=== PATIENT | female | born 1985 | race Caucasian/White ===

== ENCOUNTER 2016-06-09 13:38 | Emergency (ER) | payer OTHER ==
[~2016-06-09 13:38] MED LIST: COLA100C2 OR; NORCO; PRENTAB8 OR; PRIL20CA OR; [UNRECOGNIZED DRUG - OTHER]
[2016-06-09 14:49] LABS: MEAN CORPUSCULAR HEMOGLOBIN 30.8 pg (27.0-33.0); MEAN CORPUSCULAR HGB CONC 32.2 g/dl (32.0-36.5); MEAN CORPUSCULAR VOLUME 95.5 fl (80.0-96.0); RED CELL DISTRIBUTION WIDTH 12.8 % (11.5-14.5); WHITE BLOOD COUNT 5.9 K/mm3 (4.0-10.0)
--- NOTE | 2016-06-09 15:10 | REP ---
FIRST TRIMESTER OBSTETRIC SONOGRAPHY: HISTORY: Cramping and bleeding. FINDINGS: Transabdominal and transvaginal scanning are performed. Uterus has a subseptate appearance. Its dimensions are 8.5 x 4.9 x 6.3 cm. Endometrium is somewhat thickened. Endometrial thickness is 1.5 cm. No intrauterine gestation is seen. No focal uterine mass is seen. No free fluid is noted. Normal ovaries are seen. Right ovary measures 2.7 x 1.4 x 3.1 cm. Left ovary measures 1.7 x 1.9 x 3.2 cm. Resistive indices in the ovaries are normal at 0.63 on the right and 0.45 on the left. IMPRESSION: Nonspecific sonographic findings: No intrauterine gestation seen. Normal ovaries. No adnexal mass or free fluid. Clinical and possibly sonographic followup is advised. Signed by Regan Benitez MD 06/09/2016 04:01 P
--- NOTE | 2016-06-09 16:49 | EDDOCDS ---
Physician Documentation [facility] Name: Doreen Faye Age: 30 yrs Sex: Female : 1985 Arrival Date: 06/09/2016 Time: 13:38 Bed 5 Private MD: NO PRIMARY PHYSICIAN, . Disposition: 06/09/16 16:07 Discharged to Home/Self Care. Impression: Other specified abnormal uterine and vaginal bleeding - threatened Ab. - Condition is Stable. - Discharge Instructions: First Trimester of , Threatened Miscarriage, Threatened Miscarriage, [id number]. - Prescriptions for Vitamin 27- 0.8 mg Oral Tablet - take 1 tablet by ORAL route once daily; 60 tablet. - Work Release Form - 5 day, Medication Reconciliation, Local Pharmacy Hours form. - Follow up: Neal Palma MD; When: Call to arrange an appointment. Follow up: Emergency Department; When: 48 hours recheck quant recheck. - Problem is new. - Symptoms are unchanged. Historical: - Allergies: no known allergies; - Home Meds: 1. none - PMHx: Irregular heart rate; - PSHx: ; - Social history: Smoking status: Patient uses tobacco products, light tobacco smoker. No barriers to communication noted. - Family history: Not pertinent. - : The pt / caregiver states he / she is not on anticoagulants. Home medication list is obtained from the patient. - Exposure Risk Screening:: None identified. 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 1 in. (154.94 cm) (R); 16:40 BP 128 / 68; Pulse 76; Resp 14; Temp 98.3(O); Pulse Ox 99% on R/A; js13 13:40 Body Mass Index 34.96 (83.91 kg, 154.94 cm) lr2 MDM: 14:15 Hcg, Serum Quantitative Ordered. EDMS 14:15 CBC Ordered. EDMS 14:16 Set up pelvic ordered. sd1 14:16 Type & Screen Ordered. EDMS 14:16 UA Ordered. EDMS 14:17 GC & Chlamydia Amplification Ordered. EDMS 14:17 Urine Culture Ordered. EDMS 14:17 Wet Prep Ordered. EDMS 14:21 US 1st trimester Ordered. EDMS 14:49 TRANSVAGINAL US Ordered. EDMS 14:49 DUPLEX SCAN LIMITED (DOPPLER) Ordered. EDMS 15:15 UA Reviewed. sd1 15:15 Type & Screen Reviewed. sd1 15:15 Hcg, Serum Quantitative Reviewed. sd1 15:15 CBC Reviewed. sd1 15:35 Financial registration complete. gb 15:35 [facility] [place] Payment Agreement was scanned into [employer] and attached to record. gb 16:17 GC & Chlamydia Amplification Ordered. EDMS 16:22 Type & Screen Reviewed. sd1 16:22 Wet Prep Reviewed. sd1 16:22 US 1st trimester Reviewed. sd1 Signatures: Dispatcher [employer] Hayley Goldman MD MD sd1 Karen Noble, Reg Reg Amna Moreno,RN RN js13 Sudha Woods RN RN [facility] The chart was reviewed and I authenticate all verbal orders and agree with the evaluation and treatment provided.Attachments: 15:35 [facility] [place] Payment Agreement gb MTDD
--- NOTE | 2016-06-09 16:49 | EDDOCDS ---
Nurse's Notes [facility] Name: Doreen Faye Age: 30 yrs Sex: Female : 1985 Arrival Date: 06/09/2016 Time: 13:38 Bed 5 Private MD: NO PRIMARY PHYSICIAN, . Diagnosis: Other specified abnormal uterine and vaginal bleeding-threatened Ab Presentation: 06/09 13:44 Presenting complaint: Patient states: sharp pains in stomach started this morning, cjh spotting started this afternoon, just found out I'm , no care yet. Risk factors: the patient reports a small or scant amount of vaginal bleeding. Adult Sepsis Screening: The patient does not have new or worsening altered mentation. Patient's respiratory rate is less than 22. Systolic blood pressure is greater than 100. Patient has a qSOFA score of 0- Negative Sepsis Screen. Suicide/Homicide risk assessment- the patient denies having any suicidal and/or homicidal ideations and does not present with any other emotional, behavioral or mental health complaints. Status: Patient is not a director service or dependent. Transition of care: patient was not received from another setting of care. 13:44 Acuity: AURA Level 3 [facility] 13:44 Method Of Arrival: Walkin/Carried/Asstd [facility] Triage Assessment: 13:46 General: Appears in no apparent distress, comfortable, Behavior is appropriate for age, [facility] cooperative. Pain: Location: abdomen Pain currently is 5 out of 10 on a pain scale. HIV screening NA for this visit Offered previously. GI: Reports Pain is 5 out of 10 on a pain scale. 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 none - PMHx: Irregular heart rate; - PSHx: ; - Social history: Smoking status: Patient uses tobacco products, light tobacco smoker. No barriers to communication noted. - Family history: Not pertinent. - : The pt / caregiver states he / she is not on anticoagulants. Home medication list is obtained from the patient. - Exposure Risk Screening:: None identified. Screenin:35 Screening information is obtained from the patient. Fall risk: No risks identified. js13 Assistance ADL's: requires no assistance with activities of daily living. Abuse/DV Screen: The patient / caregiver reports he/she is: not in a situation that causes fear, pain or injury. Nutritional screening: No deficits noted. Advance Directives: There is no active DNR order. home support is adequate. Assessment: 15:35 General: Appears in no apparent distress, Behavior is appropriate for age, cooperative. js13 Pain: Pain currently is 3 out of 10 on a pain scale. Neurological: Level of Consciousness is awake, alert. Respiratory: Airway is patent Respiratory effort is even, unlabored, Respiratory pattern is regular, symmetrical. GI: Abdomen is non- distended Bowel sounds present X 4 quads. Abd is soft and non tender. Derm: Skin is normal. 16:40 Adult Sepsis Screening: The patient does not have new or worsening altered mentation. js13 Patient's respiratory rate is less than 22. Systolic blood pressure is greater than 100. Patient has a qSOFA score of 0- Negative Sepsis Screen. General: Appears in no apparent distress, Behavior is appropriate for age, cooperative. Pain: Pain currently is 2 out of 10 on a pain scale. Neurological: Level of Consciousness is awake, alert. Respiratory: Airway is patent Respiratory effort is even, unlabored, Respiratory pattern is regular, symmetrical. GI: Abdomen is non- distended Bowel sounds present X 4 quads. Abd is soft and non tender. Derm: Skin is normal. Vital Signs: 13:40 BP 135 / 70; Pulse 78; Resp 17; Temp 98.1(T); Pulse Ox 100% ; Weight 83.91 kg (R); lr2 Height 5 ft. 1 in. (154.94 cm) (R); 16:40 BP 128 / 68; Pulse 76; Resp 14; Temp 98.3(O); Pulse Ox 99% on R/A; js13 13:40 Body Mass Index 34.96 (83.91 kg, 154.94 cm) lr2 Vitals: 13:40 Log In Time: June 09, 2016 at 13:38. lr2 ED Course: 13:39 Patient visited by Beatris Esparza. lr2 13:39 NO PRIMARY PHYSICIAN, . is Private Physician. lr2 13:39 Patient moved to Waiting lr2 13:40 Patient moved to Pre RCE lr2 13:45 Triage Initiated [facility] 14:14 Amna Moreno,RN is Primary Nurse. srm 14:14 Hayley Barahona MD is Attending Physician. sd1 14:14 Patient moved to 5 srm 14:17 Patient visited by Hayley Barahona MD. sd1 14:26 Urine Culture Sent. nb2 14:26 UA Sent. nb2 14:28 Patient moved to Ultrasound am17 14:32 CBC Sent. rn1 14:32 Hcg, Serum Quantitative Sent. rn1 14:32 Type & Screen Sent. rn1 14:46 Patient moved to 5 am17 15:25 US 1st trimester Returned. EDMS 15:31 Patient visited by Rudy Spear PCA. jmv 15:33 Patient name changed from Jasma\S\\S\Yunier\S\ to Jasma\S\Denisa\S\Yunier. EDMS 15:35 [facility] [place] Agreement was scanned into [employer] and attached to record. 15:35 The patient / caregiver is instructed regarding the plan of care and ED course. js13 15:35 No IV's were initiated during this patient's visit. No procedures done that require js13 assistance. 15:36 Patient visited by Amna Moreno,JOE. js13 16:06 Neal Palma MD is Referral Physician. sd1 16:10 Wet Prep Sent. dem1 16:10 GC & Chlamydia Amplification Sent. dem1 Order Results: Lab Order: Type & Screen; SPEC'M 06/09/16 14:28 Test: BLOOD TYPE; Value: O POS; Status: F Test: AB SCREEN (INDIRECT GRICELDA)GEL; Value: NEGATIVE; Status: F Lab Order: Hcg, Serum Quantitative; SPEC'M 06/09/16 14:28 Test: HCG, SERUM QUANTITATIVE; Value: 393; Units: MIU/ML; Status: F Test Note: ; GESTATIONAL AGE APPROXIMATE HCG RANGE (MIU/ML) 0.2-1 WEEK 5-50 1-2 WEEKS 50-500 2-3 WEEKS 100-5,000 3-4 WEEKS 500-10,000 4-5 WEEKS 1,000-50,000 5-6 WEEKS 10,000-100,000 6-8 WEEKS 15,000-200,000 2-3 MONTHS 10,000-100,000 NON FEMALES LESS THAN 3.0 Patient samples may contain human heterophilic antibodies that could react with immunoassays to give falsely elevated or depressed results. This assay has been designed to minimize interference from heterophilic antibodies. Elevated hCG levels have also been associated with trophoblastic disease and nontrophoblastic neoplasms. The possibility of having these diseases should be considered before a diagnosis of is made. This test is not intended for use as a surrogate marker for aiding in the diagnosis or monitoring the treatment of cancer patients. [employer] methodology. Lab Order: CBC; SPEC'M 06/09/16 14:28 Test: WHITE BLOOD COUNT; Value: 5.9; Range: 4.0-10.0; Units: K/mm3; Status: F Test: RED BLOOD COUNT; Value: 4.15; Range: 4.00-5.40; Units: M/mm3; Status: F Test: HEMOGLOBIN; Value: 12.8; Range: 12.0-16.0; Units: g/dl; Status: F Test: HEMATOCRIT; Value: 39.6; Range: 36.0-47.0; Units: %; Status: F Test: MEAN CORPUSCULAR VOLUME; Value: 95.5; Range: 80.0-96.0; Units: fl; Status: F Test: MEAN CORPUSCULAR HEMOGLOBIN; Value: 30.8; Range: 27.0-33.0; Units: pg; Status: F Test: MEAN CORPUSCULAR HGB CONC; Value: 32.2; Range: 32.0-36.5; Units: g/dl; Status: F Test: RED CELL DISTRIBUTION WIDTH; Value: 12.8; Range: 11.5-14.5; Units: %; Status: F Test: PLATELET COUNT, AUTOMATED; Value: 199; Range: 150-450; Units: k/mm3; Status: F Lab Order: UA; SPEC'M 06/09/16 14:29 Test: APPEARANCE, URINE; Value: HAZY; Range: CLEAR; Status: F Test: COLOR, URINE; Value: YELLOW; Range: YELLOW; Status: F Test: PH,URINE; Value: 6.0; Range: 5.0-9.0; Units: UNITS; Status: F Test: SPECIFIC GRAVITY URINE AUTO; Value: 1.021; Range: 1.002-1.035; Status: F Test: PROTEIN, URINE AUTO; Value: 1+; Range: NEGATIVE; Abnormal: Above high normal; Units: mg/dL; Status: F Test: GLUCOSE, URINE (UA) AUTO; Value: NEGATIVE; Range: NEGATIVE; Units: mg/dL; Status: F Test: KETONE, URINE AUTO; Value: TRACE; Range: NEGATIVE; Abnormal: Above high normal; Units: mg/dL; Status: F Test: UROBILINOGEN, URINE AUTO; Value: 4.0; Range: 0.0-2.0; Abnormal: Above high normal; Units: mg/dL; Status: F Test: BILIRUBIN, URINE AUTO; Value: NEGATIVE; Range: NEGATIVE; Status: F Test: NITRITE, URINE AUTO; Value: NEGATIVE; Range: NEGATIVE; Status: F Test: LEUKOCYTE ESTERASE, URINE AUTO; Value: NEGATIVE; Range: NEGATIVE; Status: F Test: BLOOD, URINE BLOOD; Value: 3+; Range: NEGATIVE; Abnormal: Above high normal; Status: F Test: WBC, URINE AUTO; Value: 3; Range: 0-3; Units: /HPF; Status: F Test: RBC, URINE AUTO; Value: 152; Range: 0-3; Abnormal: Above high normal; Units: /HPF; Status: F Test: BACTERIA, URINE AUTO; Value: NEGATIVE; Range: NEGATIVE; Status: F Test: SQUAMOUS EPITHELIAL CELL UR AU; Value: 7; Range: 0-6; Units: /HPF; Status: F Test: MUCUS, URINE; Value: SMALL; Range: NEGATIVE; Status: F Test: HYALINE CAST, URINE AUTO; Value: 0; Range: 0-1; Units: /LPF; Status: F Lab Order: Wet Prep; SPEC'M 06/09/16 16:07 Test: WET PREP; Value: WET PREP RESULT; Status: F Test: WET PREP; Value: MANY RBC; Status: F Test: WET PREP; Value: MANY EPITHELIAL CELLS PRESENT; Status: F Test: WET PREP; Value: FEW SHORT RODS PRESENT; Status: F Radiology Order: US 1st trimester Test: US 1st trimester REASON FOR EXAMINATION: pelvic pain/VB/; FIRST TRIMESTER OBSTETRIC SONOGRAPHY:; ; HISTORY: Cramping and bleeding.; ; FINDINGS: Transabdominal and transvaginal scanning are performed. Uterus has a; subseptate appearance. Its dimensions are 8.5 x 4.9 x 6.3 cm. Endometrium is; somewhat thickened. Endometrial thickness is 1.5 cm. No intrauterine gestation; is seen. No focal uterine mass is seen. No free fluid is noted. Normal ovaries; are seen. Right ovary measures 2.7 x 1.4 x 3.1 cm. Left ovary measures 1.7 x; 1.9 x 3.2 cm. Resistive indices in the ovaries are normal at 0.63 on the right; and 0.45 on the left.; ; IMPRESSION:; ; Nonspecific sonographic findings: No intrauterine gestation seen. Normal; ovaries. No adnexal mass or free fluid. Clinical and possibly sonographic; followup is advised.; ; ; ; Unreviewed; Outcome: 16:07 Discharge ordered by Provider. sd1 16:40 Discharge Assessment: Patient awake, alert and oriented x 3. No cognitive and/or js13 functional deficits noted. Patient verbalized understanding of disposition instructions. patient administered narcotics - no. The following High Risk Discharge criteria are identified: None. Discharged to home ambulatory, with significant other. Condition: stable. Discharge instructions given to patient, Instructed on discharge instructions, follow up and referral plans. medication usage, Demonstrated understanding of instructions, medications, Pt was receptive of discharge instructions/ teaching. Property :Personal belongings accompany Pt. 16:42 Ultrasound Study completed. js13 16:48 Prescriptions given X 1, Work note provided to patient. js13 16:48 Patient left the ED. js13 Signatures: Dispatcher [employer] EDMS Hayley Barahona MD MD sd1 Mel Villegas, RN RN [facility] Aide, Karen, Reg Reg gb Philip Jaramillo1 Amna Moreno RN RN js13 Sudha Woods,RN RN Re [place] Robert rn1 Christal Estevez2 Rudy Spear, Beatris Prescott2 MTDD
--- NOTE | 2016-06-11 17:49 | EDDOCDS ---
Physician Documentation [facility] Name: Doreen Faye Age: 30 yrs Sex: Female : 1985 Arrival Date: 06/09/2016 Time: 13:38 Bed 5 Private MD: NO PRIMARY PHYSICIAN, . Disposition: 06/09/16 16:07 Discharged to Home/Self Care. Impression: Other specified abnormal uterine and vaginal bleeding - threatened Ab. - Condition is Stable. - Discharge Instructions: First Trimester of , Threatened Miscarriage, Threatened Miscarriage, Hpfy-[id number]. - Prescriptions for Vitamin 27- 0.8 mg Oral Tablet - take 1 tablet by ORAL route once daily; 60 tablet. - Work Release Form - 5 day, Medication Reconciliation, Local Pharmacy Hours form. - Follow up: Neal Palma MD; When: Call to arrange an appointment. Follow up: Emergency Department; When: 48 hours recheck quant recheck. - Problem is new. - Symptoms are unchanged. Historical: - Allergies: no known allergies; - Home Meds: 1. none - PMHx: Irregular heart rate; - PSHx: ; - Social history: Smoking status: Patient uses tobacco products, light tobacco smoker. No barriers to communication noted. - Family history: Not pertinent. - : The pt / caregiver states he / she is not on anticoagulants. Home medication list is obtained from the patient. - Exposure Risk Screening:: None identified. 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 1 in. (154.94 cm) (R); 16:40 BP 128 / 68; Pulse 76; Resp 14; Temp 98.3(O); Pulse Ox 99% on R/A; js13 13:40 Body Mass Index 34.96 (83.91 kg, 154.94 cm) lr2 MDM: 14:15 Hcg, Serum Quantitative Ordered. EDMS 14:15 CBC Ordered. EDMS 14:16 Set up pelvic ordered. sd1 14:16 Type & Screen Ordered. EDMS 14:16 UA Ordered. EDMS 14:17 GC & Chlamydia Amplification Ordered. EDMS 14:17 Urine Culture Ordered. EDMS 14:17 Wet Prep Ordered. EDMS 14:21 US 1st trimester Ordered. EDMS 14:49 TRANSVAGINAL US Ordered. EDMS 14:49 DUPLEX SCAN LIMITED (DOPPLER) Ordered. EDMS 15:15 UA Reviewed. sd1 15:15 Type & Screen Reviewed. sd1 15:15 Hcg, Serum Quantitative Reviewed. sd1 15:15 CBC Reviewed. sd1 15:35 Financial registration complete. gb 15:35 [facility] Payment Agreement was scanned into [employer] and attached to record. gb 16:17 GC & Chlamydia Amplification Ordered. EDMS 16:22 Type & Screen Reviewed. sd1 16:22 Wet Prep Reviewed. sd1 16:22 US 1st trimester Reviewed. sd1 06/10 12:13 T-Sheet-- Draft Copy was scanned into [employer] and attached to record. gb Signatures: Dispatcher [employer] Hayley Goldman MD MD sd1 Karen Noble, Reg Reg gb Amna Moreno,RN RN js13 Sudha Wodos,RN RN [facility] The chart was reviewed and I authenticate all verbal orders and agree with the evaluation and treatment provided.Attachments: 06/09 15:35 [facility] Payment Agreement gb 06/10 12:13 T-Sheet-- Draft Copy gb Chart Complete MTDD
--- NOTE | 2016-06-11 17:49 | EDDOCDS ---
Nurse's Notes [facility] Name: Doreen Faye Age: 30 yrs Sex: Female : 1985 Arrival Date: 06/09/2016 Time: 13:38 Bed 5 Private MD: NO PRIMARY PHYSICIAN, . Diagnosis: Other specified abnormal uterine and vaginal bleeding-threatened Ab Presentation: 06/09 13:44 Presenting complaint: Patient states: sharp pains in stomach started this morning, cjh spotting started this afternoon, just found out I'm , no care yet. Risk factors: the patient reports a small or scant amount of vaginal bleeding. Adult Sepsis Screening: The patient does not have new or worsening altered mentation. Patient's respiratory rate is less than 22. Systolic blood pressure is greater than 100. Patient has a qSOFA score of 0- Negative Sepsis Screen. Suicide/Homicide risk assessment- the patient denies having any suicidal and/or homicidal ideations and does not present with any other emotional, behavioral or mental health complaints. Status: Patient is not a advisory services associate or dependent. Transition of care: patient was not received from another setting of care. 13:44 Acuity: AURA Level 3 [facility] 13:44 Method Of Arrival: Walkin/Carried/Asstd [facility] Triage Assessment: 13:46 General: Appears in no apparent distress, comfortable, Behavior is appropriate for age, [facility] cooperative. Pain: Location: abdomen Pain currently is 5 out of 10 on a pain scale. HIV screening NA for this visit Offered previously. GI: Reports Pain is 5 out of 10 on a pain scale. 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 none - PMHx: Irregular heart rate; - PSHx: ; - Social history: Smoking status: Patient uses tobacco products, light tobacco smoker. No barriers to communication noted. - Family history: Not pertinent. - : The pt / caregiver states he / she is not on anticoagulants. Home medication list is obtained from the patient. - Exposure Risk Screening:: None identified. Screenin:35 Screening information is obtained from the patient. Fall risk: No risks identified. js13 Assistance ADL's: requires no assistance with activities of daily living. Abuse/DV Screen: The patient / caregiver reports he/she is: not in a situation that causes fear, pain or injury. Nutritional screening: No deficits noted. Advance Directives: There is no active DNR order. home support is adequate. Assessment: 15:35 General: Appears in no apparent distress, Behavior is appropriate for age, cooperative. js13 Pain: Pain currently is 3 out of 10 on a pain scale. Neurological: Level of Consciousness is awake, alert. Respiratory: Airway is patent Respiratory effort is even, unlabored, Respiratory pattern is regular, symmetrical. GI: Abdomen is non- distended Bowel sounds present X 4 quads. Abd is soft and non tender. Derm: Skin is normal. 16:40 Adult Sepsis Screening: The patient does not have new or worsening altered mentation. js13 Patient's respiratory rate is less than 22. Systolic blood pressure is greater than 100. Patient has a qSOFA score of 0- Negative Sepsis Screen. General: Appears in no apparent distress, Behavior is appropriate for age, cooperative. Pain: Pain currently is 2 out of 10 on a pain scale. Neurological: Level of Consciousness is awake, alert. Respiratory: Airway is patent Respiratory effort is even, unlabored, Respiratory pattern is regular, symmetrical. GI: Abdomen is non- distended Bowel sounds present X 4 quads. Abd is soft and non tender. Derm: Skin is normal. Vital Signs: 13:40 BP 135 / 70; Pulse 78; Resp 17; Temp 98.1(T); Pulse Ox 100% ; Weight 83.91 kg (R); lr2 Height 5 ft. 1 in. (154.94 cm) (R); 16:40 BP 128 / 68; Pulse 76; Resp 14; Temp 98.3(O); Pulse Ox 99% on R/A; js13 13:40 Body Mass Index 34.96 (83.91 kg, 154.94 cm) lr2 Vitals: 13:40 Log In Time: June 09, 2016 at 13:38. lr2 ED Course: 13:39 Patient visited by Beatris Esparza. lr2 13:39 NO PRIMARY PHYSICIAN, . is Private Physician. lr2 13:39 Patient moved to Waiting lr2 13:40 Patient moved to Pre RCE lr2 13:45 Triage Initiated [facility] 14:14 Amna Moreno,RN is Primary Nurse. srm 14:14 Hayley Barahona MD is Attending Physician. sd1 14:14 Patient moved to 5 srm 14:17 Patient visited by Hayley Barahona MD. sd1 14:26 Urine Culture Sent. nb2 14:26 UA Sent. nb2 14:28 Patient moved to Ultrasound am17 14:32 CBC Sent. rn1 14:32 Hcg, Serum Quantitative Sent. rn1 14:32 Type & Screen Sent. rn1 14:46 Patient moved to 5 am17 15:25 US 1st trimester Returned. EDMS 15:31 Patient visited by Rudy Spear PCA. jmv 15:33 Patient name changed from Jasma\S\\S\Yunier\S\ to Jasma\S\Denisa\S\Yunier. EDMS 15:35 [facility] [place] Payment Agreement was scanned into [employer] and attached to record. gb 15:35 The patient / caregiver is instructed regarding the plan of care and ED course. js13 15:35 No IV's were initiated during this patient's visit. No procedures done that require js13 assistance. 15:36 Patient visited by Amna Moreno,JOE. js13 16:06 Neal Palma MD is Referral Physician. sd1 16:10 Wet Prep Sent. dem1 16:10 GC & Chlamydia Amplification Sent. dem1 16:51 US 1st trimester Returned. EDMS 02 12:13 T-Sheet-- Draft Copy was scanned into [employer] and attached to record. gb Order Results: Lab Order: Type & Screen; SPEC'M 06/09/16 14:28 Test: BLOOD TYPE; Value: O POS; Status: F Test: AB SCREEN (INDIRECT GRICELDA)GEL; Value: NEGATIVE; Status: F Lab Order: Hcg, Serum Quantitative; SPEC'M 06/09/16 14:28 Test: HCG, SERUM QUANTITATIVE; Value: 393; Units: MIU/ML; Status: F Test Note: ; GESTATIONAL AGE APPROXIMATE HCG RANGE (MIU/ML) 0.2-1 WEEK 5-50 1-2 WEEKS 50-500 2-3 WEEKS 100-5,000 3-4 WEEKS 500-10,000 4-5 WEEKS 1,000-50,000 5-6 WEEKS 10,000-100,000 6-8 WEEKS 15,000-200,000 2-3 MONTHS 10,000-100,000 NON FEMALES LESS THAN 3.0 Patient samples may contain human heterophilic antibodies that could react with immunoassays to give falsely elevated or depressed results. This assay has been designed to minimize interference from heterophilic antibodies. Elevated hCG levels have also been associated with trophoblastic disease and nontrophoblastic neoplasms. The possibility of having these diseases should be considered before a diagnosis of is made. This test is not intended for use as a surrogate marker for aiding in the diagnosis or monitoring the treatment of cancer patients. [employer] methodology. Lab Order: CBC; SPEC'M 06/09/16 14:28 Test: WHITE BLOOD COUNT; Value: 5.9; Range: 4.0-10.0; Units: K/mm3; Status: F Test: RED BLOOD COUNT; Value: 4.15; Range: 4.00-5.40; Units: M/mm3; Status: F Test: HEMOGLOBIN; Value: 12.8; Range: 12.0-16.0; Units: g/dl; Status: F Test: HEMATOCRIT; Value: 39.6; Range: 36.0-47.0; Units: %; Status: F Test: MEAN CORPUSCULAR VOLUME; Value: 95.5; Range: 80.0-96.0; Units: fl; Status: F Test: MEAN CORPUSCULAR HEMOGLOBIN; Value: 30.8; Range: 27.0-33.0; Units: pg; Status: F Test: MEAN CORPUSCULAR HGB CONC; Value: 32.2; Range: 32.0-36.5; Units: g/dl; Status: F Test: RED CELL DISTRIBUTION WIDTH; Value: 12.8; Range: 11.5-14.5; Units: %; Status: F Test: PLATELET COUNT, AUTOMATED; Value: 199; Range: 150-450; Units: k/mm3; Status: F Lab Order: UA; SPEC'M 06/09/16 14:29 Test: APPEARANCE, URINE; Value: HAZY; Range: CLEAR; Status: F Test: COLOR, URINE; Value: YELLOW; Range: YELLOW; Status: F Test: PH,URINE; Value: 6.0; Range: 5.0-9.0; Units: UNITS; Status: F Test: SPECIFIC GRAVITY URINE AUTO; Value: 1.021; Range: 1.002-1.035; Status: F Test: PROTEIN, URINE AUTO; Value: 1+; Range: NEGATIVE; Abnormal: Above high normal; Units: mg/dL; Status: F Test: GLUCOSE, URINE (UA) AUTO; Value: NEGATIVE; Range: NEGATIVE; Units: mg/dL; Status: F Test: KETONE, URINE AUTO; Value: TRACE; Range: NEGATIVE; Abnormal: Above high normal; Units: mg/dL; Status: F Test: UROBILINOGEN, URINE AUTO; Value: 4.0; Range: 0.0-2.0; Abnormal: Above high normal; Units: mg/dL; Status: F Test: BILIRUBIN, URINE AUTO; Value: NEGATIVE; Range: NEGATIVE; Status: F Test: NITRITE, URINE AUTO; Value: NEGATIVE; Range: NEGATIVE; Status: F Test: LEUKOCYTE ESTERASE, URINE AUTO; Value: NEGATIVE; Range: NEGATIVE; Status: F Test: BLOOD, URINE BLOOD; Value: 3+; Range: NEGATIVE; Abnormal: Above high normal; Status: F Test: WBC, URINE AUTO; Value: 3; Range: 0-3; Units: /HPF; Status: F Test: RBC, URINE AUTO; Value: 152; Range: 0-3; Abnormal: Above high normal; Units: /HPF; Status: F Test: BACTERIA, URINE AUTO; Value: NEGATIVE; Range: NEGATIVE; Status: F Test: SQUAMOUS EPITHELIAL CELL UR AU; Value: 7; Range: 0-6; Units: /HPF; Status: F Test: MUCUS, URINE; Value: SMALL; Range: NEGATIVE; Status: F Test: HYALINE CAST, URINE AUTO; Value: 0; Range: 0-1; Units: /LPF; Status: F Lab Order: Urine Culture; SPEC'M 06/09/16 14:29 Test: URINE CULTURE; Value: <EXTERNAL COMMENT eCWMed> FULL REPORT IN LAB NOTES (eCW and Medent).; Status: F Test: URINE CULTURE; Value: URINE CULTURE RESULT NO GROWTH; Status: F Lab Order: Wet Prep; SPEC'M 06/09/16 16:07 Test: WET PREP; Value: WET PREP RESULT; Status: F Test: WET PREP; Value: MANY RBC; Status: F Test: WET PREP; Value: MANY EPITHELIAL CELLS PRESENT; Status: F Test: WET PREP; Value: FEW SHORT RODS PRESENT; Status: F Lab Order: GC & Chlamydia Amplification; SPEC'M 06/09/16 14:21 Test: CHLAMYDIA DNA AMPLIFICATION; Value: NEGATIVE; Range: NEGATIVE; Status: F Test: GC DNA AMPLIFICATION; Value: NEGATIVE; Range: NEGATIVE; Status: F Radiology Order: US 1st trimester Test: US 1st trimester REASON FOR EXAMINATION: pelvic pain/VB/; FIRST TRIMESTER OBSTETRIC SONOGRAPHY:; ; HISTORY: Cramping and bleeding.; ; FINDINGS: Transabdominal and transvaginal scanning are performed. Uterus has a; subseptate appearance. Its dimensions are 8.5 x 4.9 x 6.3 cm. Endometrium is; somewhat thickened. Endometrial thickness is 1.5 cm. No intrauterine gestation; is seen. No focal uterine mass is seen. No free fluid is noted. Normal ovaries; are seen. Right ovary measures 2.7 x 1.4 x 3.1 cm. Left ovary measures 1.7 x; 1.9 x 3.2 cm. Resistive indices in the ovaries are normal at 0.63 on the right; and 0.45 on the left.; ; IMPRESSION:; ; Nonspecific sonographic findings: No intrauterine gestation seen. Normal; ovaries. No adnexal mass or free fluid. Clinical and possibly sonographic; followup is advised.; ; ; Signed by; Regan Benitez MD 06/09/2016 04:01 P; Outcome: 06/09 16:07 Discharge ordered by Provider. sd1 16:40 Discharge Assessment: Patient awake, alert and oriented x 3. No cognitive and/or js13 functional deficits noted. Patient verbalized understanding of disposition instructions. patient administered narcotics - no. The following High Risk Discharge criteria are identified: None. Discharged to home ambulatory, with significant other. Condition: stable. Discharge instructions given to patient, Instructed on discharge instructions, follow up and referral plans. medication usage, Demonstrated understanding of instructions, medications, Pt was receptive of discharge instructions/ teaching. Property :Personal belongings accompany Pt. 16:42 Ultrasound Study completed. js13 16:48 Prescriptions given X 1, Work note provided to patient. js13 16:48 Patient left the ED. js13 Signatures: Dispatcher [employer] JAYLINWY [place], MD SAMIA Hardy sd1 Mel Villegas, RN RN zuleyma Noble, Karen, Phil Jaramillo, Philip diamond1 Josh,AmnaRN RN js13 Sudha WoodsRN RN chris Zohreh, Re cuellar17 Vidal Jara rn1 Christal Estevez2 Rudy Spear, SPOOL MAKER SPOOL MAKER jmv Isaias, Beatris lr2 Chart Complete MTDD
--- NOTE | 2016-06-11 17:49 | EDDOCDS ---
Physician Documentation [facility] Name: Doreen Faye Age: 30 yrs Sex: Female : 1985 Arrival Date: 06/09/2016 Time: 13:38 Bed 5 Private MD: NO PRIMARY PHYSICIAN, . Disposition: 06/09/16 16:07 Discharged to Home/Self Care. Impression: Other specified abnormal uterine and vaginal bleeding - threatened Ab. - Condition is Stable. - Discharge Instructions: First Trimester of , Threatened Miscarriage, Threatened Miscarriage, [id number]. - Prescriptions for Vitamin 27- 0.8 mg Oral Tablet - take 1 tablet by ORAL route once daily; 60 tablet. - Work Release Form - 5 day, Medication Reconciliation, Local Pharmacy Hours form. - Follow up: Neal Palma MD; When: Call to arrange an appointment. Follow up: Emergency Department; When: 48 hours recheck quant recheck. - Problem is new. - Symptoms are unchanged. Historical: - Allergies: no known allergies; - Home Meds: 1. none - PMHx: Irregular heart rate; - PSHx: ; - Social history: Smoking status: Patient uses tobacco products, light tobacco smoker. No barriers to communication noted. - Family history: Not pertinent. - : The pt / caregiver states he / she is not on anticoagulants. Home medication list is obtained from the patient. - Exposure Risk Screening:: None identified. 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 1 in. (154.94 cm) (R); 16:40 BP 128 / 68; Pulse 76; Resp 14; Temp 98.3(O); Pulse Ox 99% on R/A; js13 13:40 Body Mass Index 34.96 (83.91 kg, 154.94 cm) lr2 MDM: 14:15 Hcg, Serum Quantitative Ordered. EDMS 14:15 CBC Ordered. EDMS 14:16 Set up pelvic ordered. sd1 14:16 Type & Screen Ordered. EDMS 14:16 UA Ordered. EDMS 14:17 GC & Chlamydia Amplification Ordered. EDMS 14:17 Urine Culture Ordered. EDMS 14:17 Wet Prep Ordered. EDMS 14:21 US 1st trimester Ordered. EDMS 14:49 TRANSVAGINAL US Ordered. EDMS 14:49 DUPLEX SCAN LIMITED (DOPPLER) Ordered. EDMS 15:15 UA Reviewed. sd1 15:15 Type & Screen Reviewed. sd1 15:15 Hcg, Serum Quantitative Reviewed. sd1 15:15 CBC Reviewed. sd1 15:35 Financial registration complete. gb 15:35 [facility] Payment Agreement was scanned into [employer] and attached to record. gb 16:17 GC & Chlamydia Amplification Ordered. EDMS 16:22 Type & Screen Reviewed. sd1 16:22 Wet Prep Reviewed. sd1 16:22 US 1st trimester Reviewed. sd1 06/10 12:13 T-Sheet-- Draft Copy was scanned into [employer] and attached to record. gb Signatures: Dispatcher [employer] Hayley Goldman MD MD sd1 Karen Noble, Reg Reg gb Amna Moreno,RN RN js13 Sudha Woods,RN RN [facility] The chart was reviewed and I authenticate all verbal orders and agree with the evaluation and treatment provided.Attachments: 06/09 15:35 [facility] Payment Agreement gb 06/10 12:13 T-Sheet-- Draft Copy gb Chart Complete MTDD
--- NOTE | 2016-06-11 18:16 | EDDOCDS ---
Physician Documentation [facility] Name: Doreen Faye Age: 30 yrs Sex: Female : 1985 Arrival Date: 06/09/2016 Time: 13:38 Bed 5 Private MD: NO PRIMARY PHYSICIAN, . Disposition: 06/09/16 16:07 Discharged to Home/Self Care. Impression: Other specified abnormal uterine and vaginal bleeding - threatened Ab. - Condition is Stable. - Discharge Instructions: First Trimester of , Threatened Miscarriage, Threatened Miscarriage, [id number]. - Prescriptions for Vitamin 27- 0.8 mg Oral Tablet - take 1 tablet by ORAL route once daily; 60 tablet. - Work Release Form - 5 day, Medication Reconciliation, Local Pharmacy Hours form. - Follow up: Neal Palma MD; When: Call to arrange an appointment. Follow up: Emergency Department; When: 48 hours recheck quant recheck. - Problem is new. - Symptoms are unchanged. Historical: - Allergies: no known allergies; - Home Meds: 1. none - PMHx: Irregular heart rate; - PSHx: ; - Social history: Smoking status: Patient uses tobacco products, light tobacco smoker. No barriers to communication noted. - Family history: Not pertinent. - : The pt / caregiver states he / she is not on anticoagulants. Home medication list is obtained from the patient. - Exposure Risk Screening:: None identified. 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 1 in. (154.94 cm) (R); 16:40 BP 128 / 68; Pulse 76; Resp 14; Temp 98.3(O); Pulse Ox 99% on R/A; js13 13:40 Body Mass Index 34.96 (83.91 kg, 154.94 cm) lr2 MDM: 14:15 Hcg, Serum Quantitative Ordered. EDMS 14:15 CBC Ordered. EDMS 14:16 Set up pelvic ordered. sd1 14:16 Type & Screen Ordered. EDMS 14:16 UA Ordered. EDMS 14:17 GC & Chlamydia Amplification Ordered. EDMS 14:17 Urine Culture Ordered. EDMS 14:17 Wet Prep Ordered. EDMS 14:21 US 1st trimester Ordered. EDMS 14:49 TRANSVAGINAL US Ordered. EDMS 14:49 DUPLEX SCAN LIMITED (DOPPLER) Ordered. EDMS 15:15 UA Reviewed. sd1 15:15 Type & Screen Reviewed. sd1 15:15 Hcg, Serum Quantitative Reviewed. sd1 15:15 CBC Reviewed. sd1 15:35 Financial registration complete. gb 15:35 [facility] Payment Agreement was scanned into [employer] and attached to record. gb 16:17 GC & Chlamydia Amplification Ordered. EDMS 16:22 Type & Screen Reviewed. sd1 16:22 Wet Prep Reviewed. sd1 16:22 US 1st trimester Reviewed. sd1 06/10 12:13 T-Sheet-- Draft Copy was scanned into [employer] and attached to record. gb Addendum: 06/11/2016 18:14 Addendum: pt c/b to get hcg . told 213...therefore lower and pt aware miscarriage ml however no iup seen on us - therefore need to follow. vijay godoy - she agrees to see pt in close fu and given pt info. amparo naqvi to contact pt - give her contact info. pt absolutely aware she must be seen in fu javeir mlg. Signatures: Dispatcher [employer] Hayley Goldman MD MD sd1 Ike Westbrook MD MD Karen Noble, Reg Reg Amna Moreno,RN RN js13 Sudha Woods,RN RN [facility] The chart was reviewed and I authenticate all verbal orders and agree with the evaluation and treatment provided.Attachments: 06/09 15:35 [facility] Payment Agreement gb 06/10 12:13 T-Sheet-- Draft Copy gb MTDD
--- NOTE | 2016-06-11 18:16 | EDDOCDS ---
Physician Documentation [facility] Name: Doreen Faye Age: 30 yrs Sex: Female : 1985 Arrival Date: 06/09/2016 Time: 13:38 Bed 5 Private MD: NO PRIMARY PHYSICIAN, . Disposition: 06/09/16 16:07 Discharged to Home/Self Care. Impression: Other specified abnormal uterine and vaginal bleeding - threatened Ab. - Condition is Stable. - Discharge Instructions: First Trimester of , Threatened Miscarriage, Threatened Miscarriage, [id number]. - Prescriptions for Vitamin 27- 0.8 mg Oral Tablet - take 1 tablet by ORAL route once daily; 60 tablet. - Work Release Form - 5 day, Medication Reconciliation, Local Pharmacy Hours form. - Follow up: Neal Palma MD; When: Call to arrange an appointment. Follow up: Emergency Department; When: 48 hours recheck quant recheck. - Problem is new. - Symptoms are unchanged. Historical: - Allergies: no known allergies; - Home Meds: 1. none - PMHx: Irregular heart rate; - PSHx: ; - Social history: Smoking status: Patient uses tobacco products, light tobacco smoker. No barriers to communication noted. - Family history: Not pertinent. - : The pt / caregiver states he / she is not on anticoagulants. Home medication list is obtained from the patient. - Exposure Risk Screening:: None identified. 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 Gestational age from LMP: 5 weeks 3 days Vital Signs: 13:40 BP 135 / 70; Pulse 78; Resp 17; Temp 98.1(T); Pulse Ox 100% ; Weight 83.91 kg / 184.99 lr2 lbs (R); Height 5 ft. 1 in. (154.94 cm) (R); 16:40 BP 128 / 68; Pulse 76; Resp 14; Temp 98.3(O); Pulse Ox 99% on R/A; js13 13:40 Body Mass Index 34.96 (83.91 kg, 154.94 cm) lr2 MDM: 14:15 Hcg, Serum Quantitative Ordered. EDMS 14:15 CBC Ordered. EDMS 14:16 Set up pelvic ordered. sd1 14:16 Type & Screen Ordered. EDMS 14:16 UA Ordered. EDMS 14:17 GC & Chlamydia Amplification Ordered. EDMS 14:17 Urine Culture Ordered. EDMS 14:17 Wet Prep Ordered. EDMS 14:21 US 1st trimester Ordered. EDMS 14:49 TRANSVAGINAL US Ordered. EDMS 14:49 DUPLEX SCAN LIMITED (DOPPLER) Ordered. EDMS 15:15 UA Reviewed. sd1 15:15 Type & Screen Reviewed. sd1 15:15 Hcg, Serum Quantitative Reviewed. sd1 15:15 CBC Reviewed. sd1 15:35 Financial registration complete. gb 15:35 [facility] Payment Agreement was scanned into [employer] and attached to record. gb 16:17 GC & Chlamydia Amplification Ordered. EDMS 16:22 Type & Screen Reviewed. sd1 16:22 Wet Prep Reviewed. sd1 16:22 US 1st trimester Reviewed. sd1 06/10 12:13 T-Sheet-- Draft Copy was scanned into [employer] and attached to record. gb Addendum: 06/11/2016 18:14 Addendum: pt c/b to get hcg . told 213...therefore lower and pt aware miscarriage ml however no iup seen on us - therefore need to follow. vijay godoy - she agrees to see pt in close fu and given pt info. amparo naqvi to contact pt - give her contact info. pt absolutely aware she must be seen in fu javier mlg. Signatures: Dispatcher [employer] Hayley Goldman MD MD sd1 Ike Westbrook MD MD Karen Noble, Reg Reg Amna Moreno,RN RN js13 Sudha Woods,RN RN [facility] The chart was reviewed and I authenticate all verbal orders and agree with the evaluation and treatment provided.Attachments: 06/09 15:35 [facility] [place] Payment Agreement gb 06/10 12:13 T-Sheet-- Draft Copy gb MTDD
--- NOTE | 2016-06-11 18:16 | EDDOCDS ---
Nurse's Notes [facility] Name: Doreen Faye Age: 30 yrs Sex: Female : 1985 Arrival Date: 06/09/2016 Time: 13:38 Bed 5 Private MD: NO PRIMARY PHYSICIAN, . Diagnosis: Other specified abnormal uterine and vaginal bleeding-threatened Ab Presentation: 06/09 13:44 Presenting complaint: Patient states: sharp pains in stomach started this morning, cjh spotting started this afternoon, just found out I'm , no care yet. Risk factors: the patient reports a small or scant amount of vaginal bleeding. Adult Sepsis Screening: The patient does not have new or worsening altered mentation. Patient's respiratory rate is less than 22. Systolic blood pressure is greater than 100. Patient has a qSOFA score of 0- Negative Sepsis Screen. Suicide/Homicide risk assessment- the patient denies having any suicidal and/or homicidal ideations and does not present with any other emotional, behavioral or mental health complaints. Status: Patient is not a service advocate contact or dependent. Transition of care: patient was not received from another setting of care. 13:44 Acuity: AURA Level 3 [facility] 13:44 Method Of Arrival: Walkin/Carried/Asstd [facility] Triage Assessment: 13:46 General: Appears in no apparent distress, comfortable, Behavior is appropriate for age, [facility] cooperative. Pain: Location: abdomen Pain currently is 5 out of 10 on a pain scale. HIV screening NA for this visit Offered previously. GI: Reports Pain is 5 out of 10 on a pain scale. 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 none - PMHx: Irregular heart rate; - PSHx: ; - Social history: Smoking status: Patient uses tobacco products, light tobacco smoker. No barriers to communication noted. - Family history: Not pertinent. - : The pt / caregiver states he / she is not on anticoagulants. Home medication list is obtained from the patient. - Exposure Risk Screening:: None identified. Screenin:35 Screening information is obtained from the patient. Fall risk: No risks identified. js13 Assistance ADL's: requires no assistance with activities of daily living. Abuse/DV Screen: The patient / caregiver reports he/she is: not in a situation that causes fear, pain or injury. Nutritional screening: No deficits noted. Advance Directives: There is no active DNR order. home support is adequate. Assessment: 15:35 General: Appears in no apparent distress, Behavior is appropriate for age, cooperative. js13 Pain: Pain currently is 3 out of 10 on a pain scale. Neurological: Level of Consciousness is awake, alert. Respiratory: Airway is patent Respiratory effort is even, unlabored, Respiratory pattern is regular, symmetrical. GI: Abdomen is non- distended Bowel sounds present X 4 quads. Abd is soft and non tender. Derm: Skin is normal. 16:40 Adult Sepsis Screening: The patient does not have new or worsening altered mentation. js13 Patient's respiratory rate is less than 22. Systolic blood pressure is greater than 100. Patient has a qSOFA score of 0- Negative Sepsis Screen. General: Appears in no apparent distress, Behavior is appropriate for age, cooperative. Pain: Pain currently is 2 out of 10 on a pain scale. Neurological: Level of Consciousness is awake, alert. Respiratory: Airway is patent Respiratory effort is even, unlabored, Respiratory pattern is regular, symmetrical. GI: Abdomen is non- distended Bowel sounds present X 4 quads. Abd is soft and non tender. Derm: Skin is normal. Vital Signs: 13:40 BP 135 / 70; Pulse 78; Resp 17; Temp 98.1(T); Pulse Ox 100% ; Weight 83.91 kg (R); lr2 Height 5 ft. 1 in. (154.94 cm) (R); 16:40 BP 128 / 68; Pulse 76; Resp 14; Temp 98.3(O); Pulse Ox 99% on R/A; js13 13:40 Body Mass Index 34.96 (83.91 kg, 154.94 cm) lr2 Vitals: 13:40 Log In Time: June 09, 2016 at 13:38. lr2 ED Course: 13:39 Patient visited by Beatris Esparza. lr2 13:39 NO PRIMARY PHYSICIAN, . is Private Physician. lr2 13:39 Patient moved to Waiting lr2 13:40 Patient moved to Pre RCE lr2 13:45 Triage Initiated [facility] 14:14 Amna Moreno,RN is Primary Nurse. srm 14:14 Hayley Barahona MD is Attending Physician. sd1 14:14 Patient moved to 5 srm 14:17 Patient visited by Hayley Barahona MD. sd1 14:26 Urine Culture Sent. nb2 14:26 UA Sent. nb2 14:28 Patient moved to Ultrasound am17 14:32 CBC Sent. rn1 14:32 Hcg, Serum Quantitative Sent. rn1 14:32 Type & Screen Sent. rn1 14:46 Patient moved to 5 am17 15:25 US 1st trimester Returned. EDMS 15:31 Patient visited by Rudy Spear PCA. jmv 15:33 Patient name changed from Jasma\S\\S\Yunier\S\ to Jasma\S\Denisa\S\Yunier. EDMS 15:35 [place] [place] was scanned into [employer] and attached to record. gb 15:35 The patient / caregiver is instructed regarding the plan of care and ED course. js13 15:35 No IV's were initiated during this patient's visit. No procedures done that require js13 assistance. 15:36 Patient visited by Amna Moreno,JOE. js13 16:06 Neal Palma MD is Referral Physician. sd1 16:10 Wet Prep Sent. dem1 16:10 GC & Chlamydia Amplification Sent. dem1 16:51 US 1st trimester Returned. EDMS 02 12:13 T-Sheet-- Draft Copy was scanned into [employer] and attached to record. gb Order Results: Lab Order: Type & Screen; SPEC'M 06/09/16 14:28 Test: BLOOD TYPE; Value: O POS; Status: F Test: AB SCREEN (INDIRECT GRICELDA)GEL; Value: NEGATIVE; Status: F Lab Order: Hcg, Serum Quantitative; SPEC'M 06/09/16 14:28 Test: HCG, SERUM QUANTITATIVE; Value: 393; Units: MIU/ML; Status: F Test Note: ; GESTATIONAL AGE APPROXIMATE HCG RANGE (MIU/ML) 0.2-1 WEEK 5-50 1-2 WEEKS 50-500 2-3 WEEKS 100-5,000 3-4 WEEKS 500-10,000 4-5 WEEKS 1,000-50,000 5-6 WEEKS 10,000-100,000 6-8 WEEKS 15,000-200,000 2-3 MONTHS 10,000-100,000 NON FEMALES LESS THAN 3.0 Patient samples may contain human heterophilic antibodies that could react with immunoassays to give falsely elevated or depressed results. This assay has been designed to minimize interference from heterophilic antibodies. Elevated hCG levels have also been associated with trophoblastic disease and nontrophoblastic neoplasms. The possibility of having these diseases should be considered before a diagnosis of is made. This test is not intended for use as a surrogate marker for aiding in the diagnosis or monitoring the treatment of cancer patients. [employer] methodology. Lab Order: CBC; SPEC'M 06/09/16 14:28 Test: WHITE BLOOD COUNT; Value: 5.9; Range: 4.0-10.0; Units: K/mm3; Status: F Test: RED BLOOD COUNT; Value: 4.15; Range: 4.00-5.40; Units: M/mm3; Status: F Test: HEMOGLOBIN; Value: 12.8; Range: 12.0-16.0; Units: g/dl; Status: F Test: HEMATOCRIT; Value: 39.6; Range: 36.0-47.0; Units: %; Status: F Test: MEAN CORPUSCULAR VOLUME; Value: 95.5; Range: 80.0-96.0; Units: fl; Status: F Test: MEAN CORPUSCULAR HEMOGLOBIN; Value: 30.8; Range: 27.0-33.0; Units: pg; Status: F Test: MEAN CORPUSCULAR HGB CONC; Value: 32.2; Range: 32.0-36.5; Units: g/dl; Status: F Test: RED CELL DISTRIBUTION WIDTH; Value: 12.8; Range: 11.5-14.5; Units: %; Status: F Test: PLATELET COUNT, AUTOMATED; Value: 199; Range: 150-450; Units: k/mm3; Status: F Lab Order: UA; SPEC'M 06/09/16 14:29 Test: APPEARANCE, URINE; Value: HAZY; Range: CLEAR; Status: F Test: COLOR, URINE; Value: YELLOW; Range: YELLOW; Status: F Test: PH,URINE; Value: 6.0; Range: 5.0-9.0; Units: UNITS; Status: F Test: SPECIFIC GRAVITY URINE AUTO; Value: 1.021; Range: 1.002-1.035; Status: F Test: PROTEIN, URINE AUTO; Value: 1+; Range: NEGATIVE; Abnormal: Above high normal; Units: mg/dL; Status: F Test: GLUCOSE, URINE (UA) AUTO; Value: NEGATIVE; Range: NEGATIVE; Units: mg/dL; Status: F Test: KETONE, URINE AUTO; Value: TRACE; Range: NEGATIVE; Abnormal: Above high normal; Units: mg/dL; Status: F Test: UROBILINOGEN, URINE AUTO; Value: 4.0; Range: 0.0-2.0; Abnormal: Above high normal; Units: mg/dL; Status: F Test: BILIRUBIN, URINE AUTO; Value: NEGATIVE; Range: NEGATIVE; Status: F Test: NITRITE, URINE AUTO; Value: NEGATIVE; Range: NEGATIVE; Status: F Test: LEUKOCYTE ESTERASE, URINE AUTO; Value: NEGATIVE; Range: NEGATIVE; Status: F Test: BLOOD, URINE BLOOD; Value: 3+; Range: NEGATIVE; Abnormal: Above high normal; Status: F Test: WBC, URINE AUTO; Value: 3; Range: 0-3; Units: /HPF; Status: F Test: RBC, URINE AUTO; Value: 152; Range: 0-3; Abnormal: Above high normal; Units: /HPF; Status: F Test: BACTERIA, URINE AUTO; Value: NEGATIVE; Range: NEGATIVE; Status: F Test: SQUAMOUS EPITHELIAL CELL UR AU; Value: 7; Range: 0-6; Units: /HPF; Status: F Test: MUCUS, URINE; Value: SMALL; Range: NEGATIVE; Status: F Test: HYALINE CAST, URINE AUTO; Value: 0; Range: 0-1; Units: /LPF; Status: F Lab Order: Urine Culture; SPEC'M 06/09/16 14:29 Test: URINE CULTURE; Value: <EXTERNAL COMMENT eCWMed> FULL REPORT IN LAB NOTES (eCW and Medent).; Status: F Test: URINE CULTURE; Value: URINE CULTURE RESULT NO GROWTH; Status: F Lab Order: Wet Prep; SPEC'M 06/09/16 16:07 Test: WET PREP; Value: WET PREP RESULT; Status: F Test: WET PREP; Value: MANY RBC; Status: F Test: WET PREP; Value: MANY EPITHELIAL CELLS PRESENT; Status: F Test: WET PREP; Value: FEW SHORT RODS PRESENT; Status: F Lab Order: GC & Chlamydia Amplification; SPEC'M 06/09/16 14:21 Test: CHLAMYDIA DNA AMPLIFICATION; Value: NEGATIVE; Range: NEGATIVE; Status: F Test: GC DNA AMPLIFICATION; Value: NEGATIVE; Range: NEGATIVE; Status: F Radiology Order: US 1st trimester Test: US 1st trimester REASON FOR EXAMINATION: pelvic pain/VB/; FIRST TRIMESTER OBSTETRIC SONOGRAPHY:; ; HISTORY: Cramping and bleeding.; ; FINDINGS: Transabdominal and transvaginal scanning are performed. Uterus has a; subseptate appearance. Its dimensions are 8.5 x 4.9 x 6.3 cm. Endometrium is; somewhat thickened. Endometrial thickness is 1.5 cm. No intrauterine gestation; is seen. No focal uterine mass is seen. No free fluid is noted. Normal ovaries; are seen. Right ovary measures 2.7 x 1.4 x 3.1 cm. Left ovary measures 1.7 x; 1.9 x 3.2 cm. Resistive indices in the ovaries are normal at 0.63 on the right; and 0.45 on the left.; ; IMPRESSION:; ; Nonspecific sonographic findings: No intrauterine gestation seen. Normal; ovaries. No adnexal mass or free fluid. Clinical and possibly sonographic; followup is advised.; ; ; Signed by; Regan Benitez MD 06/09/2016 04:01 P; Outcome: 06/09 16:07 Discharge ordered by Provider. sd1 16:40 Discharge Assessment: Patient awake, alert and oriented x 3. No cognitive and/or js13 functional deficits noted. Patient verbalized understanding of disposition instructions. patient administered narcotics - no. The following High Risk Discharge criteria are identified: None. Discharged to home ambulatory, with significant other. Condition: stable. Discharge instructions given to patient, Instructed on discharge instructions, follow up and referral plans. medication usage, Demonstrated understanding of instructions, medications, Pt was receptive of discharge instructions/ teaching. Property :Personal belongings accompany Pt. 16:42 Ultrasound Study completed. js13 16:48 Prescriptions given X 1, Work note provided to patient. js13 16:48 Patient left the ED. js13 Signatures: Dispatcher [employer] [facility] [place], MD SAMIA Hardy sd1 Mel Villegas, RN RN [facility] Aide, Karen, Phil Jaramillo, [place]1 Josh,AmnaRN RN js13 Sudha WoodsRN RN chris Zohreh, Re cuellar17 Vidal Jara rn1 Christal Estevez2 Rudy Spear, DOCK LOADER DOCK LOADER jmv Beatris Esparza lr2 MTDD
--- NOTE | 2016-06-11 18:26 | EDDOCDS ---
Physician Documentation [facility] Name: Doreen Faye Age: 30 yrs Sex: Female : 1985 Arrival Date: 06/09/2016 Time: 13:38 Bed 5 Private MD: NO PRIMARY PHYSICIAN, . Disposition: 06/09/16 16:07 Discharged to Home/Self Care. Impression: Other specified abnormal uterine and vaginal bleeding - threatened Ab. - Condition is Stable. - Discharge Instructions: First Trimester of , Threatened Miscarriage, Threatened Miscarriage, [id number]. - Prescriptions for Vitamin 27- 0.8 mg Oral Tablet - take 1 tablet by ORAL route once daily; 60 tablet. - Work Release Form - 5 day, Medication Reconciliation, Local Pharmacy Hours form. - Follow up: Neal Palma MD; When: Call to arrange an appointment. Follow up: Emergency Department; When: 48 hours recheck quant recheck. - Problem is new. - Symptoms are unchanged. Historical: - Allergies: no known allergies; - Home Meds: 1. none - PMHx: Irregular heart rate; - PSHx: ; - Social history: Smoking status: Patient uses tobacco products, light tobacco smoker. No barriers to communication noted. - Family history: Not pertinent. - : The pt / caregiver states he / she is not on anticoagulants. Home medication list is obtained from the patient. - Exposure Risk Screening:: None identified. 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 1 in. (154.94 cm) (R); 16:40 BP 128 / 68; Pulse 76; Resp 14; Temp 98.3(O); Pulse Ox 99% on R/A; js13 13:40 Body Mass Index 34.96 (83.91 kg, 154.94 cm) lr2 MDM: 14:15 Hcg, Serum Quantitative Ordered. EDMS 14:15 CBC Ordered. EDMS 14:16 Set up pelvic ordered. sd1 14:16 Type & Screen Ordered. EDMS 14:16 UA Ordered. EDMS 14:17 GC & Chlamydia Amplification Ordered. EDMS 14:17 Urine Culture Ordered. EDMS 14:17 Wet Prep Ordered. EDMS 14:21 US 1st trimester Ordered. EDMS 14:49 TRANSVAGINAL US Ordered. EDMS 14:49 DUPLEX SCAN LIMITED (DOPPLER) Ordered. EDMS 15:15 UA Reviewed. sd1 15:15 Type & Screen Reviewed. sd1 15:15 Hcg, Serum Quantitative Reviewed. sd1 15:15 CBC Reviewed. sd1 15:35 Financial registration complete. gb 15:35 [facility] Payment Agreement was scanned into [employer] and attached to record. gb 16:17 GC & Chlamydia Amplification Ordered. EDMS 16:22 Type & Screen Reviewed. sd1 16:22 Wet Prep Reviewed. sd1 16:22 US 1st trimester Reviewed. sd1 06/10 12:13 T-Sheet-- Draft Copy was scanned into [employer] and attached to record. gb Addendum: 06/11/2016 18:14 Addendum: pt c/b to get hcg . told 213...therefore lower and pt aware miscarriage ml however no iup seen on us - therefore need to follow. vijay godoy - she agrees to see pt in close fu and given pt info. amparo naqvi to contact pt - give her contact info. pt absolutely aware she must be seen in fu [facility]. Signatures: Dispatcher [employer] Hayley Goldman MD MD sd1 Ike Westbrook MD MD Karen Noble, Reg Reg Amna Moreno,RN RN js13 Sudha Woods,RN RN [facility] The chart was reviewed and I authenticate all verbal orders and agree with the evaluation and treatment provided.Attachments: 06/09 15:35 [place] [place] Agreement gb 06/10 12:13 T-Sheet-- Draft Copy gb MTDD
--- NOTE | 2016-06-11 18:26 | EDDOCDS ---
Physician Documentation [facility] Name: Doreen Faye Age: 30 yrs Sex: Female : 1985 Arrival Date: 06/09/2016 Time: 13:38 Bed 5 Private MD: NO PRIMARY PHYSICIAN, . Disposition: 06/09/16 16:07 Discharged to Home/Self Care. Impression: Other specified abnormal uterine and vaginal bleeding - threatened Ab. - Condition is Stable. - Discharge Instructions: First Trimester of , Threatened Miscarriage, Threatened Miscarriage, [id number]. - Prescriptions for Vitamin 27- 0.8 mg Oral Tablet - take 1 tablet by ORAL route once daily; 60 tablet. - Work Release Form - 5 day, Medication Reconciliation, Local Pharmacy Hours form. - Follow up: Neal Palma MD; When: Call to arrange an appointment. Follow up: Emergency Department; When: 48 hours recheck quant recheck. - Problem is new. - Symptoms are unchanged. Historical: - Allergies: no known allergies; - Home Meds: 1. none - PMHx: Irregular heart rate; - PSHx: ; - Social history: Smoking status: Patient uses tobacco products, light tobacco smoker. No barriers to communication noted. - Family history: Not pertinent. - : The pt / caregiver states he / she is not on anticoagulants. Home medication list is obtained from the patient. - Exposure Risk Screening:: None identified. 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 1 in. (154.94 cm) (R); 16:40 BP 128 / 68; Pulse 76; Resp 14; Temp 98.3(O); Pulse Ox 99% on R/A; js13 13:40 Body Mass Index 34.96 (83.91 kg, 154.94 cm) lr2 MDM: 14:15 Hcg, Serum Quantitative Ordered. EDMS 14:15 CBC Ordered. EDMS 14:16 Set up pelvic ordered. sd1 14:16 Type & Screen Ordered. EDMS 14:16 UA Ordered. EDMS 14:17 GC & Chlamydia Amplification Ordered. EDMS 14:17 Urine Culture Ordered. EDMS 14:17 Wet Prep Ordered. EDMS 14:21 US 1st trimester Ordered. EDMS 14:49 TRANSVAGINAL US Ordered. EDMS 14:49 DUPLEX SCAN LIMITED (DOPPLER) Ordered. EDMS 15:15 UA Reviewed. sd1 15:15 Type & Screen Reviewed. sd1 15:15 Hcg, Serum Quantitative Reviewed. sd1 15:15 CBC Reviewed. sd1 15:35 Financial registration complete. gb 15:35 [facility] Payment Agreement was scanned into [employer] and attached to record. gb 16:17 GC & Chlamydia Amplification Ordered. EDMS 16:22 Type & Screen Reviewed. sd1 16:22 Wet Prep Reviewed. sd1 16:22 US 1st trimester Reviewed. sd1 06/10 12:13 T-Sheet-- Draft Copy was scanned into [employer] and attached to record. gb Addendum: 06/11/2016 18:14 Addendum: pt c/b to get hcg . told 213...therefore lower and pt aware miscarriage ml however no iup seen on us - therefore need to follow. vijay godoy - she agrees to see pt in close fu and given pt info. amparo naqvi to contact pt - give her contact info. pt absolutely aware she must be seen in fu [facility] [facility]. Signatures: Dispatcher [employer] Hayley Goldman MD MD sd1 Ike Westbrook MD MD Karen Noble, Reg Reg Amna Moreno,RN RN js13 Sudha Woods,RN RN [facility] The chart was reviewed and I authenticate all verbal orders and agree with the evaluation and treatment provided.Attachments: 06/09 15:35 [place] [place] Agreement gb 06/10 12:13 T-Sheet-- Draft Copy gb MTDD
--- NOTE | 2016-06-11 18:26 | EDDOCDS ---
Nurse's Notes [facility] Name: Doreen Faye Age: 30 yrs Sex: Female : 1985 Arrival Date: 06/09/2016 Time: 13:38 Bed 5 Private MD: NO PRIMARY PHYSICIAN, . Diagnosis: Other specified abnormal uterine and vaginal bleeding-threatened Ab Presentation: 06/09 13:44 Presenting complaint: Patient states: sharp pains in stomach started this morning, cjh spotting started this afternoon, just found out I'm , no care yet. Risk factors: the patient reports a small or scant amount of vaginal bleeding. Adult Sepsis Screening: The patient does not have new or worsening altered mentation. Patient's respiratory rate is less than 22. Systolic blood pressure is greater than 100. Patient has a qSOFA score of 0- Negative Sepsis Screen. Suicide/Homicide risk assessment- the patient denies having any suicidal and/or homicidal ideations and does not present with any other emotional, behavioral or mental health complaints. Status: Patient is not a medical services coordinator or dependent. Transition of care: patient was not received from another setting of care. 13:44 Acuity: AURA Level 3 [facility] 13:44 Method Of Arrival: Walkin/Carried/Asstd [facility] Triage Assessment: 13:46 General: Appears in no apparent distress, comfortable, Behavior is appropriate for age, [facility] cooperative. Pain: Location: abdomen Pain currently is 5 out of 10 on a pain scale. HIV screening NA for this visit Offered previously. GI: Reports Pain is 5 out of 10 on a pain scale. 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 none - PMHx: Irregular heart rate; - PSHx: ; - Social history: Smoking status: Patient uses tobacco products, light tobacco smoker. No barriers to communication noted. - Family history: Not pertinent. - : The pt / caregiver states he / she is not on anticoagulants. Home medication list is obtained from the patient. - Exposure Risk Screening:: None identified. Screenin:35 Screening information is obtained from the patient. Fall risk: No risks identified. js13 Assistance ADL's: requires no assistance with activities of daily living. Abuse/DV Screen: The patient / caregiver reports he/she is: not in a situation that causes fear, pain or injury. Nutritional screening: No deficits noted. Advance Directives: There is no active DNR order. home support is adequate. Assessment: 15:35 General: Appears in no apparent distress, Behavior is appropriate for age, cooperative. js13 Pain: Pain currently is 3 out of 10 on a pain scale. Neurological: Level of Consciousness is awake, alert. Respiratory: Airway is patent Respiratory effort is even, unlabored, Respiratory pattern is regular, symmetrical. GI: Abdomen is non- distended Bowel sounds present X 4 quads. Abd is soft and non tender. Derm: Skin is normal. 16:40 Adult Sepsis Screening: The patient does not have new or worsening altered mentation. js13 Patient's respiratory rate is less than 22. Systolic blood pressure is greater than 100. Patient has a qSOFA score of 0- Negative Sepsis Screen. General: Appears in no apparent distress, Behavior is appropriate for age, cooperative. Pain: Pain currently is 2 out of 10 on a pain scale. Neurological: Level of Consciousness is awake, alert. Respiratory: Airway is patent Respiratory effort is even, unlabored, Respiratory pattern is regular, symmetrical. GI: Abdomen is non- distended Bowel sounds present X 4 quads. Abd is soft and non tender. Derm: Skin is normal. Vital Signs: 13:40 BP 135 / 70; Pulse 78; Resp 17; Temp 98.1(T); Pulse Ox 100% ; Weight 83.91 kg (R); lr2 Height 5 ft. 1 in. (154.94 cm) (R); 16:40 BP 128 / 68; Pulse 76; Resp 14; Temp 98.3(O); Pulse Ox 99% on R/A; js13 13:40 Body Mass Index 34.96 (83.91 kg, 154.94 cm) lr2 Vitals: 13:40 Log In Time: June 09, 2016 at 13:38. lr2 ED Course: 13:39 Patient visited by Beatris Esparza. lr2 13:39 NO PRIMARY PHYSICIAN, . is Private Physician. lr2 13:39 Patient moved to Waiting lr2 13:40 Patient moved to Pre RCE lr2 13:45 Triage Initiated [facility] 14:14 Amna Moreno,RN is Primary Nurse. srm 14:14 Hayley Barahona MD is Attending Physician. sd1 14:14 Patient moved to 5 srm 14:17 Patient visited by Hayley Barahona MD. sd1 14:26 Urine Culture Sent. nb2 14:26 UA Sent. nb2 14:28 Patient moved to Ultrasound am17 14:32 CBC Sent. rn1 14:32 Hcg, Serum Quantitative Sent. rn1 14:32 Type & Screen Sent. rn1 14:46 Patient moved to 5 am17 15:25 US 1st trimester Returned. EDMS 15:31 Patient visited by Rudy Spear PCA. jmv 15:33 Patient name changed from Jasma\S\\S\Yunier\S\ to Jasma\S\Denisa\S\Yunier. EDMS 15:35 [facility] Payment Agreement was scanned into [employer] and attached to record. gb 15:35 The patient / caregiver is instructed regarding the plan of care and ED course. js13 15:35 No IV's were initiated during this patient's visit. No procedures done that require js13 assistance. 15:36 Patient visited by Amna Moreno,JOE. js13 16:06 Neal Palma MD is Referral Physician. sd1 16:10 Wet Prep Sent. dem1 16:10 GC & Chlamydia Amplification Sent. dem1 16:51 US 1st trimester Returned. EDMS 02 12:13 T-Sheet-- Draft Copy was scanned into [employer] and attached to record. gb Order Results: Lab Order: Type & Screen; SPEC'M 06/09/16 14:28 Test: BLOOD TYPE; Value: O POS; Status: F Test: AB SCREEN (INDIRECT GRICELDA)GEL; Value: NEGATIVE; Status: F Lab Order: Hcg, Serum Quantitative; SPEC'M 06/09/16 14:28 Test: HCG, SERUM QUANTITATIVE; Value: 393; Units: MIU/ML; Status: F Test Note: ; GESTATIONAL AGE APPROXIMATE HCG RANGE (MIU/ML) 0.2-1 WEEK 5-50 1-2 WEEKS 50-500 2-3 WEEKS 100-5,000 3-4 WEEKS 500-10,000 4-5 WEEKS 1,000-50,000 5-6 WEEKS 10,000-100,000 6-8 WEEKS 15,000-200,000 2-3 MONTHS 10,000-100,000 NON FEMALES LESS THAN 3.0 Patient samples may contain human heterophilic antibodies that could react with immunoassays to give falsely elevated or depressed results. This assay has been designed to minimize interference from heterophilic antibodies. Elevated hCG levels have also been associated with trophoblastic disease and nontrophoblastic neoplasms. The possibility of having these diseases should be considered before a diagnosis of is made. This test is not intended for use as a surrogate marker for aiding in the diagnosis or monitoring the treatment of cancer patients. Siemens Deligic methodology. Lab Order: CBC; SPEC'M 06/09/16 14:28 Test: WHITE BLOOD COUNT; Value: 5.9; Range: 4.0-10.0; Units: K/mm3; Status: F Test: RED BLOOD COUNT; Value: 4.15; Range: 4.00-5.40; Units: M/mm3; Status: F Test: HEMOGLOBIN; Value: 12.8; Range: 12.0-16.0; Units: g/dl; Status: F Test: HEMATOCRIT; Value: 39.6; Range: 36.0-47.0; Units: %; Status: F Test: MEAN CORPUSCULAR VOLUME; Value: 95.5; Range: 80.0-96.0; Units: fl; Status: F Test: MEAN CORPUSCULAR HEMOGLOBIN; Value: 30.8; Range: 27.0-33.0; Units: pg; Status: F Test: MEAN CORPUSCULAR HGB CONC; Value: 32.2; Range: 32.0-36.5; Units: g/dl; Status: F Test: RED CELL DISTRIBUTION WIDTH; Value: 12.8; Range: 11.5-14.5; Units: %; Status: F Test: PLATELET COUNT, AUTOMATED; Value: 199; Range: 150-450; Units: k/mm3; Status: F Lab Order: UA; SPEC'M 06/09/16 14:29 Test: APPEARANCE, URINE; Value: HAZY; Range: CLEAR; Status: F Test: COLOR, URINE; Value: YELLOW; Range: YELLOW; Status: F Test: PH,URINE; Value: 6.0; Range: 5.0-9.0; Units: UNITS; Status: F Test: SPECIFIC GRAVITY URINE AUTO; Value: 1.021; Range: 1.002-1.035; Status: F Test: PROTEIN, URINE AUTO; Value: 1+; Range: NEGATIVE; Abnormal: Above high normal; Units: mg/dL; Status: F Test: GLUCOSE, URINE (UA) AUTO; Value: NEGATIVE; Range: NEGATIVE; Units: mg/dL; Status: F Test: KETONE, URINE AUTO; Value: TRACE; Range: NEGATIVE; Abnormal: Above high normal; Units: mg/dL; Status: F Test: UROBILINOGEN, URINE AUTO; Value: 4.0; Range: 0.0-2.0; Abnormal: Above high normal; Units: mg/dL; Status: F Test: BILIRUBIN, URINE AUTO; Value: NEGATIVE; Range: NEGATIVE; Status: F Test: NITRITE, URINE AUTO; Value: NEGATIVE; Range: NEGATIVE; Status: F Test: LEUKOCYTE ESTERASE, URINE AUTO; Value: NEGATIVE; Range: NEGATIVE; Status: F Test: BLOOD, URINE BLOOD; Value: 3+; Range: NEGATIVE; Abnormal: Above high normal; Status: F Test: WBC, URINE AUTO; Value: 3; Range: 0-3; Units: /HPF; Status: F Test: RBC, URINE AUTO; Value: 152; Range: 0-3; Abnormal: Above high normal; Units: /HPF; Status: F Test: BACTERIA, URINE AUTO; Value: NEGATIVE; Range: NEGATIVE; Status: F Test: SQUAMOUS EPITHELIAL CELL UR AU; Value: 7; Range: 0-6; Units: /HPF; Status: F Test: MUCUS, URINE; Value: SMALL; Range: NEGATIVE; Status: F Test: HYALINE CAST, URINE AUTO; Value: 0; Range: 0-1; Units: /LPF; Status: F Lab Order: Urine Culture; SPEC'M 06/09/16 14:29 Test: URINE CULTURE; Value: <EXTERNAL COMMENT eCWMed> FULL REPORT IN LAB NOTES (eCW and Medent).; Status: F Test: URINE CULTURE; Value: URINE CULTURE RESULT NO GROWTH; Status: F Lab Order: Wet Prep; SPEC'M 06/09/16 16:07 Test: WET PREP; Value: WET PREP RESULT; Status: F Test: WET PREP; Value: MANY RBC; Status: F Test: WET PREP; Value: MANY EPITHELIAL CELLS PRESENT; Status: F Test: WET PREP; Value: FEW SHORT RODS PRESENT; Status: F Lab Order: GC & Chlamydia Amplification; SPEC'M 06/09/16 14:21 Test: CHLAMYDIA DNA AMPLIFICATION; Value: NEGATIVE; Range: NEGATIVE; Status: F Test: GC DNA AMPLIFICATION; Value: NEGATIVE; Range: NEGATIVE; Status: F Radiology Order: US 1st trimester Test: US 1st trimester REASON FOR EXAMINATION: pelvic pain/VB/; FIRST TRIMESTER OBSTETRIC SONOGRAPHY:; ; HISTORY: Cramping and bleeding.; ; FINDINGS: Transabdominal and transvaginal scanning are performed. Uterus has a; subseptate appearance. Its dimensions are 8.5 x 4.9 x 6.3 cm. Endometrium is; somewhat thickened. Endometrial thickness is 1.5 cm. No intrauterine gestation; is seen. No focal uterine mass is seen. No free fluid is noted. Normal ovaries; are seen. Right ovary measures 2.7 x 1.4 x 3.1 cm. Left ovary measures 1.7 x; 1.9 x 3.2 cm. Resistive indices in the ovaries are normal at 0.63 on the right; and 0.45 on the left.; ; IMPRESSION:; ; Nonspecific sonographic findings: No intrauterine gestation seen. Normal; ovaries. No adnexal mass or free fluid. Clinical and possibly sonographic; followup is advised.; ; ; Signed by; Regan Benitez MD 06/09/2016 04:01 P; Outcome: 06/09 16:07 Discharge ordered by Provider. sd1 16:40 Discharge Assessment: Patient awake, alert and oriented x 3. No cognitive and/or js13 functional deficits noted. Patient verbalized understanding of disposition instructions. patient administered narcotics - no. The following High Risk Discharge criteria are identified: None. Discharged to home ambulatory, with significant other. Condition: stable. Discharge instructions given to patient, Instructed on discharge instructions, follow up and referral plans. medication usage, Demonstrated understanding of instructions, medications, Pt was receptive of discharge instructions/ teaching. Property :Personal belongings accompany Pt. 16:42 Ultrasound Study completed. js13 16:48 Prescriptions given X 1, Work note provided to patient. js13 16:48 Patient left the ED. js13 Addendum: 06/11/2016 18:21 Narrative: patient called for results of serum Quant done today as an out-pt = 213 - kcs spoke to Dr. Kang who in turn spoke to Amanda Kahn, Nurse Mid- and patient is to call their office [phone]) in the am to set up an appointment. Signatures: Dispatcher [employer] Hayley Goldman MD MD sd1 Grace Torre, RN RN kcs Mel Villegas, RN RN [facility] Aide, Karen, Reg Reg gb Clint, Philip dem1 Amna MorenoRN RN js13 Sudha WoodsRN RN Re [place] am17 Vidal Jara rn1 Christal Estevez2 Rudy Spear, [employer] LAPIDARY APPRENTICE marilynv Beatris Esparza2 GUZMAND
== END 2016-06-09 16:48 | disposition home or self-care (01) ==
LOC: M ED 13:38
DX: O20.0 Threatened abortion (principal); O99.331 Smoking (tobacco) complicating pregnancy, first trimester; O99.411 Diseases of the circulatory system complicating pregnancy, first trimester; I49.9 Cardiac arrhythmia, unspecified; Z3A.01 Less than 8 weeks gestation of pregnancy

== ENCOUNTER → 2016-06-11 | Outpatient (CLI) | payer OTHER | LOC: M LAB 15:03 | PROVIDERS: ATTEND Emergency Medicine | DX: O46.90 Antepartum hemorrhage, unspecified, unspecified trimester (principal) ==

== ENCOUNTER 2016-06-12 22:15 | Emergency (ER) | payer OTHER ==
[2016-06-13 00:57] LABS: BASO % 0.2 % (0.0-1.0); EOS % 0.7 % (0.0-3.0); LARGE UNSTAINED CELL # 0.2 K/mm3 (0.0-0.4); LARGE UNSTAINED CELL % 3.8 % (0.0-4.0); LYMPH # 2.1 K/mm3 (1.5-4.5); LYMPH % 36.5 % (24.0-44.0); MEAN CORPUSCULAR HEMOGLOBIN 32.2 pg (27.0-33.0); MEAN CORPUSCULAR HGB CONC 34.2 g/dl (32.0-36.5); MEAN CORPUSCULAR VOLUME 94.2 fl (80.0-96.0); MONO # 0.4 K/mm3 (0.0-0.8); MONO % 7.2 % (0.0-5.0); NEUTROPHILS # 2.9 K/mm3 (1.8-7.7); NEUTROPHILS % 51.5 % (36.0-66.0); PLATELET COUNT, AUTOMATED 166 k/mm3 (150-450); RED CELL DISTRIBUTION WIDTH 12.6 % (11.5-14.5); WHITE BLOOD COUNT 5.6 K/mm3 (4.0-10.0)
[2016-06-13 01:08] LABS: ANION GAP 8 MEQ/L (8-16); BLOOD UREA NITROGEN 11 MG/DL (7-18); CALCIUM LEVEL 7.9 MG/DL (8.5-10.1); CARBON DIOXIDE LEVEL 26 MEQ/L (21-32); CHLORIDE LEVEL 111 MEQ/L (98-107); CREATININE FOR GFR 0.74 MG/DL (0.55-1.02); GLOMERULAR FILTRATION RATE > 60.0 (>60); GLUCOSE, FASTING 71 MG/DL (70-105); HCG, SERUM QUANTITATIVE 125 MIU/ML; POTASSIUM SERUM 3.4 MEQ/L (3.5-5.1); SODIUM LEVEL 145 MEQ/L (136-145)
--- NOTE | 2016-06-13 01:30 | REPUSA ---
CLINICAL HISTORY: Miscarriage. TECHNIQUE: Endovaginal ultrasound of the pelvis was performed. FINDINGS: Comparison is made to prior exam performed on 06/09/2016. Thickened endometrium measuring 14.4 mm. The uterus is normal in size measuring 9x4.5x6 cm. The right ovary measures a 2.3x2.4x2.5 cm. The left ovary measures 3.5x2.5x1.8 cm. No free fluid is seen in the pelvis. IMPRESSION: Thickened endometrium. No intrauterine seen.
[2016-06-13] MEDS ORDERED: AMOXICILLIN 500 MG CAP As Ordered ONE (02:39)
--- NOTE | 2016-06-13 02:46 | EDDOCDS ---
Physician Documentation [facility] Name: Doreen Faye Age: 30 yrs Sex: Female : 1985 Arrival Date: 06/12/2016 Time: 22:15 Bed I2 / M2 Private MD: NO PRIMARY PHYSICIAN, . Disposition: 06/13/16 02:29 Discharged to Home/Self Care. Impression: Spontaneous - COMPLETED, Streptococcal pharyngitis - EXPOSURE. - Condition is Stable. - Discharge Instructions: Miscarriage, Salt Water Gargle, Strep Throat. - Prescriptions for Amoxicillin 500 mg Oral Capsule - take 1 capsule by ORAL route every 8 hours for 10 days; 30 tablet. Ibuprofen 600 mg Oral Tablet - take 1 tablet by ORAL route every 6 hours As needed take with food; 30 tablet. - Medication Reconciliation, Local Pharmacy Hours form. - Follow up: [facility]; When: 2 - 3 days; Reason: Recheck today's complaints, Continuance of care. - Problem is new. - Symptoms have improved. Historical: - Allergies: no known allergies; - Home Meds: 1. none - PMHx: Irregular heart rate; - PSHx: Cesearean Section; - Social history: Smoking status: Patient uses tobacco products, current every day smoker. Patient/guardian denies using alcohol, street drugs, No barriers to communication noted, The patient speaks fluent Estonian, Speaks appropriately for age. - Family history: Not pertinent. - : The pt / caregiver states he / she is not on anticoagulants. Home medication list is obtained from the patient. - Exposure Risk Screening:: None identified. 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 4 in. (162.56 cm) (R); Pain 8/10; 06/13 02:41 BP 115 / 67; Pulse 62; Resp 18; Temp 98.4; Pulse Ox 97% ; Pain 0/10; ajs 06/12 22:16 Body Mass Index 30.90 (81.65 kg, 162.56 cm) gr2 MDM: 06/12 23:18 [facility] Payment Agreement was scanned into [employer] and attached to record. [email or web address] 06/13 00:14 IV Saline Lock ordered. ck7 00:14 NS 0.9% 1000 ml IV at bolus once ordered. ck7 00:14 Set up pelvic ordered. ck7 00:14 CBC with Diff Ordered. EDMS 00:14 MED Profile Ordered. EDMS 00:14 Hcg, Serum Quantitative Ordered. EDMS 00:14 Type & Screen Ordered. EDMS 00:15 UA Ordered. EDMS 00:15 Urine Culture Ordered. EDMS 00:15 Wet Prep Ordered. EDMS 00:15 GC & Chlamydia Amplification Ordered. EDMS 00:16 US 1st trimester Ordered. EDMS 00:17 Financial registration complete. hs2 00:22 TRANSVAGINAL US Ordered. EDMS 00:22 DUPLEX SCAN LIMITED (DOPPLER) Ordered. EDMS 02:10 CBC with Diff Reviewed. ck7 02:10 MED Profile Reviewed. ck7 02:10 UA Reviewed. ck7 02:10 Hcg, Serum Quantitative Reviewed. ck7 02:10 Type & Screen Reviewed. ck7 02:10 US 1st trimester Reviewed. ck7 02:32 Amoxicillin 500 mg PO once ordered. ck7 Administered Medications: 00:40 Drug: NS 0.9% 1000 ml [sodium chloride 0.9 % intravenous solution] Route: IV; Rate: cf2 bolus; Site: left antecubital; 02:20 Follow up: IV Status: Completed infusion mlc 02:43 Drug: Amoxicillin 500 mg [amoxicillin 500 mg capsule (1 caps)] Route: PO; mlc 02:45 Follow up: Response: Pt left department before re-evaluation is appropriate mlc Signatures: Dispatcher [employer] EDNJ Lalo Coronado, RPA-C RPA-[id number] Eliana Ortez RN RN ttb Booth, Mandy, RN RN mlc Sue Crane, Reg Reg ks16 Margaret Kinsey, Reg Reg hs2 Marielle Reed RN RN cf2 The chart was reviewed and I authenticate all verbal orders and agree with the evaluation and treatment provided.Attachments: 06/12 23:18 [facility] Payment Agreement [email or web address]
--- NOTE | 2016-06-13 02:46 | EDDOCDS ---
Nurse's Notes [facility] Name: Doreen Faye Age: 30 yrs Sex: Female : 1985 Arrival Date: 06/12/2016 Time: 22:15 Bed I2 / M2 Private MD: NO PRIMARY PHYSICIAN, . Diagnosis: Spontaneous -COMPLETED;Streptococcal pharyngitis-EXPOSURE Presentation: 06/12 22:20 Presenting complaint: Patient states: vag bleeding started Saturday -- seen here and OB ttb -- dx miscarriage with supporting labwork. Pt concerned now d/t excessive bleeding which started today. Dizziness and lower abd pain noted. Risk factors: The patient reports no loss of conciousness prior to arrival. This patient has not had a hysterectomy. This patient has not begun menopause. Adult Sepsis Screening: The patient does not have new or worsening altered mentation. Patient's respiratory rate is less than 22. Systolic blood pressure is greater than 100. Patient has a qSOFA score of 0- Negative Sepsis Screen. Suicide/Homicide risk assessment- the patient denies having any suicidal and/or homicidal ideations and does not present with any other emotional, behavioral or mental health complaints. Status: Patient is not a home service director or dependent. Transition of care: patient was not received from another setting of care. 22:20 Acuity: AURA Level 3 ttb 22:20 Method Of Arrival: Walkin/Carried/Asstd ttb Triage Assessment: 22:22 General: Appears in no apparent distress, well nourished, well groomed, Behavior is ttb appropriate for age, cooperative, pleasant. Pain: Location: lower abd Pain currently is 6 out of 10 on a pain scale. HIV screening NA for this visit Offered previously. Neurological: Level of Consciousness is awake, alert. Neurological: Reports lightheadedness. Cardiovascular: Chest pain is denied. Respiratory: Airway is patent. GI: Reports lower abdominal pain, nausea, vomiting. : Reports vaginal bleeding that is bright red moderate flow states 1 pad q2 hrs. Derm: Skin is normal. 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 none - PMHx: Irregular heart rate; - PSHx: Cesearean Section; - Social history: Smoking status: Patient uses tobacco products, current every day smoker. Patient/guardian denies using alcohol, street drugs, No barriers to communication noted, The patient speaks fluent Portuguese, Speaks appropriately for age. - Family history: Not pertinent. - : The pt / caregiver states he / she is not on anticoagulants. Home medication list is obtained from the patient. - Exposure Risk Screening:: None identified. Screenin/08 00:40 Screening information is obtained from the patient. Fall risk: No risks identified. cf2 Assistance ADL's: requires no assistance with activities of daily living. Abuse/DV Screen: The patient / caregiver reports he/she is: not in a situation that causes fear, pain or injury. Nutritional screening: No deficits noted. Advance Directives: Further advance directive information is declined. home support is adequate. Assessment: 00:40 General: Appears in no apparent distress, comfortable, Behavior is appropriate for age, cf2 cooperative. Pain: Denies pain. Neurological: No deficits noted. EENT: No deficits noted. Cardiovascular: No deficits noted. Respiratory: No deficits noted. GI: No deficits noted. : Reports cramping pain vaginal bleeding that is. : No deficits noted. Derm: No deficits noted. Musculoskeletal: No deficits noted. Injury Description: No known injury. 02:20 General: Appears in no apparent distress, comfortable, Behavior is cooperative. mlc General: SO at bedside. Pain: Location: abdomen Pain currently is 5 out of 10 on a pain scale. Neurological: Level of Consciousness is awake, alert, Oriented to person, place, time. Respiratory: Airway is patent Respiratory effort is even, unlabored, Respiratory pattern is regular. Derm: Skin is normal. 02:44 General: Appears in no apparent distress, comfortable, Behavior is cooperative. mlc Neurological: Level of Consciousness is awake, alert, Oriented to person, place, time. Respiratory: Airway is patent Respiratory effort is even, unlabored, Respiratory pattern is regular. Vital Signs: 06/12 22:16 BP 131 / 70; Pulse 87; Resp 18 S; Temp 98.8(O); Pulse Ox 98% on R/A; Weight 81.65 kg gr2 (R); Height 5 ft. 4 in. (162.56 cm) (R); Pain 8/10; 06/13 02:41 BP 115 / 67; Pulse 62; Resp 18; Temp 98.4; Pulse Ox 97% ; Pain 0/10; ajs 06/12 22:16 Body Mass Index 30.90 (81.65 kg, 162.56 cm) gr2 Vitals: 02 22:16 Log In Time: June 12, 2016 at 22:16. gr2 ED Course: 22:16 Patient visited by Roger Bey. gr2 22:16 NO PRIMARY PHYSICIAN, . is Private Physician. gr2 22:16 Patient moved to Waiting gr2 22:19 Patient visited by Roger Bey. gr2 22:19 Patient moved to Pre RCE gr2 22:22 Triage Initiated ttb 23:18 [facility] Payment Agreement was scanned into [employer] and attached to record. ks16 23:33 Patient moved to Triage 2 dsf 0208 00:04 Lalo Coronado RPA-C is PHCP. ck7 00:04 Angel Capellan MD is Attending Physician. ck7 00:04 Patient visited by Lalo Coronado RPA-C. ck7 00:14 Patient moved to I2 / M2 dsf 00:17 Marielle Reed,JOE is Primary Nurse. cf2 00:17 Patient visited by Marielle Reed,JOE. cf2 00:19 Patient visited by Marielle Reed,JOE. cf2 00:21 Patient moved to Ultrasound dmg 00:40 The patient / caregiver is instructed regarding the plan of care and ED course. Patient mali2 has correct armband on for positive identification. Placed in gown. Bed in low position. Call light in reach. Side rails up X 1. Side rails up X2. Property :Personal belongings accompany Pt. Door closed. Noise minimized. Visitors limited. Lights dimmed. Moved to private room. Verbal reassurance given. Warm blanket given. Pillow given. Head of bed elevated. 00:40 Inserted saline lock: 20 gauge in left antecubital area and blood collected. The cf2 patient tolerated the procedure well. 00:43 Patient moved to [facility]. cf2 00:43 Assist provider with pelvic exam:. cf2 00:47 Patient visited by Marielle Reed,JOE. cf2 00:58 Patient moved to I2 / M2 dmg 01:01 Urine Culture Sent. ajs 01:01 UA Sent. ajs 01:18 Patient visited by Lalo Coronado RPA-C. ck7 01:58 US 1st trimester Returned. EDMS 02:10 Patient visited by Lalo Coronado RPA-C. ck7 02:21 Patient visited by Gabriela Hart RN. mlc 02:28 Maximus Allen is Referral Physician. ck7 02:41 Patient visited by Elvira Lee. ajs 02:44 Discontinued IV lock intact, bleeding controlled, pressure dressing applied, No mlc redness/swelling at site. Administered Medications: 00:40 Drug: NS 0.9% 1000 ml [sodium chloride 0.9 % intravenous solution] Route: IV; Rate: cf2 bolus; Site: left antecubital; 02:20 Follow up: IV Status: Completed infusion mlc 02:43 Drug: Amoxicillin 500 mg [amoxicillin 500 mg capsule (1 caps)] Route: PO; mlc 02:45 Follow up: Response: Pt left department before re-evaluation is appropriate mlc Order Results: Lab Order: CBC with Diff; SPEC'M 06/13/16 00:32 Test: WHITE BLOOD COUNT; Value: 5.6; Range: 4.0-10.0; Units: K/mm3; Status: F Test: RED BLOOD COUNT; Value: 4.23; Range: 4.00-5.40; Units: M/mm3; Status: F Test: HEMOGLOBIN; Value: 13.6; Range: 12.0-16.0; Units: g/dl; Status: F Test: HEMATOCRIT; Value: 39.8; Range: 36.0-47.0; Units: %; Status: F Test: MEAN CORPUSCULAR VOLUME; Value: 94.2; Range: 80.0-96.0; Units: fl; Status: F Test: MEAN CORPUSCULAR HEMOGLOBIN; Value: 32.2; Range: 27.0-33.0; Units: pg; Status: F Test: MEAN CORPUSCULAR HGB CONC; Value: 34.2; Range: 32.0-36.5; Units: g/dl; Status: F Test: RED CELL DISTRIBUTION WIDTH; Value: 12.6; Range: 11.5-14.5; Units: %; Status: F Test: PLATELET COUNT, AUTOMATED; Value: 166; Range: 150-450; Units: k/mm3; Status: F Test: NEUTROPHILS %; Value: 51.5; Range: 36.0-66.0; Units: %; Status: F Test: LYMPH %; Value: 36.5; Range: 24.0-44.0; Units: %; Status: F Test: MONO %; Value: 7.2; Range: 0.0-5.0; Abnormal: Above high normal; Units: %; Status: F Test: EOS %; Value: 0.7; Range: 0.0-3.0; Units: %; Status: F Test: BASO %; Value: 0.2; Range: 0.0-1.0; Units: %; Status: F Test: LARGE UNSTAINED CELL %; Value: 3.8; Range: 0.0-4.0; Units: %; Status: F Test: NEUTROPHILS #; Value: 2.9; Range: 1.8-7.7; Units: K/mm3; Status: F Test: LYMPH #; Value: 2.1; Range: 1.5-4.5; Units: K/mm3; Status: F Test: MONO #; Value: 0.4; Range: 0.0-0.8; Units: K/mm3; Status: F Test: EOS #; Value: 0.0; Range: 0.0-0.50; Units: K/mm3; Status: F Test: BASO #; Value: 0.0; Range: 0.0-0.2; Units: K/mm3; Status: F Test: LARGE UNSTAINED CELL #; Value: 0.2; Range: 0.0-0.4; Units: K/mm3; Status: F Lab Order: MED Profile; SPEC'M 06/13/16 00:32 Test: GLUCOSE, FASTING; Value: 71; Range: 70-105; Units: MG/DL; Status: F Test: BLOOD UREA NITROGEN; Value: 11; Range: 7-18; Units: MG/DL; Status: F Test: CREATININE FOR GFR; Value: 0.74; Range: 0.55-1.02; Units: MG/DL; Status: F Test: GLOMERULAR FILTRATION RATE; Value: > 60.0; Range: >60; Status: F Test: SODIUM LEVEL; Value: 145; Range: 136-145; Units: MEQ/L; Status: F Test: POTASSIUM SERUM; Value: 3.4; Range: 3.5-5.1; Abnormal: Below low normal; Units: MEQ/L; Status: F Test: CHLORIDE LEVEL; Value: 111; Range: 98-107; Abnormal: Above high normal; Units: MEQ/L; Status: F Test: CARBON DIOXIDE LEVEL; Value: 26; Range: 21-32; Units: MEQ/L; Status: F Test: ANION GAP; Value: 8; Range: 8-16; Units: MEQ/L; Status: F Test: CALCIUM LEVEL; Value: 7.9; Range: 8.5-10.1; Abnormal: Below low normal; Units: MG/DL; Status: F Test Note: ; Units are mL/min/1.73 m2 Chronic Kidney Disease Staging per NKF: Stage I & II GFR >=60 Normal to Mildly Decreased Stage III GFR 30-59 Moderately Decreased Stage IV GFR 15-29 Severely Decreased Stage V GFR <15 Very Little GFR Left ESRD GFR <15 on [employer] Lab Order: Hcg, Serum Quantitative; SPEC'M 06/13/16 00:32 Test: HCG, SERUM QUANTITATIVE; Value: 125; Units: MIU/ML; Status: F Test Note: ; GESTATIONAL AGE APPROXIMATE HCG RANGE (MIU/ML) 0.2-1 WEEK 5-50 1-2 WEEKS 50-500 2-3 WEEKS 100-5,000 3-4 WEEKS 500-10,000 4-5 WEEKS 1,000-50,000 5-6 WEEKS 10,000-100,000 6-8 WEEKS 15,000-200,000 2-3 MONTHS 10,000-100,000 NON FEMALES LESS THAN 3.0 Patient samples may contain human heterophilic antibodies that could react with immunoassays to give falsely elevated or depressed results. This assay has been designed to minimize interference from heterophilic antibodies. Elevated hCG levels have also been associated with trophoblastic disease and nontrophoblastic neoplasms. The possibility of having these diseases should be considered before a diagnosis of is made. This test is not intended for use as a surrogate marker for aiding in the diagnosis or monitoring the treatment of cancer patients. [employer] Townsend methodology. Lab Order: Type & Screen; SPEC'M 06/13/16 00:32 Test: BLOOD TYPE; Value: O POS; Status: F Test: AB SCREEN (INDIRECT GRICELDA)VIS; Value: NEGATIVE; Status: F Lab Order: UA; SPEC'M 06/13/16 00:32 Test: APPEARANCE, URINE; Value: HAZY; Range: CLEAR; Status: F Test: COLOR, URINE; Value: TREVOR; Range: YELLOW; Status: F Test: PH,URINE; Value: 5.0; Range: 5.0-9.0; Units: UNITS; Status: F Test: SPECIFIC GRAVITY URINE AUTO; Value: 1.045; Range: 1.002-1.035; Status: F Test: PROTEIN, URINE AUTO; Value: 2+; Range: NEGATIVE; Abnormal: Above high normal; Units: mg/dL; Status: F Test: GLUCOSE, URINE (UA) AUTO; Value: NEGATIVE; Range: NEGATIVE; Units: mg/dL; Status: F Test: KETONE, URINE AUTO; Value: TRACE; Range: NEGATIVE; Abnormal: Above high normal; Units: mg/dL; Status: F Test: UROBILINOGEN, URINE AUTO; Value: 0.2; Range: 0.0-2.0; Units: mg/dL; Status: F Test: BILIRUBIN, URINE AUTO; Value: 1+; Range: NEGATIVE; Abnormal: Above high normal; Status: F Test: NITRITE, URINE AUTO; Value: NEGATIVE; Range: NEGATIVE; Status: F Test: LEUKOCYTE ESTERASE, URINE AUTO; Value: NEGATIVE; Range: NEGATIVE; Status: F Test: BLOOD, URINE BLOOD; Value: 3+; Range: NEGATIVE; Abnormal: Above high normal; Status: F Test: WBC, URINE AUTO; Value: 6; Range: 0-3; Abnormal: Above high normal; Units: /HPF; Status: F Test: RBC, URINE AUTO; Value: 1; Range: 0-3; Units: /HPF; Status: F Test: BACTERIA, URINE AUTO; Value: NEGATIVE; Range: NEGATIVE; Status: F Test: SQUAMOUS EPITHELIAL CELL UR AU; Value: 23; Range: 0-6; Units: /HPF; Status: F Test: MUCUS, URINE; Value: LARGE; Range: NEGATIVE; Status: F Test: HYALINE CAST, URINE AUTO; Value: 0; Range: 0-1; Units: /LPF; Status: F Radiology Order: US 1st trimester Test: US 1st trimester REASON FOR EXAMINATION: MISCARRIAGE, R/O RPOC; ; CLINICAL HISTORY: Miscarriage.; TECHNIQUE: Endovaginal ultrasound of the pelvis was performed.; FINDINGS:; Comparison is made to prior exam performed on 06/09/2016.; Thickened endometrium measuring 14.4 mm.; The uterus is normal in size measuring 9x4.5x6 cm.; The right ovary measures a 2.3x2.4x2.5 cm.; The left ovary measures 3.5x2.5x1.8 cm.; No free fluid is seen in the pelvis.; IMPRESSION:; Thickened endometrium.; No intrauterine seen.; ; Outcome: 00:43 Ultrasound Study completed. cf2 02:29 Discharge ordered by Provider. ck7 02:44 Discharge Assessment: Patient awake, alert and oriented x 3. No cognitive and/or mlc functional deficits noted. Patient verbalized understanding of disposition instructions. patient administered narcotics - no. The following High Risk Discharge criteria are identified: None. Discharged to home ambulatory. Condition: good Condition: stable. Discharge instructions given to patient, Instructed on discharge instructions, follow up and referral plans. medication usage, Demonstrated understanding of instructions, medications, Pt was receptive of discharge instructions/ teaching. Prescriptions given X 2. Property sent home with patient. 02:45 Patient left the ED. mlc Signatures: Dispatcher [employer] Tere Salcedo Desiree, RN RN dsf Slate, Amanda ajs Kwaczala, Christopher, LILIYA-C RPA-Cck7 Eliana Ortez RN RN ttb Roger Bey gr2 Gabriela Hart RN RN mlc Sorenson, Kimberly, Reg Reg ks16 Marielle Reed,RN RN cf2 MTDD
--- NOTE | 2016-06-15 03:45 | EDDOCDS ---
Physician Documentation [facility] Name: Doreen Faye Age: 30 yrs Sex: Female : 1985 Arrival Date: 06/12/2016 Time: 22:15 Bed I2 / M2 Private MD: NO PRIMARY PHYSICIAN, . Disposition: 06/13/16 02:29 Discharged to Home/Self Care. Impression: Spontaneous - COMPLETED, Streptococcal pharyngitis - EXPOSURE. - Condition is Stable. - Discharge Instructions: Miscarriage, Salt Water Gargle, Strep Throat. - Prescriptions for Amoxicillin 500 mg Oral Capsule - take 1 capsule by ORAL route every 8 hours for 10 days; 30 tablet. Ibuprofen 600 mg Oral Tablet - take 1 tablet by ORAL route every 6 hours As needed take with food; 30 tablet. - Medication Reconciliation, Local Pharmacy Hours form. - Follow up: Maximus Allen; When: 2 - 3 days; Reason: Recheck today's complaints, Continuance of care. - Problem is new. - Symptoms have improved. Historical: - Allergies: no known allergies; - Home Meds: 1. none - PMHx: Irregular heart rate; - PSHx: Cesearean Section; - Social history: Smoking status: Patient uses tobacco products, current every day smoker. Patient/guardian denies using alcohol, street drugs, No barriers to communication noted, The patient speaks fluent Grenadian, Speaks appropriately for age. - Family history: Not pertinent. - : The pt / caregiver states he / she is not on anticoagulants. Home medication list is obtained from the patient. - Exposure Risk Screening:: None identified. 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 4 in. (162.56 cm) (R); Pain 8/10; 06/13 02:41 BP 115 / 67; Pulse 62; Resp 18; Temp 98.4; Pulse Ox 97% ; Pain 0/10; ajs 06/12 22:16 Body Mass Index 30.90 (81.65 kg, 162.56 cm) gr2 MDM: 06/12 23:18 [facility] Payment Agreement was scanned into [employer] and attached to record. [email or web address] 06/13 00:14 IV Saline Lock ordered. ck7 00:14 NS 0.9% 1000 ml IV at bolus once ordered. ck7 00:14 Set up pelvic ordered. ck7 00:14 CBC with Diff Ordered. EDMS 00:14 MED Profile Ordered. EDMS 00:14 Hcg, Serum Quantitative Ordered. EDMS 00:14 Type & Screen Ordered. EDMS 00:15 UA Ordered. EDMS 00:15 Urine Culture Ordered. EDMS 00:15 Wet Prep Ordered. EDMS 00:15 GC & Chlamydia Amplification Ordered. EDMS 00:16 US 1st trimester Ordered. EDMS 00:17 Financial registration complete. hs2 00:22 TRANSVAGINAL US Ordered. EDMS 00:22 DUPLEX SCAN LIMITED (DOPPLER) Ordered. EDMS 02:10 CBC with Diff Reviewed. ck7 02:10 MED Profile Reviewed. ck7 02:10 UA Reviewed. ck7 02:10 Hcg, Serum Quantitative Reviewed. ck7 02:10 Type & Screen Reviewed. ck7 02:10 US 1st trimester Reviewed. ck7 02:32 Amoxicillin 500 mg PO once ordered. ck7 12:21 T-Sheet-- Draft Copy was scanned into [employer] and attached to record. gb Administered Medications: 00:40 Drug: NS 0.9% 1000 ml [sodium chloride 0.9 % intravenous solution] Route: IV; Rate: cf2 bolus; Site: left antecubital; 02:20 Follow up: IV Status: Completed infusion mlc 02:43 Drug: Amoxicillin 500 mg [amoxicillin 500 mg capsule (1 caps)] Route: PO; mlc 02:45 Follow up: Response: Pt left department before re-evaluation is appropriate [facility] Signatures: Dispatcher [employer] EDMS Karen Noble, Reg Reg gb Lalo Coronado, RPA-C RPA-Cck7 Eliana Ortez RN RN ttb Gabriela Hart RN RN mlc Sorenson, Kimberly, Reg Reg ks16 Margaret Kinsey, Reg Reg hs2 Marielle Reed RN RN cf2 The chart was reviewed and I authenticate all verbal orders and agree with the evaluation and treatment provided.Attachments: 06/12 23:18 [facility] Payment Agreement [email or web address] 06/13 12:21 T-Sheet-- Draft Copy gb Chart Complete MTDD
--- NOTE | 2016-06-15 03:45 | EDDOCDS ---
Physician Documentation [facility] Name: Doreen Faye Age: 30 yrs Sex: Female : 1985 Arrival Date: 06/12/2016 Time: 22:15 Bed I2 / M2 Private MD: NO PRIMARY PHYSICIAN, . Disposition: 06/13/16 02:29 Discharged to Home/Self Care. Impression: Spontaneous - COMPLETED, Streptococcal pharyngitis - EXPOSURE. - Condition is Stable. - Discharge Instructions: Miscarriage, Salt Water Gargle, Strep Throat. - Prescriptions for Amoxicillin 500 mg Oral Capsule - take 1 capsule by ORAL route every 8 hours for 10 days; 30 tablet. Ibuprofen 600 mg Oral Tablet - take 1 tablet by ORAL route every 6 hours As needed take with food; 30 tablet. - Medication Reconciliation, Local Pharmacy Hours form. - Follow up: Maximus Allen; When: 2 - 3 days; Reason: Recheck today's complaints, Continuance of care. - Problem is new. - Symptoms have improved. Historical: - Allergies: no known allergies; - Home Meds: 1. none - PMHx: Irregular heart rate; - PSHx: Cesearean Section; - Social history: Smoking status: Patient uses tobacco products, current every day smoker. Patient/guardian denies using alcohol, street drugs, No barriers to communication noted, The patient speaks fluent Chadian, Speaks appropriately for age. - Family history: Not pertinent. - : The pt / caregiver states he / she is not on anticoagulants. Home medication list is obtained from the patient. - Exposure Risk Screening:: None identified. 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 4 in. (162.56 cm) (R); Pain 8/10; 06/13 02:41 BP 115 / 67; Pulse 62; Resp 18; Temp 98.4; Pulse Ox 97% ; Pain 0/10; ajs 06/12 22:16 Body Mass Index 30.90 (81.65 kg, 162.56 cm) gr2 MDM: 06/12 23:18 [facility] Payment Agreement was scanned into [employer] and attached to record. [email or web address] 06/13 00:14 IV Saline Lock ordered. ck7 00:14 NS 0.9% 1000 ml IV at bolus once ordered. ck7 00:14 Set up pelvic ordered. ck7 00:14 CBC with Diff Ordered. EDMS 00:14 MED Profile Ordered. EDMS 00:14 Hcg, Serum Quantitative Ordered. EDMS 00:14 Type & Screen Ordered. EDMS 00:15 UA Ordered. EDMS 00:15 Urine Culture Ordered. EDMS 00:15 Wet Prep Ordered. EDMS 00:15 GC & Chlamydia Amplification Ordered. EDMS 00:16 US 1st trimester Ordered. EDMS 00:17 Financial registration complete. hs2 00:22 TRANSVAGINAL US Ordered. EDMS 00:22 DUPLEX SCAN LIMITED (DOPPLER) Ordered. EDMS 02:10 CBC with Diff Reviewed. ck7 02:10 MED Profile Reviewed. ck7 02:10 UA Reviewed. ck7 02:10 Hcg, Serum Quantitative Reviewed. ck7 02:10 Type & Screen Reviewed. ck7 02:10 US 1st trimester Reviewed. ck7 02:32 Amoxicillin 500 mg PO once ordered. ck7 12:21 T-Sheet-- Draft Copy was scanned into [employer] and attached to record. gb Administered Medications: 00:40 Drug: NS 0.9% 1000 ml [sodium chloride 0.9 % intravenous solution] Route: IV; Rate: cf2 bolus; Site: left antecubital; 02:20 Follow up: IV Status: Completed infusion mlc 02:43 Drug: Amoxicillin 500 mg [amoxicillin 500 mg capsule (1 caps)] Route: PO; mlc 02:45 Follow up: Response: Pt left department before re-evaluation is appropriate [facility] [place] Signatures: Dispatcher [employer] EDMS Karen Noble, Reg Reg gb Lalo Coronado, RPA-C RPA-Cck7 Eliana Ortez RN RN ttb Gabriela Hart RN RN mlc Sorenson, Kimberly, Reg Reg ks16 Margaret Kinsey, Reg Reg hs2 Marielle Reed RN RN cf2 The chart was reviewed and I authenticate all verbal orders and agree with the evaluation and treatment provided.Attachments: 06/12 23:18 [facility] Payment Agreement [email or web address] 06/13 12:21 T-Sheet-- Draft Copy gb Chart Complete MTDD
--- NOTE | 2016-06-15 03:46 | EDDOCDS ---
Nurse's Notes [facility] Name: Doreen Faye Age: 30 yrs Sex: Female : 1985 Arrival Date: 06/12/2016 Time: 22:15 Bed I2 / M2 Private MD: NO PRIMARY PHYSICIAN, . Diagnosis: Spontaneous -COMPLETED;Streptococcal pharyngitis-EXPOSURE Presentation: 06/12 22:20 Presenting complaint: Patient states: vag bleeding started Saturday -- seen here and OB ttb -- dx miscarriage with supporting labwork. Pt concerned now d/t excessive bleeding which started today. Dizziness and lower abd pain noted. Risk factors: The patient reports no loss of conciousness prior to arrival. This patient has not had a hysterectomy. This patient has not begun menopause. Adult Sepsis Screening: The patient does not have new or worsening altered mentation. Patient's respiratory rate is less than 22. Systolic blood pressure is greater than 100. Patient has a qSOFA score of 0- Negative Sepsis Screen. Suicide/Homicide risk assessment- the patient denies having any suicidal and/or homicidal ideations and does not present with any other emotional, behavioral or mental health complaints. Status: Patient is not a career services director or dependent. Transition of care: patient was not received from another setting of care. 22:20 Acuity: AURA Level 3 ttb 22:20 Method Of Arrival: Walkin/Carried/Asstd ttb Triage Assessment: 22:22 General: Appears in no apparent distress, well nourished, well groomed, Behavior is ttb appropriate for age, cooperative, pleasant. Pain: Location: lower abd Pain currently is 6 out of 10 on a pain scale. HIV screening NA for this visit Offered previously. Neurological: Level of Consciousness is awake, alert. Neurological: Reports lightheadedness. Cardiovascular: Chest pain is denied. Respiratory: Airway is patent. GI: Reports lower abdominal pain, nausea, vomiting. : Reports vaginal bleeding that is bright red moderate flow states 1 pad q2 hrs. Derm: Skin is normal. OPERATIONS INTELLIGENCE: 22:22 LMP 05/06/2016 ttb Historical: - Allergies: no known allergies; - Home Meds: 1. none - PMHx: Irregular heart rate; - PSHx: Cesearean Section; - Social history: Smoking status: Patient uses tobacco products, current every day smoker. Patient/guardian denies using alcohol, street drugs, No barriers to communication noted, The patient speaks fluent Ukrainian, Speaks appropriately for age. - Family history: Not pertinent. - : The pt / caregiver states he / she is not on anticoagulants. Home medication list is obtained from the patient. - Exposure Risk Screening:: None identified. Screenin/08 00:40 Screening information is obtained from the patient. Fall risk: No risks identified. cf2 Assistance ADL's: requires no assistance with activities of daily living. Abuse/DV Screen: The patient / caregiver reports he/she is: not in a situation that causes fear, pain or injury. Nutritional screening: No deficits noted. Advance Directives: Further advance directive information is declined. home support is adequate. Assessment: 00:40 General: Appears in no apparent distress, comfortable, Behavior is appropriate for age, cf2 cooperative. Pain: Denies pain. Neurological: No deficits noted. EENT: No deficits noted. Cardiovascular: No deficits noted. Respiratory: No deficits noted. GI: No deficits noted. : Reports cramping pain vaginal bleeding that is. : No deficits noted. Derm: No deficits noted. Musculoskeletal: No deficits noted. Injury Description: No known injury. 02:20 General: Appears in no apparent distress, comfortable, Behavior is cooperative. mlc General: SO at bedside. Pain: Location: abdomen Pain currently is 5 out of 10 on a pain scale. Neurological: Level of Consciousness is awake, alert, Oriented to person, place, time. Respiratory: Airway is patent Respiratory effort is even, unlabored, Respiratory pattern is regular. Derm: Skin is normal. 02:44 General: Appears in no apparent distress, comfortable, Behavior is cooperative. mlc Neurological: Level of Consciousness is awake, alert, Oriented to person, place, time. Respiratory: Airway is patent Respiratory effort is even, unlabored, Respiratory pattern is regular. Vital Signs: 06/12 22:16 BP 131 / 70; Pulse 87; Resp 18 S; Temp 98.8(O); Pulse Ox 98% on R/A; Weight 81.65 kg gr2 (R); Height 5 ft. 4 in. (162.56 cm) (R); Pain 8/10; 06/13 02:41 BP 115 / 67; Pulse 62; Resp 18; Temp 98.4; Pulse Ox 97% ; Pain 0/10; ajs 06/12 22:16 Body Mass Index 30.90 (81.65 kg, 162.56 cm) gr2 Vitals: 02 22:16 Log In Time: June 12, 2016 at 22:16. gr2 ED Course: 22:16 Patient visited by Roger Bey. gr2 22:16 NO PRIMARY PHYSICIAN, . is Private Physician. gr2 22:16 Patient moved to Waiting gr2 22:19 Patient visited by Roger Bey. gr2 22:19 Patient moved to Pre RCE gr2 22:22 Triage Initiated ttb 23:18 [facility] Payment Agreement was scanned into BOKU and attached to record. ks16 23:33 Patient moved to Triage 2 dsf 0208 00:04 Lalo Coronado RPA-C is PHCP. ck7 00:04 Angel Capellan MD is Attending Physician. ck7 00:04 Patient visited by Lalo Coronado RPA-C. ck7 00:14 Patient moved to I2 / M2 dsf 00:17 Marielle Reed,JOE is Primary Nurse. cf2 00:17 Patient visited by Marielle Reed,JOE. cf2 00:19 Patient visited by Marielle Reed,JOE. cf2 00:21 Patient moved to Ultrasound dmg 00:40 The patient / caregiver is instructed regarding the plan of care and ED course. Patient mali2 has correct armband on for positive identification. Placed in gown. Bed in low position. Call light in reach. Side rails up X 1. Side rails up X2. Property :Personal belongings accompany Pt. Door closed. Noise minimized. Visitors limited. Lights dimmed. Moved to private room. Verbal reassurance given. Warm blanket given. Pillow given. Head of bed elevated. 00:40 Inserted saline lock: 20 gauge in left antecubital area and blood collected. The cf2 patient tolerated the procedure well. 00:43 Patient moved to [facility]. cf2 00:43 Assist provider with pelvic exam:. cf2 00:47 Patient visited by Marielle Reed,JOE. cf2 00:58 Patient moved to I2 / M2 dmg 01:01 Urine Culture Sent. ajs 01:01 UA Sent. ajs 01:18 Patient visited by Lalo Coronado RPA-C. ck7 01:58 US 1st trimester Returned. EDMS 02:10 Patient visited by Lalo Coronado RPA-C. ck7 02:21 Patient visited by Gabriela Hart RN. mlc 02:28 Maximus Allen is Referral Physician. ck7 02:41 Patient visited by Elvira Lee. ajs 02:44 Discontinued IV lock intact, bleeding controlled, pressure dressing applied, No mlc redness/swelling at site. 12:21 T-Sheet-- Draft Copy was scanned into BOKU and attached to record. gb Administered Medications: 00:40 Drug: NS 0.9% 1000 ml [sodium chloride 0.9 % intravenous solution] Route: IV; Rate: cf2 bolus; Site: left antecubital; 02:20 Follow up: IV Status: Completed infusion mlc 02:43 Drug: Amoxicillin 500 mg [amoxicillin 500 mg capsule (1 caps)] Route: PO; mlc 02:45 Follow up: Response: Pt left department before re-evaluation is appropriate mlc Order Results: Lab Order: CBC with Diff; SPEC'M 06/13/16 00:32 Test: WHITE BLOOD COUNT; Value: 5.6; Range: 4.0-10.0; Units: K/mm3; Status: F Test: RED BLOOD COUNT; Value: 4.23; Range: 4.00-5.40; Units: M/mm3; Status: F Test: HEMOGLOBIN; Value: 13.6; Range: 12.0-16.0; Units: g/dl; Status: F Test: HEMATOCRIT; Value: 39.8; Range: 36.0-47.0; Units: %; Status: F Test: MEAN CORPUSCULAR VOLUME; Value: 94.2; Range: 80.0-96.0; Units: fl; Status: F Test: MEAN CORPUSCULAR HEMOGLOBIN; Value: 32.2; Range: 27.0-33.0; Units: pg; Status: F Test: MEAN CORPUSCULAR HGB CONC; Value: 34.2; Range: 32.0-36.5; Units: g/dl; Status: F Test: RED CELL DISTRIBUTION WIDTH; Value: 12.6; Range: 11.5-14.5; Units: %; Status: F Test: PLATELET COUNT, AUTOMATED; Value: 166; Range: 150-450; Units: k/mm3; Status: F Test: NEUTROPHILS %; Value: 51.5; Range: 36.0-66.0; Units: %; Status: F Test: LYMPH %; Value: 36.5; Range: 24.0-44.0; Units: %; Status: F Test: MONO %; Value: 7.2; Range: 0.0-5.0; Abnormal: Above high normal; Units: %; Status: F Test: EOS %; Value: 0.7; Range: 0.0-3.0; Units: %; Status: F Test: BASO %; Value: 0.2; Range: 0.0-1.0; Units: %; Status: F Test: LARGE UNSTAINED CELL %; Value: 3.8; Range: 0.0-4.0; Units: %; Status: F Test: NEUTROPHILS #; Value: 2.9; Range: 1.8-7.7; Units: K/mm3; Status: F Test: LYMPH #; Value: 2.1; Range: 1.5-4.5; Units: K/mm3; Status: F Test: MONO #; Value: 0.4; Range: 0.0-0.8; Units: K/mm3; Status: F Test: EOS #; Value: 0.0; Range: 0.0-0.50; Units: K/mm3; Status: F Test: BASO #; Value: 0.0; Range: 0.0-0.2; Units: K/mm3; Status: F Test: LARGE UNSTAINED CELL #; Value: 0.2; Range: 0.0-0.4; Units: K/mm3; Status: F Lab Order: MED Profile; [facility] 06/13/16 00:32 Test: GLUCOSE, FASTING; Value: 71; Range: 70-105; Units: MG/DL; Status: F Test: BLOOD UREA NITROGEN; Value: 11; Range: 7-18; Units: MG/DL; Status: F Test: CREATININE FOR GFR; Value: 0.74; Range: 0.55-1.02; Units: MG/DL; Status: F Test: GLOMERULAR FILTRATION RATE; Value: > 60.0; Range: >60; Status: F Test: SODIUM LEVEL; Value: 145; Range: 136-145; Units: MEQ/L; Status: F Test: POTASSIUM SERUM; Value: 3.4; Range: 3.5-5.1; Abnormal: Below low normal; Units: MEQ/L; Status: F Test: CHLORIDE LEVEL; Value: 111; Range: 98-107; Abnormal: Above high normal; Units: MEQ/L; Status: F Test: CARBON DIOXIDE LEVEL; Value: 26; Range: 21-32; Units: MEQ/L; Status: F Test: ANION GAP; Value: 8; Range: 8-16; Units: MEQ/L; Status: F Test: CALCIUM LEVEL; Value: 7.9; Range: 8.5-10.1; Abnormal: Below low normal; Units: MG/DL; Status: F Test Note: ; Units are mL/min/1.73 m2 Chronic Kidney Disease Staging per NKF: Stage I & II GFR >=60 Normal to Mildly Decreased Stage III GFR 30-59 Moderately Decreased Stage IV GFR 15-29 Severely Decreased Stage V GFR <15 Very Little GFR Left ESRD GFR <15 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 This assay has been designed to minimize interference from heterophilic antibodies. Elevated hCG levels have also been associated with trophoblastic disease and nontrophoblastic neoplasms. The possibility of having these diseases should be considered before a diagnosis of is made. This test is not intended for use as a surrogate marker for aiding in the diagnosis or monitoring the treatment of cancer patients. [employer] [place] methodology. Lab Order: Type & Screen; SPEC'M 06/13/16 00:32 Test: BLOOD TYPE; Value: O POS; Status: F Test: AB SCREEN (INDIRECT GRICELDA)VIS; Value: NEGATIVE; Status: F Lab Order: UA; SPEC'M 06/13/16 00:32 Test: APPEARANCE, URINE; Value: HAZY; Range: CLEAR; Status: F Test: COLOR, URINE; Value: TREVOR; Range: YELLOW; Status: F Test: PH,URINE; Value: 5.0; Range: 5.0-9.0; Units: UNITS; Status: F Test: SPECIFIC GRAVITY URINE AUTO; Value: 1.045; Range: 1.002-1.035; Status: F Test: PROTEIN, URINE AUTO; Value: 2+; Range: NEGATIVE; Abnormal: Above high normal; Units: mg/dL; Status: F Test: GLUCOSE, URINE (UA) AUTO; Value: NEGATIVE; Range: NEGATIVE; Units: mg/dL; Status: F Test: KETONE, URINE AUTO; Value: TRACE; Range: NEGATIVE; Abnormal: Above high normal; Units: mg/dL; Status: F Test: UROBILINOGEN, URINE AUTO; Value: 0.2; Range: 0.0-2.0; Units: mg/dL; Status: F Test: BILIRUBIN, URINE AUTO; Value: 1+; Range: NEGATIVE; Abnormal: Above high normal; Status: F Test: NITRITE, URINE AUTO; Value: NEGATIVE; Range: NEGATIVE; Status: F Test: LEUKOCYTE ESTERASE, URINE AUTO; Value: NEGATIVE; Range: NEGATIVE; Status: F Test: BLOOD, URINE BLOOD; Value: 3+; Range: NEGATIVE; Abnormal: Above high normal; Status: F Test: WBC, URINE AUTO; Value: 6; Range: 0-3; Abnormal: Above high normal; Units: /HPF; Status: F Test: RBC, URINE AUTO; Value: 1; Range: 0-3; Units: /HPF; Status: F Test: BACTERIA, URINE AUTO; Value: NEGATIVE; Range: NEGATIVE; Status: F Test: SQUAMOUS EPITHELIAL CELL UR AU; Value: 23; Range: 0-6; Units: /HPF; Status: F Test: MUCUS, URINE; Value: LARGE; Range: NEGATIVE; Status: F Test: HYALINE CAST, URINE AUTO; Value: 0; Range: 0-1; Units: /LPF; Status: F Lab Order: Urine Culture; SPEC'M 06/13/16 00:32 Test: URINE CULTURE; Value: <EXTERNAL COMMENT eCWMed> FULL REPORT IN LAB NOTES (eCW and Medent).; Status: F Test: URINE CULTURE; Value: URINE CULTURE RESULT NO GROWTH CLINICAL SIGNIFICANCE 1 ORGANISM; Status: F Lab Order: Wet Prep; SPEC'M 06/13/16 00:32 Test: WET PREP; Value: WET PREP RESULT; Status: F Test: WET PREP; Value: MODERATE EPITHELIAL CELLS PRESENT; Status: F Test: WET PREP; Value: FEW WBC; Status: F Test: WET PREP; Value: FEW RBC; Status: F Test: WET PREP; Value: Comments:; Status: F Test Note: ; Specimen did not meet the 1 hour time limit from collection to examination. Trichomonas vaginalis loses motility quickly therefore, samples need to be examined within 1 hour of collection to optimally identify this organism. Lab Order: GC & Chlamydia Amplification; SPEC'M 06/13/16 00:32 Test: CHLAMYDIA DNA AMPLIFICATION; Value: NEGATIVE; Range: NEGATIVE; Status: F Test: GC DNA AMPLIFICATION; Value: NEGATIVE; Range: NEGATIVE; Status: F Radiology Order: US 1st trimester Test: US 1st trimester REASON FOR EXAMINATION: MISCARRIAGE, R/O RPOC; ; CLINICAL HISTORY: Miscarriage.; TECHNIQUE: Endovaginal ultrasound of the pelvis was performed.; FINDINGS:; Comparison is made to prior exam performed on 06/09/2016.; Thickened endometrium measuring 14.4 mm.; The uterus is normal in size measuring 9x4.5x6 cm.; The right ovary measures a 2.3x2.4x2.5 cm.; The left ovary measures 3.5x2.5x1.8 cm.; No free fluid is seen in the pelvis.; IMPRESSION:; Thickened endometrium.; No intrauterine seen.; ; Outcome: 00:43 Ultrasound Study completed. cf2 02:29 Discharge ordered by Provider. ck7 02:44 Discharge Assessment: Patient awake, alert and oriented x 3. No cognitive and/or mlc functional deficits noted. Patient verbalized understanding of disposition instructions. patient administered narcotics - no. The following High Risk Discharge criteria are identified: None. Discharged to home ambulatory. Condition: good Condition: stable. Discharge instructions given to patient, Instructed on discharge instructions, follow up and referral plans. medication usage, Demonstrated understanding of instructions, medications, Pt was receptive of discharge instructions/ teaching. Prescriptions given X 2. Property sent home with patient. 02:45 [place] the [place]. [facility] [place] Signatures: Dispatcher [employer] Tere Salcedo Karen White, Reg Reg gb Hortensia Dc,RN RN dsf Elvira Lee Christopher, RPA-C [id number] Eliana Ortez, RN RN ttRoger Christie 2 Gabriela Hart,RN RN Sue Chino, Reg Reg ks16 Marielle Reed,RN RN cf2 Chart Complete MTDD
== END 2016-06-13 02:45 | disposition home or self-care (01) ==
LOC: M ED 22:15
DX: O03.9 Complete or unspecified spontaneous abortion without complication (principal); Z20.828 Contact with and (suspected) exposure to other viral communicable diseases; O99.331 Smoking (tobacco) complicating pregnancy, first trimester; O99.411 Diseases of the circulatory system complicating pregnancy, first trimester; I49.9 Cardiac arrhythmia, unspecified; F17.210 Nicotine dependence, cigarettes, uncomplicated; Z3A.01 Less than 8 weeks gestation of pregnancy

== ENCOUNTER → 2016-06-19 | Outpatient (CLI) | payer OTHER | LOC: M SMT 09:52 | PROVIDERS: ATTEND Advanced Practice Midwife | DX: O02.1 Missed abortion (principal) ==

== ENCOUNTER 2016-08-23 05:05 | Emergency (ER) | payer OTHER ==
[~2016-08-23] VITALS: Ht 162.6 cm; Wt 79.4 kg
[2016-08-23] MEDS ORDERED: PERCOCET 5MG/325MG TAB PO ONE (06:30)
[2016-08-23] MEDS ORDERED: PERC5TAB6 PO (07:19)
[2016-08-23] MEDS ORDERED: NAPR500T2 PO (07:22)
--- NOTE | 2016-08-23 07:33 | REP ---
Left ribs and PA chest: Left ribs four views: There is no rib fracture or other rib abnormality. PA chest: Comparison is the PA and lateral chest of 10/02/2005. There is no pneumothorax, hemothorax or pulmonary contusion. Lung carl are clear. Cardiac size is normal. The bobby, mediastinum, and bony thorax are unremarkable. There is no interval change. Impression: Negative PA chest. Signed by Case Sumner MD 08/23/2016 07:25 A
[2016-08-23 08:02] VITALS: BP 112/56
== END 2016-08-23 08:04 | disposition home or self-care (01) ==
LOC: M ED 05:48
DX: S20.219A Contusion of unspecified front wall of thorax, initial encounter (principal); W01.10XA Fall on same level from slipping, tripping and stumbling with subsequent striking against unspecified object, initial encounter; Y92.89 Other specified places as the place of occurrence of the external cause; Y93.01 Activity, walking, marching and hiking; Y99.8 Other external cause status; F17.210 Nicotine dependence, cigarettes, uncomplicated; Z79.899 Other long term (current) drug therapy; K21.9 Gastro-esophageal reflux disease without esophagitis; F31.9 Bipolar disorder, unspecified

== ENCOUNTER → 2016-12-24 | Outpatient (REF) | payer OTHER ==
[~2016-12-24] MED LIST changes: +NAPR500T3 PO; +PERC5TAB12 PO
== END ==
LOC: M LAB REF 12:40
PROVIDERS: ATTEND Physician Assistant
DX: Z20.2 Contact with and (suspected) exposure to infections with a predominantly sexual mode of transmission (principal)

== ENCOUNTER 2017-07-25 03:01 | Emergency (ER) | payer OTHER | END 2017-07-25 05:17 | disposition left against medical advice (07) | LOC: M ED 03:01 | DX: Z53.29 Procedure and treatment not carried out because of patient's decision for other reasons (principal) ==

== ENCOUNTER → 2017-11-28 | Outpatient (REF) | payer OTHER, MEDICAID ==
[2017-11-28 21:07] LABS: CHLAMYDIA DNA AMPLIFICATION POSITIVE (NEGATIVE); GC DNA AMPLIFICATION NEGATIVE (NEGATIVE)
== END ==
LOC: M LAB REF 17:15
DX: Z11.3 Encounter for screening for infections with a predominantly sexual mode of transmission (principal)
CPT/HCPCS: 87591

== ENCOUNTER → 2018-01-19 | Outpatient (REF) | payer OTHER | LOC: M LAB REF 09:33 | DX: Z00.00 Encounter for general adult medical examination without abnormal findings (principal) | CPT/HCPCS: 87430 ==

== ENCOUNTER 2018-02-25 19:06 | Emergency (ER) | payer SELFPAY, MEDICAID, OTHER ==
[2018-02-25] MEDS: NS 1,000 ML IV (20:15)
[2018-02-25] MEDS: KETOROLAC 30 MG/ML VIAL (J1885) IV (20:15)
[2018-02-25 20:35] LABS: BASO # 0.1 10^3/uL (0.0-0.2); BASO % 0.6 % (0.0-1.0); EOS # 0.1 10^3/uL (0.0-0.50); EOS % 1.1 % (0.0-3.0); HEMATOCRIT 40.4 % (36.0-47.0); HEMOGLOBIN 13.6 g/dl (12.0-15.5); IMMATURE GRANULOCYTE % 0.3 % (0-3.0); LYMPH # 3.5 10^3/uL (1.5-4.5); LYMPH % 29.8 % (24.0-44.0); MEAN CORPUSCULAR HEMOGLOBIN 31.7 pg (27.0-33.0); MEAN CORPUSCULAR HGB CONC 33.7 g/dl (32.0-36.5); MEAN CORPUSCULAR VOLUME 94.2 fl (80.0-96.0); MONO # 0.6 10^3/uL (0.0-0.8); MONO % 5.4 % (0.0-5.0); NEUTROPHILS # 7.4 10^3/uL (1.8-7.7); NEUTROPHILS % 62.8 % (36.0-66.0); PLATELET COUNT, AUTOMATED 210 10^3/uL (150-450); RED BLOOD COUNT 4.29 10^6/uL (4.00-5.40); RED CELL DISTRIBUTION WIDTH 12.8 % (11.5-14.5); WHITE BLOOD COUNT 11.8 10^3/uL (4.0-10.0)
[2018-02-25 20:42] LABS: KETONE, URINE AUTO RFX TRACE mg/dL (NEGATIVE); LEUKOCYTE ESTERASE UR AUTO RFX NEGATIVE (NEGATIVE); MUCUS, URINE RFX SMALL (NEGATIVE); NITRITE, URINE AUTO RFX NEGATIVE (NEGATIVE); RBC, URINE AUTO RFX 5 /HPF (0-3); SPECIFIC GRAVITY UR AUTO RFX 1.027 (1.002-1.035); SQUAM EPITHELIAL CELL UR AURFX 2 /HPF (0-6); WBC, URINE AUTO RFX 1 /HPF (0-3)
[2018-02-25 20:48] LABS: CONTROL LINE HCG INT CTR LINE PRESENT; HCG, SERUM QUALITATIVE NEGATIVE (NEGATIVE)
[2018-02-25] MEDS: metroNIDAZOLE (FLAGYL) 500 MG TAB PO (22:52)
[2018-02-25 23:55] LABS: CHLAMYDIA DNA AMPLIFICATION NEGATIVE (NEGATIVE); GC DNA AMPLIFICATION NEGATIVE (NEGATIVE)
== END 2018-02-25 22:58 | disposition home or self-care (01) ==
LOC: M ED 19:06
DX: N76.0 Acute vaginitis (principal); R10.2 Pelvic and perineal pain; K21.9 Gastro-esophageal reflux disease without esophagitis; Z79.899 Other long term (current) drug therapy
CPT/HCPCS: J1885

== ENCOUNTER 2018-03-09 18:40 | Emergency (ER) | payer SELFPAY ==
[2018-03-09] MEDS: NS 1,000 ML IV (19:13)
[2018-03-09] MEDS: ONDANSETRON 4MG/2ML VIAL (J2405) IV (19:13)
[2018-03-09] MEDS: MORPHINE 4 MG/ML 1ML VIAL/SYRINGE (J2270) IV (19:13)
[2018-03-09 19:18] LABS: BASO % 0.4 % (0.0-1.0); EOS # 0.2 10^3/uL (0.0-0.50); EOS % 1.5 % (0.0-3.0); HEMOGLOBIN 13.8 g/dl (12.0-15.5); IMMATURE GRANULOCYTE % 0.4 % (0-3.0); LYMPH # 3.4 10^3/uL (1.5-4.5); LYMPH % 29.8 % (24.0-44.0); MEAN CORPUSCULAR HEMOGLOBIN 31.9 pg (27.0-33.0); MEAN CORPUSCULAR HGB CONC 33.7 g/dl (32.0-36.5); MEAN CORPUSCULAR VOLUME 94.7 fl (80.0-96.0); MONO # 0.8 10^3/uL (0.0-0.8); MONO % 7.1 % (0.0-5.0); NEUTROPHILS # 6.8 10^3/uL (1.8-7.7); NEUTROPHILS % 60.8 % (36.0-66.0); PLATELET COUNT, AUTOMATED 207 10^3/uL (150-450); RED BLOOD COUNT 4.33 10^6/uL (4.00-5.40); RED CELL DISTRIBUTION WIDTH 12.6 % (11.5-14.5); WHITE BLOOD COUNT 11.3 10^3/uL (4.0-10.0)
[2018-03-09 19:35] LABS: ALBUMIN 3.5 GM/DL (3.2-5.2); ALBUMIN/GLOBULIN RATIO 0.92 (1.00-1.93); ALKALINE PHOSPHATASE 82 U/L (45-117); ALT/SGPT 31 U/L (12-78); ANION GAP 7 MEQ/L (8-16); AST/SGOT 18 U/L (7-37); BILIRUBIN,DIRECT < 0.1 MG/DL (0.0-0.2); BILIRUBIN,TOTAL 0.3 MG/DL (0.2-1.0); BLOOD UREA NITROGEN 15 MG/DL (7-18); CALCIUM LEVEL 8.7 MG/DL (8.5-10.1); CARBON DIOXIDE LEVEL 24 MEQ/L (21-32); CHLORIDE LEVEL 111 MEQ/L (98-107); GLOMERULAR FILTRATION RATE > 60.0 (>60); GLUCOSE, FASTING 91 MG/DL (70-100); LIPASE 218 U/L (73-393); POTASSIUM SERUM 4.1 MEQ/L (3.5-5.1); SODIUM LEVEL 142 MEQ/L (136-145); TOTAL PROTEIN 7.3 GM/DL (6.4-8.2)
[2018-03-09] MEDS: PANTOPRAZOLE 40MG INJ (PROTONIX) (C9113) IV (21:11)
== END 2018-03-09 21:20 | disposition home or self-care (01) ==
LOC: M ED 18:40
DX: K29.00 Acute gastritis without bleeding (principal); K76.0 Fatty (change of) liver, not elsewhere classified; F31.9 Bipolar disorder, unspecified; F17.200 Nicotine dependence, unspecified, uncomplicated
CPT/HCPCS: C9113

== ENCOUNTER → 2018-07-15 | Outpatient (CLI) | payer OTHER ==
[~2018-07-15] MED LIST changes: +CARA1TAB6 PO; +FLAG500T PO; +MELA3TAB24 PO; +NAPR-885 PO; -NAPR500T3 PO; +PROT1TAB2 PO
[2018-07-15 12:24] LABS: BASO % 0.4 % (0.0-1.0); EOS # 0.1 10^3/uL (0.0-0.50); EOS % 1.1 % (0.0-3.0); HEMATOCRIT 42.8 % (36.0-47.0); HEMOGLOBIN 14.1 g/dl (12.0-15.5); LYMPH # 2.8 10^3/uL (1.5-4.5); LYMPH % 26.2 % (24.0-44.0); MEAN CORPUSCULAR HEMOGLOBIN 31.1 pg (27.0-33.0); MEAN CORPUSCULAR HGB CONC 32.9 g/dl (32.0-36.5); MEAN CORPUSCULAR VOLUME 94.3 fl (80.0-96.0); MONO # 0.7 10^3/uL (0.0-0.8); MONO % 6.5 % (0.0-5.0); NEUTROPHILS % 65.4 % (36.0-66.0); PLATELET COUNT, AUTOMATED 209 10^3/uL (150-450); RED BLOOD COUNT 4.54 10^6/uL (4.00-5.40); WHITE BLOOD COUNT 10.7 10^3/uL (4.0-10.0)
[2018-07-15 12:55] LABS: ALT/SGPT 27 U/L (12-78); AMYLASE 47 U/L (25-115); BILIRUBIN,TOTAL 0.3 MG/DL (0.2-1.0); BLOOD UREA NITROGEN 14 MG/DL (7-18); CALCIUM LEVEL 8.9 MG/DL (8.5-10.1); CARBON DIOXIDE LEVEL 25 MEQ/L (21-32); CHLORIDE LEVEL 108 MEQ/L (98-107); CREATININE FOR GFR 0.91 MG/DL (0.55-1.30); FREE T4 1.16 NG/DL (0.76-1.46); GLOMERULAR FILTRATION RATE > 60.0 (>60); GLUCOSE, FASTING 95 MG/DL (70-100); LIPASE 207 U/L (73-393); POTASSIUM SERUM 4.8 MEQ/L (3.5-5.1); SODIUM LEVEL 140 MEQ/L (136-145); TOTAL PROTEIN 7.2 GM/DL (6.4-8.2)
[2018-07-16 10:25] LABS: HEPATITIS B SURFACE ANTIGEN NEGATIVE (NEGATIVE)
[2018-07-16 10:52] LABS: HEPATITIS B CORE ANTIBODY IGM NEGATIVE (NEGATIVE); HEPATITIS C VIRUS ABY INDEX < 0.0 INDEX (<0.8)
[2018-07-16 10:55] LABS: HEPATITIS A ANTIBODY IGM NEGATIVE (NEGATIVE)
== END ==
LOC: M WUC 09:37
PROVIDERS: ATTEND Physician Assistant
DX: R10.811 Right upper quadrant abdominal tenderness (principal)

== ENCOUNTER → 2018-07-18 | Outpatient (CLI) | payer OTHER ==
--- NOTE | 2018-07-18 08:45 | REP ---
RIGHT UPPER QUADRANT ULTRASOUND: 07/18/2018. Comparison: 03/09/2018. Clinical history. Right upper quadrant pain, tenderness. Findings: Scanning through the right upper quadrant shows the liver homogeneous in echotexture without focal hepatic mass, intrahepatic biliary dilatation nor perihepatic ascites. Gallbladder shows no stone, sludge, wall thickening or pericholecystic fluid. No sonographic Walker sign. Common duct is 6.5 mm without a filling defect. On the previous exam, it was 5.8 mm. Pancreas is limited in evaluation due to gas shadowing. Those segments seen were unremarkable. The right kidney is 11.4 x 5.3 x 4.4 cm. There are a few scattered echogenic foci in pyramids. No hydronephrosis or stone in the collecting system. Impression: 1. Liver, gallbladder, common duct and visible portions of pancreas unremarkable. 2. Right kidney with some echogenic foci in some of the pyramids. These might reflect very early calcifications but no hydronephrosis or stone in the collecting system. Electronically Signed by Eliud Chung MD 07/18/2018 06:21 P
== END ==
LOC: M RAD 06:24
PROVIDERS: ATTEND Physician Assistant
DX: R10.811 Right upper quadrant abdominal tenderness (principal)

== ENCOUNTER 2018-10-09 10:29 | Emergency (ER) | payer OTHER ==
[~2018-10-09] VITALS: Ht 162.6 cm; Wt 90.7 kg
[2018-10-09] MEDS ORDERED: KETOROLAC 30 MG/ML VIAL (J1885) IM ONE (11:00)
[2018-10-09] MEDS ORDERED: LIDOCAINE 2% MDV 20 ML VIAL SC ONE (11:30)
[2018-10-09] MEDS ORDERED: KETO10TAB PO (11:54)
[2018-10-09 12:06] VITALS: BP 123/72
== END 2018-10-09 12:07 | disposition home or self-care (01) ==
LOC: M ED 10:29
DX: K02.9 Dental caries, unspecified (principal)
CPT/HCPCS: 64400; 96372; 99283; J1885

== ENCOUNTER 2018-11-09 06:01 | Emergency (ER) | payer MEDICAID, OTHER, SELFPAY ==
[~2018-11-09] VITALS: Ht 162.6 cm; Wt 86.4 kg
[~2018-11-09 06:01] MED LIST changes: +KETO10TAB PO
[2018-11-09] MEDS ORDERED: LIDOCAINE 2% W/ EPINEPHRINE 1.7 ML DENTAL INJ SM ONE (06:45)
[2018-11-09 06:56] LABS: BASO % 0.3 % (0.0-1.0); EOS # 0.2 10^3/uL (0.0-0.50); EOS % 1.2 % (0.0-3.0); HEMATOCRIT 39.4 % (36.0-47.0); LYMPH # 3.5 10^3/uL (1.5-4.5); LYMPH % 27.3 % (24.0-44.0); MEAN CORPUSCULAR HEMOGLOBIN 32.2 pg (27.0-33.0); MEAN CORPUSCULAR VOLUME 97.5 fl (80.0-96.0); MONO # 0.9 10^3/uL (0.0-0.8); MONO % 6.6 % (0.0-5.0); NEUTROPHILS # 8.3 10^3/uL (1.8-7.7); NEUTROPHILS % 64.4 % (36.0-66.0); PLATELET COUNT, AUTOMATED 205 10^3/uL (150-450); RED BLOOD COUNT 4.04 10^6/uL (4.00-5.40); WHITE BLOOD COUNT 12.9 10^3/uL (4.0-10.0)
[2018-11-09] MEDS ORDERED: AUGM875T28 PO (07:03)
[2018-11-09 07:23] LABS: BLOOD UREA NITROGEN 13 MG/DL (7-18); CALCIUM LEVEL 8.4 MG/DL (8.5-10.1); CARBON DIOXIDE LEVEL 27 MEQ/L (21-32); CHLORIDE LEVEL 107 MEQ/L (98-107); CREATININE FOR GFR 0.89 MG/DL (0.55-1.30); GLOMERULAR FILTRATION RATE > 60.0 (>60); GLUCOSE, FASTING 96 MG/DL (70-100); SODIUM LEVEL 140 MEQ/L (136-145)
[2018-11-09 07:34] VITALS: BP 118/73
== END 2018-11-09 07:35 | disposition home or self-care (01) ==
LOC: M ED 06:01
DX: R68.84 Jaw pain (principal); K02.9 Dental caries, unspecified; K08.89 Other specified disorders of teeth and supporting structures; Z72.0 Tobacco use

== ENCOUNTER 2019-03-28 04:59 | Emergency (ER) | payer MEDICAID, OTHER ==
[~2019-03-28] VITALS: Ht 162.6 cm; Wt 86.4 kg
[~2019-03-28 04:59] MED LIST changes: +AUGM875T28 PO
[2019-03-28] MEDS ORDERED: VITA1TAB26 PO (05:03)
[2019-03-28] MEDS ORDERED: NS 1,000 ML IV ONE (05:45)
[2019-03-28] MEDS ORDERED: METOCLOPRAMIDE INJ 10MG/2ML VIAL (J2765) IV ONE (05:45)
[2019-03-28] MEDS ORDERED: MORPHINE 4 MG/ML 1ML VIAL/SYRINGE (J2270) IV ONE (05:45)
[2019-03-28 06:17] LABS: BASO % 0.3 % (0.0-1.0); EOS # 0.2 10^3/uL (0.0-0.5); EOS % 1.4 % (0.0-3.0); HEMATOCRIT 42.9 % (36.0-47.0); LYMPH # 2.6 10^3/uL (1.5-5.0); LYMPH % 22.5 % (24.0-44.0); MEAN CORPUSCULAR HGB CONC 32.6 g/dl (32.0-36.5); MEAN CORPUSCULAR VOLUME 97.9 fl (80.0-96.0); MONO % 8.2 % (0.0-5.0); NEUTROPHILS # 7.9 10^3/uL (1.5-8.5); NEUTROPHILS % 67.1 % (36.0-66.0); PLATELET COUNT, AUTOMATED 243 10^3/uL (150-450); RED BLOOD COUNT 4.38 10^6/uL (4.00-5.40); WHITE BLOOD COUNT 11.7 10^3/uL (4.0-10.0)
[2019-03-28 06:24] LABS: APPEARANCE, URINE CLEAR (CLEAR); BACTERIA, URINE AUTO NEGATIVE (NEGATIVE); BILIRUBIN, URINE AUTO NEGATIVE (NEGATIVE); BLOOD, URINE BLOOD 1+ (NEGATIVE); COLOR, URINE YELLOW (YELLOW); GLUCOSE, URINE (UA) AUTO NEGATIVE (NEGATIVE); KETONE, URINE AUTO NEGATIVE (NEGATIVE); LEUKOCYTE ESTERASE, URINE AUTO NEGATIVE (NEGATIVE); MUCUS, URINE SMALL (NEGATIVE); NITRITE, URINE AUTO NEGATIVE (NEGATIVE); PROTEIN, URINE AUTO NEGATIVE (NEGATIVE); RBC, URINE AUTO 5 /HPF (0-3); SPECIFIC GRAVITY URINE AUTO 1.019 (1.002-1.035); SQUAMOUS EPITHELIAL CELL UR AU 2 /HPF (0-6); UROBILINOGEN, URINE AUTO 0.2 mg/dL (0.0-2.0); WBC, URINE AUTO 1 /HPF (0-3)
[2019-03-28 06:38] LABS: HCG, SERUM QUALITATIVE NEGATIVE (NEGATIVE)
[2019-03-28 06:39] LABS: ALBUMIN 3.7 GM/DL (3.2-5.2); ALT/SGPT 39 U/L (12-78); BILIRUBIN,DIRECT < 0.1 MG/DL (0.0-0.2); BILIRUBIN,TOTAL 0.2 MG/DL (0.2-1.0); BLOOD UREA NITROGEN 17 MG/DL (7-18); CALCIUM LEVEL 9.2 MG/DL (8.5-10.1); CARBON DIOXIDE LEVEL 27 MEQ/L (21-32); CHLORIDE LEVEL 109 MEQ/L (98-107); CREATININE FOR GFR 0.97 MG/DL (0.55-1.30); GLOMERULAR FILTRATION RATE > 60.0 (>60); GLUCOSE, FASTING 83 MG/DL (70-100); LIPASE 167 U/L (73-393); SODIUM LEVEL 142 MEQ/L (136-145); TOTAL PROTEIN 7.7 GM/DL (6.4-8.2)
[2019-03-28] MEDS ORDERED: ISOVUE-370 76% 100ML VIAL (Q9967) As Ordered ONE (07:15)
[2019-03-28] MEDS ORDERED: MORPHINE 2 MG/ML 1ML VIAL (J2270) IV PRN (07:30)
--- NOTE | 2019-03-28 07:50 | REPVR ---
PROCEDURE INFORMATION: Exam: CT Abdomen And Pelvis Without And With Contrast Exam date and time: 03/28/2019 7:20 AM Age: 33 years old Clinical history: Abdominal pain; Additional info: Stone vs appy vs diverti TECHNIQUE: Imaging protocol: Computed tomography of the abdomen and pelvis without and with intravenous contrast. Radiation optimization: All CT scans at this facility use at least one of these dose optimization techniques: automated exposure control; mA and/or kV adjustment per patient size (includes targeted exams where dose is matched to clinical indication); or iterative reconstruction. Contrast material: ISOVUE 370; Contrast volume: 100 ml; Contrast route: IV; COMPARISON: US PELVIC NON-OB COMPLETE 02/25/2018 8:39 PM FINDINGS: Lungs: There severe bilateral posterior ground glass dependent atelectatic changes versus infiltrates. Liver: Normal. No mass. Gallbladder and bile ducts: Normal. No calcified stones. No ductal dilation. Pancreas: Normal. No ductal dilation. Spleen: Evaluation of the spleen on post contrast images is limited due to the heterogeneous phase imaging. Adrenals: Normal. No mass. Kidneys and ureters: Normal. No hydronephrosis. Stomach and bowel: Unremarkable. No obstruction. No mucosal thickening. Appendix: No evidence of appendicitis. Intraperitoneal space: Unremarkable. No free air. No significant fluid collection. Vasculature: Unremarkable. No abdominal aortic aneurysm. Lymph nodes: Unremarkable. No enlarged lymph nodes. Bladder: Unremarkable as visualized. Reproductive: Unremarkable as visualized. Bones/joints: T11 and T12 superior endplate Schmorl's nodes. Soft tissues: Unremarkable. IMPRESSION: 1. No CT evidence of acute appendicitis or diverticulitis. 2. Significant bilateral posterior ground glass dependent atelectatic changes versus infiltrates. Electronically signed by: Tigre Duong On 03/28/2019 07:50:09 AM
[2019-03-28 09:08] VITALS: BP 112/53
[2019-03-28 09:55] LABS: CHLAMYDIA DNA AMPLIFICATION NEGATIVE (NEGATIVE); GC DNA AMPLIFICATION NEGATIVE (NEGATIVE)
== END 2019-03-28 09:09 | disposition home or self-care (01) ==
LOC: M ED 04:59
DX: R10.31 Right lower quadrant pain (principal); K21.9 Gastro-esophageal reflux disease without esophagitis; F17.210 Nicotine dependence, cigarettes, uncomplicated
CPT/HCPCS: 74178; 80048; 80076; 81001; 83690; 84703; 85025; 87086; 87210; 87491; 87591; 96361; 96374; 96376; 99284; J2270; J2765; Q9967

== ENCOUNTER 2019-03-29 09:42 | Emergency (ER) | payer OTHER ==
[~2019-03-29] VITALS: Ht 162.6 cm; Wt 93.8 kg
[~2019-03-29 09:42] MED LIST changes: +VITA1TAB26 PO
[2019-03-29 12:57] LABS: BASO % 0.3 % (0.0-1.0); EOS % 0.2 % (0.0-3.0); HEMATOCRIT 43.3 % (36.0-47.0); HEMOGLOBIN 14.1 g/dl (12.0-15.5); LYMPH # 1.9 10^3/uL (1.5-5.0); LYMPH % 16.5 % (24.0-44.0); MEAN CORPUSCULAR HEMOGLOBIN 31.5 pg (27.0-33.0); MEAN CORPUSCULAR HGB CONC 32.6 g/dl (32.0-36.5); MEAN CORPUSCULAR VOLUME 96.7 fl (80.0-96.0); MONO # 0.7 10^3/uL (0.0-0.8); NEUTROPHILS % 76.6 % (36.0-66.0); PLATELET COUNT, AUTOMATED 231 10^3/uL (150-450); RED BLOOD COUNT 4.48 10^6/uL (4.00-5.40); WHITE BLOOD COUNT 11.7 10^3/uL (4.0-10.0)
[2019-03-29 13:32] LABS: ALBUMIN 3.6 GM/DL (3.2-5.2); BILIRUBIN,DIRECT 0.1 MG/DL (0.0-0.2); BILIRUBIN,TOTAL 0.6 MG/DL (0.2-1.0); TOTAL PROTEIN 7.6 GM/DL (6.4-8.2)
--- NOTE | 2019-03-29 13:43 | REP ---
PORTABLE CHEST: REASON: Right-sided chest pain. COMPARISON: Multiple. The latest frontal view obtained as part of a rib series 08/23/2016. There is a discoid opacity in the left lower lobe likely subsegmental atelectatic change representing a change from the prior exam. The pleural angles are sharp and the heart is not enlarged. The lung carl are otherwise clear. The osseous structures are within normal limits. IMPRESSION: Suspect discoid atelectasis left lower lobe. Electronically Signed by Alfredo Min DO 03/29/2019 02:16 P
--- NOTE | 2019-03-29 14:15 | REP ---
REASON: Pelvic pain. COMPARISON: 02/25/2018 The prior exam is within normal limits. Secondary to the patient's complaints of pain, ovarian Doppler was obtained bilaterally. Transvesical and transvaginal imaging was obtained. The uterus is within normal limits for size, shape, and echo pattern measuring 8.3 x 3.6 x 5.3 cm. The endometrial echo complex is normal measuring 5 mm. The right ovary measures 3.4 x 1.7 x 2.0 cm and is within normal limits with an RI of 0.58. The left ovary measures 1.8 x 1.5 x 2.9 cm and is within normal limits with an RI of 0.41. There is a small amount of free fluid in the cul-de-sac probably physiologic. IMPRESSION: Normal exam. Electronically Signed by lAfredo Min DO 03/29/2019 02:17 P
[2019-03-29 14:25] VITALS: BP 99/58
--- NOTE | 2019-03-29 14:33 | REP ---
REASON FOR EXAM: Unknown. Patient has tachycardia. Lung base images from 03/28/2019 CT abdomen and pelvis showed subsegmental atelectatic changes. The lack of intravenous contrast significantly decreases the sensitivity of the exam. There is no gross mediastinal or hilar adenopathy. There are no pleural or pericardial effusions. The imaged upper abdomen is unremarkable. The imaged osseous structures are within normal limits. Evaluation of the lung carl show no abnormal nodules, masses, or opacities. T her evidence of bilateral basilar subsegmental atelectatic change. IMPRESSION: Bilateral dependent subsegmental atelectasis. Electronically Signed by Alfredo Min DO 03/29/2019 03:08 P
[2019-03-29] MEDS ORDERED: KETOROLAC 30 MG/ML VIAL (J1885) IV ONE (14:45)
[2019-03-29] MEDS ORDERED: ONDANSETRON 4MG/2ML VIAL (J2405) As Ordered ONE (14:53)
[2019-03-29] MEDS ORDERED: ONDANSETRON 4MG/2ML VIAL (J2405) IV ONE (15:00)
== END 2019-03-29 15:06 | disposition home or self-care (01) ==
LOC: M ED 09:42
DX: R10.9 Unspecified abdominal pain (principal); R11.0 Nausea; K21.9 Gastro-esophageal reflux disease without esophagitis; F31.9 Bipolar disorder, unspecified; F17.218 Nicotine dependence, cigarettes, with other nicotine-induced disorders
CPT/HCPCS: 71046; 71250; 76830; 76856; 80047; 80076; 83690; 85025; 93976; 96374; 96375; 99284; J1885; J2405

== ENCOUNTER → 2020-01-04 | Outpatient (REF) | payer OTHER ==
[2020-01-04 18:58] LABS: BASO % 0.5 % (0.0-1.0); EOS # 0.1 10^3/uL (0.0-0.5); EOS % 0.7 % (0.0-3.0); HEMATOCRIT 45.3 % (36.0-47.0); HEMOGLOBIN 14.8 g/dl (12.0-15.5); LYMPH # 2.4 10^3/uL (1.5-5.0); LYMPH % 27.1 % (24.0-44.0); MEAN CORPUSCULAR HEMOGLOBIN 31.4 pg (27.0-33.0); MEAN CORPUSCULAR HGB CONC 32.7 g/dl (32.0-36.5); MEAN CORPUSCULAR VOLUME 96.2 fl (80.0-96.0); MONO # 0.6 10^3/uL (0.0-0.8); MONO % 6.9 % (0.0-5.0); NEUTROPHILS # 5.7 10^3/uL (1.5-8.5); NEUTROPHILS % 64.6 % (36.0-66.0); PLATELET COUNT, AUTOMATED 226 10^3/uL (150-450); RED BLOOD COUNT 4.71 10^6/uL (4.00-5.40); WHITE BLOOD COUNT 8.8 10^3/uL (4.0-10.0)
[2020-01-04 19:05] LABS: ALT/SGPT 35 U/L (12-78); BILIRUBIN,TOTAL 0.5 MG/DL (0.2-1.0); BLOOD UREA NITROGEN 10 MG/DL (7-18); CALCIUM LEVEL 9.2 MG/DL (8.5-10.1); CARBON DIOXIDE LEVEL 26 MEQ/L (21-32); CHLORIDE LEVEL 107 MEQ/L (98-107); CREATININE FOR GFR 0.94 MG/DL (0.55-1.30); FREE T4 1.23 NG/DL (0.76-1.46); GLOMERULAR FILTRATION RATE > 60.0 (>60); GLUCOSE, FASTING 102 MG/DL (70-100); POTASSIUM SERUM 4.3 MEQ/L (3.5-5.1); SODIUM LEVEL 139 MEQ/L (136-145); TOTAL PROTEIN 7.9 GM/DL (6.4-8.2)
[2020-01-04 19:32] LABS: HEMOGLOBIN A1c 5.7 %
== END ==
LOC: M LAB REF 17:50
PROVIDERS: ATTEND Physician Assistant
DX: E66.09 Other obesity due to excess calories (principal)

== ENCOUNTER 2020-04-15 18:43 | Emergency (ER) | payer OTHER ==
[~2020-04-15] VITALS: Ht 162.6 cm; Wt 91.4 kg
[2020-04-15 18:45] VITALS: BP 122/75
[2020-04-15] MEDS ORDERED: BUPR15TASR (18:51)
[2020-04-15] MEDS ORDERED: PENI500T PO (19:56)
[2020-04-15] MEDS ORDERED: PENICILLIN V POTASSIUM 500 MG TAB PO ONE (20:00)
== END 2020-04-15 20:04 | disposition home or self-care (01) ==
LOC: M ED 18:43
DX: K02.9 Dental caries, unspecified (principal); F17.200 Nicotine dependence, unspecified, uncomplicated

== ENCOUNTER → 2020-10-14 | Outpatient (REF) | payer OTHER ==
[~2020-10-14] MED LIST changes: +BUPR15TASR; +PENI500T PO
== END ==
LOC: M LAB REF 16:13
PROVIDERS: ATTEND Physician Assistant
DX: J02.9 Acute pharyngitis, unspecified (principal)

== ENCOUNTER → 2021-01-25 | Outpatient (REF) | payer OTHER ==
[2021-01-25 11:35] LABS: BASO # 0.1 10^3/uL (0.0-0.2); BASO % 0.6 % (0.0-1.0); EOS # 0.2 10^3/uL (0.0-0.5); EOS % 1.6 % (0.0-3.0); HEMATOCRIT 42.7 % (36.0-47.0); HEMOGLOBIN 14.3 g/dl (12.0-15.5); LYMPH # 2.7 10^3/uL (1.5-5.0); LYMPH % 27.1 % (24.0-44.0); MEAN CORPUSCULAR HEMOGLOBIN 31.9 pg (27.0-33.0); MEAN CORPUSCULAR HGB CONC 33.5 g/dl (32.0-36.5); MEAN CORPUSCULAR VOLUME 95.3 fl (80.0-96.0); MONO # 0.7 10^3/uL (0.0-0.8); MONO % 7.3 % (2.0-8.0); NEUTROPHILS # 6.3 10^3/uL (1.5-8.5); PLATELET COUNT, AUTOMATED 229 10^3/uL (150-450); RED BLOOD COUNT 4.48 10^6/uL (4.00-5.40); WHITE BLOOD COUNT 10.1 10^3/uL (4.0-10.0)
[2021-01-26 16:13] LABS: Lyme Disease IgG/IgM Antibodie <0.91 ISR (0.00-0.90); Lyme Disease IgM Ab Quantitati <0.80 index (0.00-0.79)
== END ==
LOC: M LAB REF 11:08
PROVIDERS: ATTEND Physician Assistant
DX: R21 Rash and other nonspecific skin eruption (principal)

== ENCOUNTER 2021-02-26 00:40 | Emergency (ER) | payer OTHER ==
[~2021-02-26] VITALS: Ht 162.6 cm; Wt 81.8 kg
--- OUTSIDE RECORDS SUMMARY | 2021-02-26 00:45 | CCD ---
Author Author [facility] Organization [facility] Address Unknown Phone Unavailable Care Team Providers Care Telecommunications Clerk Name Role Phone Brendon ZACARIAS MD Unavailable Unavailable ANTECOL, Brendon BENAVIDES MD Unavailable Unavailable ANTECOLBrendon MD Unavailable Unavailable ANTECOLBrendon MD Unavailable Unavailable ANTECOLBrendon MD Unavailable Unavailable ANTECOLBrendon MD Unavailable Unavailable ANTECOLBrendon MD Unavailable Unavailable ANTECOLBrendon MD Unavailable Unavailable ANTECOLBrendon MD Unavailable Unavailable ANTECOLBrendon MD Unavailable Unavailable ANTECOLBrendon MD Unavailable Unavailable ANTECOLBrendon MD Unavailable Unavailable ANTECOLBrendon MD Unavailable Unavailable ANTECOLBrendon MD Unavailable Unavailable ANTECOLBrendon MD Unavailable Unavailable ANTECOLBrendon MD Unavailable Unavailable ANTECOLBrendon MD Unavailable Unavailable ANTECOLBrendon MD Unavailable Unavailable ANTECOLBrendon MD Unavailable Unavailable ANTECOLBrendon MD Unavailable Unavailable ANTECOLBrendon MD Unavailable Unavailable ANTECOLBrendon MD Unavailable Unavailable ANTECOLBrendon MD Unavailable Unavailable ANTECOLBrendon MD Unavailable Unavailable ANTECOLBrendon MD Unavailable Unavailable ANTECOLBrendon MD Unavailable Unavailable ANTECOL, Brendon BENAVIDES MD Unavailable Unavailable ANTECOL, Brendon BENAVIDES MD Unavailable Unavailable ANTECOL, Brendon BENAVIDES MD Unavailable Unavailable ANTECOL, Brendon BENAVIDES MD Unavailable Unavailable ANTECOL, Brendon BENAVIDES MD Unavailable Unavailable ANTECOL, Brendon BENAVIDES MD Unavailable Unavailable ANTECOL, Brendon BENAVIDES MD Unavailable Unavailable ANTECOL, Brendon BENAVIDES MD Unavailable Unavailable ANTECOL, Brendon BENAVIDES MD Unavailable Unavailable ANTECOL, Brendon BENAVIDES MD Unavailable Unavailable ANTECOL, Brendon BENAVIDES MD Unavailable Unavailable ANTECOL, Brendon BENAVIDES MD Unavailable Unavailable ANTECOL, Brendon BENAVIDES MD Unavailable Unavailable ANTECOL, Brendon BENAVIDES MD Unavailable Unavailable ANTECOL, Brendon BENAVIDES MD Unavailable Unavailable ANTECOL, Brendon BENAVIDES MD Unavailable Unavailable ANTECOL, Brendon BENAVIDES MD Unavailable Unavailable ANTECOL, Brendon BENAVIDES MD Unavailable Unavailable ANTECOL, Brendon BENAVIDES MD Unavailable Unavailable ANTECOL, Brendon BENAVIDES MD Unavailable Unavailable ANTECOL, Brendon BENAVIDES MD Unavailable Unavailable ANTECOL, Brendon BENAVIDES MD Unavailable Unavailable ANTECOL, Brendon BENAVIDES MD Unavailable Unavailable ANTECOL, Brendon BENAVIDES MD Unavailable Unavailable ANTECOL, Brendon BENAVIDES MD Unavailable Unavailable ANTECOL, Brendon BENAVIDES MD Unavailable Unavailable ANTECOL, Brendon BENAVIDES MD Unavailable Unavailable ANTECOL, Brendon BENAVIDES MD Unavailable Unavailable Re-disclosure Warning The records that you are about to access may contain information from federally-assisted alcohol or drug abuse programs. If such information is present, then the following federally mandated warning applies: This information has been disclosed to you from records protected by federal confidentiality rules (42 CFR part 2). The federal rules prohibit you from making any further disclosure of this information unless further disclosure is expressly permitted by the written consent of the person to whom it pertains or as otherwise permitted by 42 CFR part 2. A general authorization for the release of medical or other information is NOT sufficient for this purpose. The Federal rules restrict any use of the information to criminally investigate or prosecute any alcohol or drug abuse patient.The records that you are about to access may contain highly sensitive health information, the redisclosure of which is protected by Article 27-F of the [facility] Public Health law. If you continue you may have access to information: Regarding HIV / AIDS; Provided by facilities licensed or operated by the [facility] Office of Mental Health; or Provided by the [facility] Office for People With Developmental Disabilities. If such information is present, then the following [facility] mandated warning applies: This information has been disclosed to you from confidential records which are protected by state law. State law prohibits you from making any further disclosure of this information without the specific written consent of the person to whom it pertains, or as otherwise permitted by law. Any unauthorized further disclosure in violation of state law may result in a fine or group home sentence or both. A general authorization for the release of medical or other information is NOT sufficient authorization for further disc losure. Family History Family Member Name Family Member Gender Family Member Status Date o f Status Description Data Source(s) Unknown Unknown Problem [facility] Unknown Unknown Problem [facility] ([facility], ) Unknown Unknown Problem [facility] ([facility], ) Encounters Encounter Providers Location Date Indications Data Source(s ) Outpatient Attender: KENNEDY ZACARIAS MD Main Office 02/17/2020 08:45:00 AM EDT [facility] ([facility]) Outpatient FP 01/27/2020 10:58:01 AM EDT [facility] Outpatient FP 01/27/2020 10:58:01 AM EDT [facility] Outpatient FP 01/04/2020 05:18:00 PM EDT [facility] Outpatient FP 01/04/2020 05:16:00 PM EDT [facility] Outpatient FP 01/04/2020 01:58:02 PM EDT [facility] Outpatient FP 01/04/2020 01:56:59 PM EDT [facility] Outpatient FP 01/02/2020 12:02:19 AM EDT [facility] Outpatient FP 01/01/2020 02:23:01 PM EDT [facility] Outpatient FP 01/01/2020 02:22:01 PM EDT [facility] Outpatient FP 01/01/2020 02:21:01 PM EDT [facility] Outpatient FP 12/31/2019 12:13:00 PM EDT [facility] Medications Medication Brand Name Start Date Product Form Dose Route Admi nistrative Instructions Pharmacy Instructions Status Indications Reaction Description Data Source(s) Triamcinolone Acetonide 1 MG/ML Topical Cream 0.1 % TRIAMCIN OLONE ACETONIDE 01/25/2021 12:00:00 AM EDT cream 15 APPLY TWO TIME S A DAY APPLY TWO TIMES A DAY SOLD: 01/25/2021 [facility] 875 mg 01/25/2021 12:00:00 AM EDT tablet 20 TAKE 1 TABLET BY MOUTH EVERY 12 HOUR FOR 10 DAYS TAKE 1 TABLET BY MOUTH EVERY 12 HOUR FOR 10 DAYS SOLD: 01/25/2021 [facility] 90 mcg/actuation 10/27/2020 12:00:00 AM EDT HFA aerosol inha ler 18 INHALE TWO PUFFS BY MOUTH THREE TIMES A DAY FOR 10 DAYS INHALE TWO PUFFS BY MOUTH THREE TIMES A DAY FOR 10 DAYS SOLD: 10/28/2020 [facility] Clindamycin 300 MG Oral Capsule CLINDAMYCIN HCL 10/27/2020 12:00 :00 AM EDT capsule 14 TAKE ONE CAPSULE BY MOUTH TWICE A DAY FOR 7 DAYS TAKE ONE CAPSULE BY MOUTH TWICE A DAY FOR 7 DAYS SOLD: 10/28/2020 [facility] 250 mg 05/09/2020 12:00:00 AM EST tablet 6 TAKE TWO TABLETS BY MOUTH AT ONCE ON THE FIRST DAY THEN TAKE ONE DAILY THEREAFTER TAKE TWO TABLETS BY MOUTH AT ONCE ON THE FIRST DAY THEN TAKE ONE DAILY THEREAFTER SOLD: 05/14/2020 [facility] Penicillin V Potassium 500 MG Oral Tablet PENICILLIN V POTAS SIUM 04/15/2020 12:00:00 AM EST tablet 40 TAKE ONE TABLET BY MOUTH FOUR TIMES A DAY FOR 10 DAYS TAKE ONE TABLET BY MOUTH FOUR TIMES A DAY FOR 10 DAYS SOLD: 020 [facility] 12 HR Bupropion Hydrochloride 150 MG Extended Release Oral Tablet [Wellbutrin] Wellbutrin SR 02/16/2020 12:00:00 AM EDT ORAL active [facility] ([facility]) Clindamycin 300 MG Oral Capsule Clindamycin HCL 02/16/2020 12:00:00 A M EDT ORAL active [facility] ([facility]) Clindamycin 300 MG Oral Capsule CLINDAMYCIN HCL 02/10/2020 12:00 :00 AM EDT capsule 30 TAKE ONE CAPSULE BY MOUTH THREE TIMES A DAY FOR 10 DAYS TAKE ONE CAPSULE BY MOUTH THREE TIMES A DAY FOR 10 DAYS SOLD: 02/10/2020 [facility] 150 mg 01/05/2020 12:00:00 AM EDT tablet extended release 12 hr 30 TAKE ONE TABLET BY MOUTH EVERY DAY IN THE MORNING TAKE ONE TABLET BY MOUTH EVERY DAY IN THE MORNING SOLD: 01/06/2020 [facility] 0.75 % 01/04/2020 12:00:00 AM EDT gel 70 APPLY ONE APPLICATORFUL EACH NIGHT FOR 5 DAYS APPLY ONE APPLICATORFUL EACH NIGHT FOR 5 DAYS SOLD: 01/06/2020 [facility] Insurance Providers Payer name Policy type / Coverage type Policy ID Covered libertarian ID Covered libertarian's relationship to wolfe Policy Wol[place] Plan Information TIFFANIE [id number] SP [id number] MEDICAID [id number] SP [id number] Medicaid S [id number] S [id number] Managed Care - [facility] P [id number] S [id number] Managed Care - [facility] P [id number] S [id number] Medicaid P [id number] S [id number] Medicaid S [id number] S [id number] Managed Care - [facility] Community Plan P [id number] S [id number] [facility] [id number] SP [id number] Self Pay P UNAVAILABLE S UNAVAILA BLE [facility] Organization (HMO) [id number] Self [id number] [facility] COMMUNITY PLAN [facility] [id number] SP [id number] [place] O [id number] S [id number] Medicaid [place] Medigap Part B [id number] Self Luana Care [place] Medicaid ..[id number] Self STATE FARM INS NO FAULT [id number] SP [id number] [facility] COMMUNITY PLAN [facility] [id number] SP [id number] Sliding Fee Scale O none S no ne [facility] O [id number] S [id number] [facility] COMMUNITY PLAN XIX [id number] 18 [id number] [facility] COMMUNITY PLAN [facility] [id number] SP [id number] MEDICAID [id number] SP [id number] SELF PAY ONLY [id number] SP [id number] [facility] COMMUNITY PL[facility] [id number] SP [id number] Problems, Conditions, and Diagnoses Code Display Name Description Problem Type Effective Dates Data Source(s) V70.0 Encounter for general adult medical exam ination with abnormal findings Encounter for general adult medical examination with abnormal findings 01/04/2020 01:56:06 PM EDT [facility] 706.2 Sebaceous cyst Sebaceous cyst 01/04/2020 01:56: 06 PM EDT [facility] I38 Endocarditis, valve unspecified Valvular malfunction 01/04/2020 01:56:06 PM EDT [facility] N76.0 Acute vaginitis Vaginitis and vulvovaginitis 01:56:06 PM EDT [facility] 388.70 Otalgia, bilateral Otalgia, bilateral 0 01:56:06 PM EDT [facility] Surgeries/Procedures Procedure Description Date Indications Data Source(s) ECG ROUTINE ECG W/LEAST 12 LDS W/I&R 02/17/2020 12:00: 00 AM EDT [facility] ([facility]) Results ID Date Data Source [id number] 10/14/2020 12:00:00 AM EDT [facility] Name Value Range Interpretation Code Description Data Kitty rce(s) Supporting Document(s) SARS-CoV2 Rapid Antigen Positive [facility] This lab was ordered by [facility] and reported by [facility]. ID Date Data Source [id number] 05/09/2020 12:00:00 AM EST [facility] Name Value Range Interpretation Code Description Data Kitty rce(s) Supporting Document(s) SARS-CoV2 Rapid Antigen [facility] and reported by [facility]. ID Date Data Source [id number] 01/04/2020 12:40:38 PM EDT [facility] Measurements & CalculationsHeight: 64 inches 162.56 cm Weight: 202 pounds 91.82 kg Body Mass Index (BMI): 34.80BMI Interpretation: ObeseBody Surface Area (BSA): 1.97Weight Management Education Done (Nutrition/Physical Activity)Vital SignsTemperature: 98.2FPulse Rate: 97 beats/minuteRespiratory Rate: 14 respirations/minuteBlood Pressure: 131/79 Vital Signs performed by: Lindy Chester, January 04, 2020 12:43 PMVital Signs performed by: Lindy Chester, January 04, 2020 12:43 PMInitial Intake Information From: patientRoom #: 8Infectious Disease / Travel ScreeningRecent travel for you or any close contacts? NoHave you had any close contact with anyone diagnosed with or under investigation for COVID-19 (coronavirus)? NoFever? NoRespiratory symptoms: cough, cold, congestion, shortness of breath, difficulty breathing? NoLoss of smell? NoLoss of taste? NoSmoking, Tobacco, Vaping or Smoke Exposure StatusSmoke Status: current every day smokerTobacco Use: YesDo you vape? NoMenstrual HistoryLast Menstrual Period (LMP): 12/01/2019Any possibility of ? NoHealthcare HistorySince your last office visit...Have you been admitted to the hospital? NoHave you been to an emergency room (ER) or urgent care clinic? NoHave you seen another healthcare provider? NoHave you seen a dentist? Yes - ncfhcIntake performed by: Lindy Chester, January 04, 2020 12:44 PMRate Your HealthIn general, would you say your health is? FairPain AssessmentAre you currently having any pain which... You would like your provider to address? No Affects your activity level? NoDepression Screening - PHQ-2Over the last two weeks, have you... Had little interest or pleasure in doing things? Not at all Been feeling down, depressed, or hopeless? Not at all PHQ-2 Score: 0Anxiety Screening - ANALILIA-2Over the last two weeks, have you been... Feeling nervous, anxious, or on edge? Not at all Unable to stop or control worrying? Not at all ANALILIA-2 Score: 0Food InsecurityWithin the past year...Did you worry whether your food would run out before you got money to buy more? Never trueWas there a time when the food you bought didn't last and you didn't have money to get more? Never truePRAPARE Sociodemographic Characteristics Race: White Ethnicity: Not or Preferred Language: EnglishFamily and Home Address: [address] [place] [address] What is your housing situation today? I have housing Are you worried about losing your housing? NoMoney and Resources Employed? Yes Your current work situation? FT Insurance: Managed Care - [facility] Community PlanIn the past year, have you or any family members you live with been unable to get any of the following when it was really needed? Denies Insecurity: food, utilities, clothing, school childcare attendant, phone, legal services, otherWithin the past year did you worry whether your food would run out before you got money to buy more? Never trueWithin the past year was there a time when the food you bought didn't last and you didn't have money to get more? Never trueScreening, Brief Intervention, & Referral to Treatment (SBIRT)Pre-Screening Questions How many times have you have 4 or more drinks in a day? 0How many times have you used an illegal drug or used a prescription medication for a non-medical reason? 0Performed by: Lindy Chester, January 04, 2020 12:46 PMPatient History Medical History:depression as teenagerheart valve issuesSurgical History:c-[id number] History:Hypertension (Father)brain cancer (cousin)uterine cancer (cousin)pancreatic cancer (cousin)Social/Personal History: Chief Complaintannual examHistory of Present Illness (HPI)34 y/o female here in clinic today for an annual exam. Patient has ear pain and itchiness in both ears. Skin is irritated. Has tried drops OTC without benefit. No cough, congestion, decreased hearing. Patient also thinks she has a boil on left thigh present x 2 months. Does get painful, red, and increase in size. Currently not bothering her. Would like it removed. Feeling well overall. Does complain of generalized fatigue. Struggling with stress and anxiety. No depression issues. Feels the fluoxetine made her tired, but is interested in an alternative medication. Would also like to quit smoking. No bowel or bladder concerns. 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 Last pap she believes was over a year ago and normal. Would like to see a auxiliary equipment tender for her past history of "heart valve issues". Previously seen in [place] for this.Transitions of Care InboundProblem ReviewProblem List was reviewed and/or updated during this visit.Medication Reconciliation & ReviewMedication List was reviewed and/or updated during this visit, including review of any [id number] medications, herbal therapies, and/or supplements.Allergy ReviewAllergy List was reviewed and/or updated during this visit.Adult Preventive CareProvider Calculated and Reviewed all Clinical Protocols for patient today. Labs/Meds/Other Counseling-Nutrition and Physical Activity:BMI Interpretation: Obese (01/04/2020) Counseling: Done (01/04/2020) Physical Activity: Done (01/04/2020)Cancer Screening - Summary Review of Systems General: Denies loss of appetite, chills, dizziness, fatigue, fever, continued fever, headache, feeling ill, sweats, night sweats, sleep disturbances, weight loss. Eyes: Denies blurring of vision, double vision, irritation, discharge, vision loss, eye pain, eye swelling, droopy eyelid, sensitivity to light, redness, itching. Ears/Nose/Throat: Complains of earache. Denies ear discharge, ringing in ears, decreased hearing, nasal congestion, nosebleeds, runny nose, sore throat, hoarseness, difficulty swallowing, dry mouth, tooth pain, bleeding gums, swollen glands. Cardiovascular: Complains of palpitations, feeling faint. Denies chest pain, trouble breathing w/exertion, SOB upon lying down, SOB at night, peripheral edema, elevated blood pressure, decreased heart rate. Respiratory: Denies cough, difficulty breathing, shortness of breath, excessive sputum, coughing up blood, wheezing, chest pain. Breast: Denies discoloration, tenderness, breast changes, breast lump, nipple discharge. Gastrointestinal: Denies nausea, vomiting, bleeding, burning, itching, irritation, cramps, diarrhea, bloody diarrhea, watery diarrhea, constipation, pain or discomfort, feeling any lumps or bumps, pain with BM, pain during receptive anal sex, change in bowel habits, fecal incontinence, abdominal pain, blood in stool, black or tarry stools, jaundice, heartburn, urge to defecate. Skin: Denies rash, hives, redness, itching, dryness, nail changes, suspicious lesions, athlete's foot, rash on palms, rash on bottom of feet. boil on left inner thighPsychiatric: Complains of anxiety. Denies depression, memory loss, mental disturbance, suicidal ideation, homicidal ideation, hallucinations, paranoia, feeling stressed, hearing voices. Endocrine: Denies cold intolerance, heat intolerance, excessive thirst, excessive hunger, excessive urination, weight loss, weight gain. Physical ExamGeneral Appearance: well nourished, well hydrated, no acute distressEyes, External: conjunctivae and lids normal, EOMIExternal Ears: normal, no lesions or deformities. Flaking, inflamed skin bilateral external ear canal without drainage or purulent matter. TMs steph enriquez. Light reflex intact.Hearing: grossly intactNasal: mucosa, septum, and turbinates normal, nares patentPharynx: tongue normal, posterior pharynx without erythema or exudate, no thrush/aphthous ulcerRespiratory, Auscultation: clear to auscultation bilaterally; no rales, rhonchi, or wheezesRespiratory, Effort: no intercostal retractions or use of accessory musclesCardiovascular, Auscultation: S1, S2 audible; no murmur, rub, or gallop; RRRAbdomen: soft, non- tender, no masses, bowel sounds normalGait & Station: normalSkin, Inspection: small, nonmobile, firm subcutaneous cyst left medial thighOrientation: oriented to time, place, and personMood & Affect: no depression, anxiety, or agitationCare Management Plan Transitions of CareInboundRate Your HealthIn general, would you say your health is? FairAssessment & Plan Problems:Added: Encounter for general adult medical examination with abnormal findings (ICD- V70.0) (NXW68-B65.01)Sebaceous cyst (ICD-706.2) (ZYB96-U11.3) Assessment: will refer to gen surg for consult regarding removalValvular malfunction (ICD- 996.02) (NTP59-B79) Assessment: history of valvular dysfunction , needs new consult for cardiology, has not seen one in years. will referVaginitis and vulvovaginitis (ICD-616.10) (YLV13-E57.0) Assessment: history of recurrent BV. will refill topical flagyl x 1, [facility]Otalgia, bilateral (ICD-388.70) (VAK10-Y88.03) Assessment: appears eczematous, will trial topical . follow up if not improving.Assessed:Anxiety depression (ICD-300.4) (JGC10-A91.8) Assessment: Will trial wellbutrin for smoking cessation and anxiety. Discussed risks, benefits, and side effects of medication. Pt declines counseling. will recheck in 6 weeks. Call with any questions or concerns.Tobacco user (ICD-305.1) (ACF99-T17.200) Assessment: will trial wellbutrin. has failed patches and chantix in the past.Obesity (ICD- 278.00) (BLV16-X77.09) Assessment: discussed diet and exercise routine.Removed:Screening examination for venereal disease (ICD-V74.5) (ICD10- Z11.3), DENTAL CARIES EXTENDING INTO PULP (ICD-521.03) (GYP61-L97.63)Assessment not SavedEncounter for general adult medical examination with abnormal findings (MEP11-K48.01): Health maintenance up to date. Continue working on healthy lifestyle choices. Continue following with INTERNET SALES MANAGER.Medications:METROCREAM 0.75 % CREAMWELLBUTRIN SR 150 MG [id number] Changes:New Prescription:WELLBUTRIN SR 150 MG [id number] 1 tablet by mouth each AM Qty: 30[Tablet] Refills: 2 Method: ElectronicMETROCREAM 0.75 % CREAM-1 appilcatorful nightly for 5 days Qty: 30[Gram] Refills: 0 Method: ElectronicRemoved:AMOXICILLIN 500 MG CAPS-1 tablet by mouth every 8 hours until gone, AZITHROMYCIN 500 MG ORAL TABLET-2 tabs by mouth x 1 now, FLUOXETINE HCL 10 MG ORAL CAPSULE-1 capsule by mouth every dayAllergies:No Known Allergies (updated 11/28/2017) Orders:HgBA1c [CPT-62365] TSH [CPT-40856] T-4 free [CPT- 44770] CBC W/DIFF [CPT-16949] COMP METABOLIC PANEL [CPT-05488] Preventive, Est, (18-39) [CPT-48137] Follow-Up Return to clinic: in 6 weeks for follow upAdditional Follow-Up: follow starting wellbutrin and review labsMedications:METROCREAM 0.75 % CREAM (METRONIDAZOLE (TOPICAL)) 1 appilcatorful nightly for 5 days #30[Gram] x 0 Route:VAGINAL Entered and Authorized by: Olga GEORGE Method used: Electronically to [facility] (retail) [address] [place] [address] Note to Pharmacy: Route: VAGINAL; RxID: [id number] SR 150 MG [id number] (BUPROPION HCL) Take 1 tablet by mouth each AM #30[Tablet] x 2 Route:ORAL Entered and Authorized by: Olga GEORGE Method used: Electronically to [facility] (retail) [address] [place] [address] Note to Pharmacy: Route: ORAL; RxID: [id number] signed by Olga GEORGE on 01/04/2020 at 1:56 PM Electr onically signed by Olga GEORGE on 01/06/2020 at 3:19 PM Name Value Range Interpretation Code Description Data Kitty rce(s) Supporting Document(s) ID Date Data Source [id number] 01/04/2020 10:59:00 AM EDT [facility] Name Value Range Interpretation Code Description Data Kitty rce(s) Supporting Document(s) Hemoglobin A1c/Hemoglobin.total in Blood 5.7 [facility] ([facility]) ID Date Data Source [id number] 01/04/2020 10:59:00 AM EDT [facility] ([facility]) Name Value Range Interpretation Code Description Data Kitty rce(s) Supporting Document(s) White Blood Count 8.8 4.0-10.0 [facility] ([facility]) Red Blood Count 4.71 4.00-5.40 [facility] ([facility]) Platelets 226 [id number] [facility] ([facility] [place] [facility] Hematocrit 45.3 MEDENT ([facility][1]) Hemoglobin 14.8 [facility] ([facility]) ID Date Data Source [id number] 01/04/2020 10:59:00 AM EDT [facility] ([facility]) Name Value Range Interpretation Code Description Data Kitty rce(s) Supporting Document(s) Free T4 1.23 [facility] ([facility]) Thyroid Stimulating Hormone 1.710 ME DENT ([facility]) ID Date Data Source [id number] 01/04/2020 10:59:00 AM EDT [facility] ([facility]) Name Value Range Interpretation Code Description Data Kitty rce(s) Supporting Document(s) Albumin [Mass/volume] in Serum or Plasma 4.0 MEDENT ([facility]) Alanine aminotransferase [Enzymatic activity/volume] in Serum or Pl asma 35 MEDENT ([facility]) Calcium [Mass/volume] in Serum or Plasma 9.2 MEDENT ([facility]) Carbon dioxide, total [Moles/volume] in Serum or Plasma 26 [facility] ([facility]) Chloride [Moles/volume] in Serum or Plasma 107 MEDENT ([facility]) Alkaline phosphatase [Enzymatic activity/volume] in Serum or Plasma 3 5 MEDENT ([facility]) Protein [Mass/volume] in Serum or Plasma 7.9 MEDENT ([facility]) Potassium [Moles/volume] in Serum or Plasma 4.3 MEDENT ([facility]) Aspartate aminotransferase [Enzymatic activity/volume] in Serum or Plasma 26 MED[facility] ([facility]) Sodium 139 [facility] Urea nitrogen [Mass/volume] in Serum or Plasma 10 MEDENT ([facility]) Glucose 102 83-110 MEDENT ([facility]) Creatinine For GFR 0.94 MEDENT ([facility]) ID Date Data Source [id number] 01/04/2020 12:00:00 AM EDT [facility] Name Value Range Interpretation Code Description Data Kitty rce(s) Supporting Document(s) HGBA1C 5.7 % [facility] Procedure Social History No Information Vital Signs ID Date Data Source UNK Name Value Range Interpretation Code Description Data Source(s) Body weight 199.00 [lb_av] 199.00 [lb_av] MEDEN T ([facility]) Body height 64 [in_i] 64 [in_i] MEDENT ([facility]i [facility]) 5'4" Body mass index (BMI) [Ratio] 34.2 kg/m2 34.2 k g/m2 MEDENT ([facility]) Heart rate 72 /min 72 /min MEDENT ([facility]io [facility]) Systolic blood pressure--sitting 104 mm[Hg] 104 mm[Hg] MEDENT ([facility]) Omron, large cuff/Ra Diastolic blood pressure--sitting 76 mm[Hg] 76 mm[Hg] MEDENT ([facility]) Omron, large cuff/Ra
[2021-02-26] MEDS ORDERED: ONDANSETRON 4MG/2ML VIAL IV ONE (01:25)
[2021-02-26] MEDS ORDERED: NS 1,000 ML IV ONE (01:25)
[2021-02-26] MEDS ORDERED: KETOROLAC 30 MG/ML 1ML VIAL IV ONE (01:25)
--- NOTE | 2021-02-26 02:41 | REPVR ---
PROCEDURE INFORMATION: Exam: CT Abdomen and Pelvis without Contrast Exam date and time: 02/26/21 (1:32am) Age: 35 years old Clinical indication: Generalized abdominal pain. Evaluate for nephrolithiasis. TECHNIQUE: Imaging protocol: Computed tomography of the abdomen and pelvis without contrast Radiation optimization: All CT scans at this facility use at least one of these dose optimization techniques: automated exposure control; mA and/or kV adjustment per patient size (includes targeted exams where dose is matched to clinical indication); or iterative reconstruction. COMPARISON: CT ABDOMEN PELVIS of 03/28/19 FINDINGS: Liver: Normal. No solid mass. Gallbladder and bile ducts: Normal. No calcified stones. No ductal dilatation. Pancreas: Normal. No ductal dilatation. Spleen: Normal. No splenomegaly. Adrenal glands: Normal. No mass. Kidneys and ureters: Normal. No hydronephrosis. Stomach and bowel: Distended stomach, filled with fluid and food debris. Unremarkable. No obstruction. No mucosal thickening. Appendix: A normal appendix is visualized. Intraperitoneal space: Unremarkable. No free air. No significant fluid collection. Vasculature: Unremarkable. No abdominal aortic aneurysm. Lymph nodes: Unremarkable. No enlarged lymph nodes. Urinary bladder: Unremarkable as visualized. Reproductive: Unremarkable as visualized. Bones/joints: Unremarkable. No acute fracture. Soft tissues: Unremarkable. IMPRESSION: No acute findings. No hydronephrosis is appreciated. No radiodense urinary tract stones are visualized. Electronically signed by: Ria Rubio On 02/26/2021 02:41:21 AM
[2021-02-26 02:48] LABS: BASO # 0.1 10^3/uL (0.0-0.2); BASO % 0.2 % (0.0-1.0); EOS # 0.1 10^3/uL (0.0-0.5); EOS % 0.2 % (0.0-3.0); HEMATOCRIT 40.2 % (36.0-47.0); HEMOGLOBIN 13.4 g/dl (12.0-15.5); LYMPH # 1.9 10^3/uL (1.5-5.0); LYMPH % 8.4 % (24.0-44.0); MEAN CORPUSCULAR HEMOGLOBIN 31.5 pg (27.0-33.0); MEAN CORPUSCULAR HGB CONC 33.3 g/dl (32.0-36.5); MEAN CORPUSCULAR VOLUME 94.6 fl (80.0-96.0); MONO # 1.1 10^3/uL (0.0-0.8); MONO % 4.6 % (2.0-8.0); NEUTROPHILS # 19.7 10^3/uL (1.5-8.5); NEUTROPHILS % 85.9 % (36.0-66.0); PLATELET COUNT, AUTOMATED 216 10^3/uL (150-450); RED BLOOD COUNT 4.25 10^6/uL (4.00-5.40); WHITE BLOOD COUNT 22.9 10^3/uL (4.0-10.0)
[2021-02-26 03:13] LABS: BLOOD UREA NITROGEN 17 MG/DL (7-18); CALCIUM LEVEL 8.9 MG/DL (8.5-10.1); CARBON DIOXIDE LEVEL 27 MEQ/L (21-32); CHLORIDE LEVEL 107 MEQ/L (98-107); CREATININE FOR GFR 0.96 MG/DL (0.55-1.30); GLOMERULAR FILTRATION RATE > 60.0 (>60); GLUCOSE, FASTING 154 MG/DL (70-100); MAGNESIUM LEVEL 1.9 MG/DL (1.8-2.4); POTASSIUM SERUM 3.5 MEQ/L (3.5-5.1); SODIUM LEVEL 143 MEQ/L (136-145)
--- OUTSIDE RECORDS SUMMARY | 2021-02-26 04:01 | CCD ---
Author Author [facility] Organization [facility] Address Unknown Phone Unavailable Care Team Providers Care Physician Office Secretary Name Role Phone Brendon ZACARIAS MD Unavailable Unavailable ANTECOLBrendon MD Unavailable Unavailable ANTECOLBrendon MD Unavailable Unavailable ANTECOLBrendon MD Unavailable Unavailable ANTECOLBrendon MD Unavailable Unavailable ANTECOLBrendon MD Unavailable Unavailable ANTECOLBrendon MD Unavailable Unavailable ANTECOLBrendon MD Unavailable Unavailable ANTECOLBrednon MD Unavailable Unavailable ANTECOLBrendon MD Unavailable Unavailable [...] ANTECOL, Brendon BENAVIDES MD Unavailable Unavailable ANTECOL, Brenodn BENAVIDES MD Unavailable Unavailable ANTECOL, Brendon BENAVIDES MD Unavailable Unavailable ANTECOL, Brendon BENAVIDES MD Unavailable Unavailable ANTECOL, Brendon BENAVIDES MD Unavailable Unavailable ANTECOL, Brendon BENAVIDES MD Unavailable Unavailable ANTECOL, Brendon BENAVIDES MD Unavailable Unavailable ANTECOL, Brendon BENAVIDES MD Unavailable Unavailable ANTECOL, Brendon BENAVIDES MD Unavailable Unavailable ANTECOL, Brendon BENAVIDES MD Unavailable Unavailable ANTECOL, Brednon BENAVIDES MD Unavailable Unavailable ANTECOL, Brendon BENAVIDES [...] is protected by Article 27-F of the [facility] Public Health law. If you continue you may have access to information: Regarding HIV / AIDS; Provided by facilities licensed or operated by the [facility] Office of Mental Health; or Provided by the [facility] Office for People With Developmental Disabilities. If such information is present, then the following [facility] mandated warning applies: This information [...] law may result in a fine or snf sentence or both. A general authorization for the release of medical or other information is NOT sufficient authorization for further disc losure. Family History Family Member Name Family Member Gender Family Member Status Date o f Status Description Data Source(s) Unknown Unknown Problem [facility] Unknown Unknown Problem MEDENT ([facility], ) Unknown Unknown Problem MEDENT ([facility], ) Encounters Encounter Providers Location Date Indications Data Source(s ) Outpatient Attender: KENNEDY ZACARIAS MD Main Office 02/17/2020 08:45:00 AM EDT MEDENT ([facility]) Outpatient FP 01/27/2020 10:58:01 AM EDT [facility] Outpatient FP 01/27/2020 10:58:01 AM EDT [facility] Outpatient FP 01/04/2020 05:18:00 PM EDT [facility] Outpatient FP 01/04/2020 05:16:00 PM EDT [facility] Outpatient FP 01/04/2020 01:58:02 PM EDT [facility] Outpatient FP 01/04/2020 01:56:59 PM EDT [facility] Outpatient FP 01/02/2020 12:02:19 AM EDT [facility] Outpatient FP 01/01/2020 02:23:01 PM EDT [facility] Outpatient FP 01/01/2020 02:22:01 PM EDT [facility] Outpatient FP 01/01/2020 02:21:01 PM EDT [facility] Outpatient FP 12/31/2019 12:13:00 PM EDT [facility] Medications Medication Brand Name Start Date [...] AM EDT ORAL active MEDENT ([facility]) Clindamycin 300 MG Oral Capsule Clindamycin HCL 02/16/2020 12:00:00 A M EDT ORAL active MEDENT ([facility]) Clindamycin 300 MG Oral Capsule [...] type / Coverage type Policy ID Covered green party ID Covered green party's relationship to wolfe Policy [place] Plan Information ARTEMIO [id number] SP [id number] MEDICAID [id number] SP [id number] Medicaid S [id number] S [id number] Managed Care - [facility] P [id number] S [id number] Managed Care - [facility] P [id number] S [id number] Medicaid P [id number] S [id number] Medicaid S [id number] S [id number] Managed Care - [facility] Community Plan P [id number] S [id number] [facility] COMMUNITY PLAN [facility] [id number] SP [id number] Self Pay P UNAVAILABLE S UNAVAILA BLE [facility] Health Maintenance Organization (HMO) [id number] Self [id number] [facility] COMMUNITY PLAN [facility] [id number] SP [id number] [place] O [id number] S [id number] Medicaid [place] Medigap Part [id number] Self Artem[place] Care [place] Medicaid ..[id number] Self [employer] NO FAULT [id number] SP [id number] [facility] COMMUNITY PLAN [facility] [id number] SP [id number] Sliding Fee Scale O none S no ne [facility]) O [id number] S [id number] [facility] COMMUNITY PLAN XIX [id number] 18 [id number] [facility] COMMUNITY PLAN [facility] [id number] SP [id number] MEDICAID [id number] SP [id number] SELF PAY ONLY [id number] SP [id number] [facility] COMMUNITY PLAN [facility] [id number] SP [id number] Problems, Conditions, and Diagnoses Code Display Name Description Problem Type Effective Dates Data Source(s) V70.0 Encounter for general adult medical exam ination with abnormal findings Encounter for general adult medical examination with abnormal findings 01/04/2020 01:56:06 PM EDT [facility] 706.2 Sebaceous cyst Sebaceous cyst 01/04/2020 01:56: 06 PM EDT [facility] I38 Endocarditis, valve unspecified Valvular malfunction 01/04/2020 01:56:06 PM EDT [facility] N76.0 Acute vaginitis Vaginitis and vulvovaginitis 01:56:06 PM EDT [facility] 388.70 Otalgia, bilateral Otalgia, bilateral 0 01:56:06 PM EDT [facility] Surgeries/Procedures Procedure Description Date Indications Data Source(s) ECG ROUTINE ECG W/LEAST 12 LDS W/I&R 02/17/2020 12:00: 00 AM EDT [facility] ([facility]) Results ID Date Data Source [id number] 10/14/2020 12:00:00 AM EDT [facility] Name Value Range Interpretation Code Description Data Kitty rce(s) Supporting Document(s) SARS-CoV2 Rapid Antigen Positive [facility] This lab was ordered by [facility] and reported by [facility]. ID Date Data Source [id number] 05/09/2020 12:00:00 AM EST [facility] Name Value Range Interpretation Code Description Data Kitty rce(s) Supporting Document(s) SARS-CoV2 Rapid Antigen [facility] and reported by [facility]. ID Date Data Source [id number] 01/04/2020 12:40:38 PM EDT [facility] Measurements & CalculationsHeight: 64 inches 162.56 [...] or Preferred Language: EnglishFamily and Home Address: [address] [place] [address] What is your housing situation today? I have housing Are you worried about losing your housing? NoMoney and Resources Employed? Yes Your current work situation? FT Insurance: Managed Care - [facility] Community PlanIn the past year, have you or any family members you live with been unable to get any of the following when it was really needed? Denies Insecurity: food, utilities, clothing, early childhood special educator, phone, legal services, otherWithin the past year [...] History Medical History:depression as teenagerheart valve issuesSurgical History:c-[id number] History:Hypertension (Father)brain cancer (cousin)uterine cancer (cousin)pancreatic cancer [...] bowel or bladder concerns. Due for annual DIRECTOR OF SECURITY exam, [facility] Last pap she believes was over a year ago and normal. Would like to see a psychology tech for her past history of "heart valve issues". [place].Transitions of Care InboundProblem ReviewProblem List was reviewed and/or updated during this visit.Medication Reconciliation & ReviewMedication List was reviewed and/or updated during this visit, including review of any ulex-ahs-cgahyti medications, herbal therapies, and/or supplements.Allergy ReviewAllergy List [...] medical examination with abnormal findings (ICD- V70.0) (OUE39-W41.01)Sebaceous cyst (ICD-706.2) (SVU27-M19.3) Assessment: will refer to gen surg for consult regarding removalValvular malfunction (ICD- 996.02) (LIG49-G67) Assessment: history of valvular dysfunction , needs new consult for cardiology, has not seen one in years. will referVaginitis and vulvovaginitis (ICD-616.10) (ZGT76-I33.0) Assessment: history of recurrent BV. will refill topical flagyl x 1, [facility]Otalgia, bilateral (ICD-388.70) (TLI95-R13.03) Assessment: appears eczematous, will trial topical . follow up if not improving.Assessed:Anxiety depression (ICD-300.4) (ZFI19-C35.8) Assessment: Will trial wellbutrin for smoking cessation and anxiety. Discussed risks, benefits, and side effects of medication. Pt declines counseling. will recheck in 6 weeks. Call with any questions or concerns.Tobacco user (ICD-305.1) (JVY60-E51.200) Assessment: will trial wellbutrin. has failed patches and chantix in the past.Obesity (ICD- 278.00) (ZFU24-S61.09) Assessment: discussed diet and exercise routine.Removed:Screening examination for venereal disease (ICD-V74.5) (ICD10- Z11.3), DENTAL CARIES EXTENDING INTO PULP (ICD-521.03) (WUN87-I37.63)Assessment not SavedEncounter for general adult medical examination with abnormal findings (HLR28-E97.01): Health maintenance up to date. Continue working on healthy lifestyle choices. Continue following with DIRECTOR OF SECURITY.Medications:METROCREAM 0.75 % CREAMWELLBUTRIN SR 150 MG [id number] Changes:New Prescription:WELLBUTRIN SR 150 MG [id number] 1 tablet by mouth each AM Qty: [...] every dayAllergies:No Known Allergies (updated 11/28/2017) Orders:HgBA1c [CPT-03654] TSH [CPT-99400] T-4 free [CPT- 46937] CBC W/DIFF [CPT-02046] COMP METABOLIC PANEL [CPT-66518] Preventive, Est, (18-39) [CPT-36397] Follow-Up Return to clinic: in 6 weeks for follow upAdditional Follow-Up: follow starting wellbutrin and review labsMedications:METROCREAM 0.75 % CREAM (METRONIDAZOLE (TOPICAL)) 1 appilcatorful nightly for 5 days #30[Gram] x 0 Route:VAGINAL Entered and Authorized by: Olga GEORGE Method used: Electronically to [facility] (retail) [address] [place] [address] Note to Pharmacy: Route: VAGINAL; RxID: [id number] SR 150 MG [id number] (BUPROPION HCL) Take 1 tablet by mouth each AM #30[Tablet] x 2 Route:ORAL Entered and Authorized by: Olga GEORGE Method used: Electronically to [facility] (retail) [address] [place] [address] Note to Pharmacy: Route: ORAL; RxID: [id number] signed by Olga GEORGE on 01/04/2020 at 1:56 PM Electr onically signed by Olga GEORGE on 01/06/2020 at 3:19 PM Name Value Range Interpretation Code Description Data Kitty rce(s) Supporting Document(s) ID Date Data Source [id number] 01/04/2020 10:59:00 AM EDT MEDENT ([facility]) Name Value Range Interpretation Code Description Data Kitty rce(s) Supporting Document(s) Hemoglobin A1c/Hemoglobin.total in Blood 5.7 MEDENT ([facility]) ID Date Data Source [id number] 01/04/2020 10:59:00 AM EDT [facility] ([facility]) Name Value Range Interpretation Code Description Data Kitty rce(s) Supporting Document(s) White Blood Count 8.8 4.0-10.0 MEDENT ([facility]) Red Blood Count 4.71 4.00-5.40 MEDENT ([facility]io [facility]) Platelets 226 172-450 [facility] Hematocrit 45.3 MEDENT ([facility]) Hemoglobin 14.8 MEDENT ([facility]) ID Date Data Source [id number] 01/04/2020 10:59:00 AM EDT MEDENT ([facility]) Name Value Range Interpretation Code Description Data Kitty rce(s) Supporting Document(s) Free T4 1.23 [facility] ([facility]) Thyroid Stimulating Hormone 1.710 ME DENT ([facility]) ID Date Data Source [id number] 01/04/2020 10:59:00 AM EDT MED[facility] ([facility]) Name Value Range Interpretation Code Description Data Kitty rce(s) Supporting Document(s) Albumin [Mass/volume] in Serum or Plasma 4.0 MED[facility] ([facility]) Alanine aminotransferase [Enzymatic activity/volume] in Serum or Pl asma 35 MEDENT ([facility]) Calcium [Mass/volume] in Serum or Plasma 9.2 MED[facility] ([facility]) Carbon dioxide, total [Moles/volume] in Serum or Plasma 26 MED[facility] ([facility]) Chloride [Moles/volume] in Serum or Plasma 107 MEDENT ([facility]) Alkaline phosphatase [Enzymatic activity/volume] in Serum or Plasma 3 5 MED[facility] ([facility]) Protein [Mass/volume] in Serum or Plasma 7.9 MEDENT ([facility]) Potassium [Moles/volume] in Serum or Plasma 4.3 MED[facility] ([facility]) Aspartate aminotransferase [Enzymatic activity/volume] in Serum or Plasma 26 MED[facility] ([facility]) Sodium 139 [facility] Urea nitrogen [Mass/volume] in Serum or Plasma 10 MED[facility] ([facility]) Glucose 102 83-110 MEDENT ([facility]) Creatinine For GFR 0.94 MED[facility] ([facility]) ID Date Data Source [id number] 01/04/2020 12:00:00 AM EDT [facility] Name Value Range Interpretation Code Description Data Kitty rce(s) Supporting Document(s) HGBA1C 5.7 % [facility] Procedure Social History No Information Vital Signs ID Date Data Source UNK Name Value Range Interpretation Code Description Data Source(s) Body weight 199.00 [lb_av] 199.00 [lb_av] MEDEN T ([facility]) Body height 64 [in_i] 64 [in_i] MEDENT ([facility]i [facility]) 5'4" Body mass index (BMI) [Ratio] 34.2 kg/m2 34.2 k g/m2 MED[facility] ([facility]) Heart rate 72 /min 72 /min MED[facility] ([facility]) Systolic blood pressure--sitting 104 mm[Hg] 104 mm[Hg] MEDENT ([facility]) Omron, large cuff/Ra Diastolic blood pressure--sitting 76 mm[Hg] 76 mm[Hg] MEDENT ([facility]) Omron, large cuff/Ra
[2021-02-26] MEDS ORDERED: CEFP200T PO (04:27)
[2021-02-26] MEDS ORDERED: CEFDINIR 300 MG CAP (OMNICEF) PO ONE (04:35)
[2021-02-26 05:38] VITALS: BP 105/58
== END 2021-02-26 05:54 | disposition home or self-care (01) ==
LOC: M ED 00:40
DX: N10 Acute pyelonephritis (principal); R11.2 Nausea with vomiting, unspecified; F17.200 Nicotine dependence, unspecified, uncomplicated
CPT/HCPCS: 74176; 80048; 81001; 83735; 84702; 85025; 96374; 96375; 99284; J1885; J2405

== ENCOUNTER 2021-04-03 07:10 | Outpatient (RCR) ==
[~2021-04-03 07:10] MED LIST changes: +CEFP200T PO
== END 2021-04-03 15:00 | disposition home or self-care (01) ==
LOC: M EMP 07:10
PROVIDERS: ATTEND Pediatrics
DX: Z11.52 Encounter for screening for COVID-19 (principal)

== ENCOUNTER 2022-02-13 07:29 | Emergency (ER) | payer OTHER ==
[~2022-02-13] VITALS: Ht 162.6 cm; Wt 85.2 kg
[2022-02-13 07:29] VITALS: BP 110/61
[2022-02-13] MEDS ORDERED: KETOROLAC TROMETHAMINE 10 MG TAB PO ONE (09:35)
[2022-02-13] MEDS ORDERED: IBUP80TA PO (09:37)
== END 2022-02-13 09:52 | disposition home or self-care (01) ==
LOC: M ED 07:29
DX: M77.02 Medial epicondylitis, left elbow (principal); K21.9 Gastro-esophageal reflux disease without esophagitis; F31.9 Bipolar disorder, unspecified; F32.A Depression, unspecified; F17.200 Nicotine dependence, unspecified, uncomplicated; Z79.899 Other long term (current) drug therapy

== ENCOUNTER → 2022-06-27 | Outpatient (REF) | payer OTHER ==
[~2022-06-27] MED LIST changes: +IBUP80TA PO
[2022-06-27 14:15] LABS: BASO # 0.1 10^3/uL (0.0-0.2); BASO % 0.6 % (0.0-1.0); EOS # 0.1 10^3/uL (0.0-0.5); EOS % 1.8 % (0.0-3.0); HEMATOCRIT 43.7 % (36.0-47.0); HEMOGLOBIN 14.2 g/dl (12.0-15.5); LYMPH # 2.8 10^3/uL (1.5-5.0); LYMPH % 35.1 % (24.0-44.0); MEAN CORPUSCULAR HGB CONC 32.5 g/dl (32.0-36.5); MEAN CORPUSCULAR VOLUME 98.4 fl (80.0-96.0); MONO # 0.5 10^3/uL (0.0-0.8); MONO % 6.2 % (2.0-8.0); NEUTROPHILS # 4.4 10^3/uL (1.5-8.5); PLATELET COUNT, AUTOMATED 221 10^3/uL (150-450); RED BLOOD COUNT 4.44 10^6/uL (4.00-5.40); WHITE BLOOD COUNT 7.9 10^3/uL (4.0-10.0)
[2022-06-27 14:45] LABS: FERRITIN 37.7 NG/ML (7.3-270.7); THYROID STIMULATING HORMONE 2.294 uIU/ML (0.55-4.78)
[2022-06-27 14:46] LABS: FOLATE 7.2 NG/ML (>5.4); PERCENT SATURATION 13.8 % (13.2-45.0); TOTAL 25(OH) VITAMIN D 46.1 NG/ML (20.0-100.0)
== END ==
LOC: M LAB REF 13:10
PROVIDERS: ATTEND Nurse Practitioner Family
DX: L65.9 Nonscarring hair loss, unspecified (principal)

== ENCOUNTER → 2022-08-01 | Outpatient (REF) | payer OTHER ==
[2022-08-01 12:34] LABS: AMORPHOUS SEDIMENT SMALL (NEGATIVE); APPEARANCE, URINE CLEAR (CLEAR); BACTERIA, URINE AUTO 1+ (NEGATIVE); BILIRUBIN, URINE AUTO NEGATIVE (NEGATIVE); BLOOD, URINE BLOOD 2+ (NEGATIVE); COLOR, URINE AMBER (YELLOW); GLUCOSE, URINE (UA) AUTO NEGATIVE (NEGATIVE); KETONE, URINE AUTO NEGATIVE (NEGATIVE); LEUKOCYTE ESTERASE, URINE AUTO 1+ (NEGATIVE); NITRITE, URINE AUTO POSITIVE (NEGATIVE); PROTEIN, URINE AUTO NEGATIVE (NEGATIVE); RBC, URINE AUTO 2 /HPF (0-3); SPECIFIC GRAVITY URINE AUTO 1.009 (1.002-1.035); SQUAMOUS EPITHELIAL CELL UR AU 2 /HPF (0-6); UROBILINOGEN, URINE AUTO 0.2 mg/dL (0.0-2.0); WBC, URINE AUTO 19 /HPF (0-3)
== END ==
LOC: M LAB REF 11:55
PROVIDERS: ATTEND Physician Assistant Medical
DX: N39.0 Urinary tract infection, site not specified (principal)

== ENCOUNTER 2023-04-23 21:47 | Emergency (ER) | payer OTHER, SELFPAY ==
[~2023-04-23] VITALS: Ht 162.6 cm; Wt 78.1 kg
[2023-04-23 23:36] LABS: RSV AMPLIFICATION NEGATIVE (NEGATIVE)
[2023-04-24] MEDS ORDERED: NS 1,000 ML IV ONE (01:25)
[2023-04-24] MEDS ORDERED: ONDANSETRON 4MG 2ML VIAL IV ONE (01:25)
[2023-04-24 02:41] LABS: BASO % 0.4 % (0.0-1.0); EOS # 0.1 10^3/uL (0.0-0.5); EOS % 0.9 % (0.0-3.0); HEMATOCRIT 36.5 % (36.0-47.0); HEMOGLOBIN 12.3 g/dl (12.0-15.5); LYMPH % 27.2 % (24.0-44.0); MEAN CORPUSCULAR HEMOGLOBIN 32.5 pg (27.0-33.0); MEAN CORPUSCULAR HGB CONC 33.7 g/dl (32.0-36.5); MEAN CORPUSCULAR VOLUME 96.3 fl (80.0-96.0); MONO # 0.7 10^3/uL (0.0-0.8); MONO % 9.7 % (2.0-8.0); NEUTROPHILS # 4.6 10^3/uL (1.5-8.5); NEUTROPHILS % 61.7 % (36.0-66.0); PLATELET COUNT, AUTOMATED 195 10^3/uL (150-450); RED BLOOD COUNT 3.79 10^6/uL (4.00-5.40); WHITE BLOOD COUNT 7.4 10^3/uL (4.0-10.0)
[2023-04-24] MEDS ORDERED: POTASSIUM CHLORIDE 10MEQ SR TABLET PO ONE (02:45)
[2023-04-24] MEDS ORDERED: ONDA4TAB6 PO (02:49)
[2023-04-24 02:55] VITALS: BP 85/49; TEMP 98.5; O2SAT 100
== END 2023-04-24 03:17 | disposition home or self-care (01) ==
LOC: M ED 21:47
DX: U07.1 COVID-19 (principal); F17.200 Nicotine dependence, unspecified, uncomplicated; F31.9 Bipolar disorder, unspecified; K21.9 Gastro-esophageal reflux disease without esophagitis; F32.A Depression, unspecified; Z79.83 Long term (current) use of bisphosphonates; Z79.1 Long term (current) use of non-steroidal anti-inflammatories (NSAID)
CPT/HCPCS: 80047; 84702; 85025; 87631; 96361; 96374; 99283; J2405

== ENCOUNTER 2024-05-15 22:15 | Emergency (ER) | payer MEDICAID ==
[~2024-05-15 22:15] MED LIST changes: +ONDA-282 PO
[2024-05-15 22:27] VITALS: BP 122/80; TEMP 98.8; O2SAT 98
[2024-05-15 23:35] LABS: BASO % 0.2 % (0.0-1.0); EOS # 0.1 10^3/uL (0.0-0.5); HEMOGLOBIN 13.5 g/dl (12.0-15.5); LYMPH # 3.9 10^3/uL (1.5-5.0); LYMPH % 32.3 % (24.0-44.0); MEAN CORPUSCULAR HEMOGLOBIN 32.4 pg (27.0-33.0); MEAN CORPUSCULAR HGB CONC 33.8 g/dl (32.0-36.5); MEAN CORPUSCULAR VOLUME 95.9 fl (80.0-96.0); MONO # 0.6 10^3/uL (0.0-0.8); MONO % 4.8 % (2.0-8.0); NEUTROPHILS # 7.4 10^3/uL (1.5-8.5); NEUTROPHILS % 61.4 % (36.0-66.0); PLATELET COUNT, AUTOMATED 244 10^3/uL (150-450); RED BLOOD COUNT 4.17 10^6/uL (4.00-5.40); WHITE BLOOD COUNT 12.1 10^3/uL (4.0-10.0)
[2024-05-15 23:55] LABS: BLOOD UREA NITROGEN 12 MG/DL (9-23); CALCIUM LEVEL 9.5 MG/DL (8.5-10.1); CARBON DIOXIDE LEVEL 29 MMOL/L (20-31); CHLORIDE LEVEL 105 MMOL/L (98-107); CK-MB VALUE MASS < 1.0 NG/ML (<3.6); CPK CREATINE PHOSPHOKINASE 123 U/L (34-145); CREATININE FOR GFR 0.91 MG/DL (0.55-1.30); GLOMERULAR FILTRATION RATE > 60.0 (>60); GLUCOSE, FASTING 91 MG/DL (60-100); MB/CK RELATIVE INDEX 0.81 (< OR =4); POTASSIUM SERUM 3.9 MMOL/L (3.5-5.1); SODIUM LEVEL 143 MMOL/L (136-145)
== END 2024-05-16 00:30 | disposition left against medical advice (07) ==
LOC: M ED 22:15
DX: Z53.21 Procedure and treatment not carried out due to patient leaving prior to being seen by health care provider (principal)

== ENCOUNTER → 2024-07-23 | Outpatient (REF) | payer MEDICAID, BC ==
[2024-07-23 16:37] LABS: ALBUMIN 3.7 G/DL (3.2-5.2); ALKALINE PHOSPHATASE 59 U/L (35-104); ALT/SGPT 27 U/L (7.0-40); AST/SGOT 20 U/L (<34); BILIRUBIN,TOTAL 0.6 MG/DL (0.3-1.2); BLOOD UREA NITROGEN 9 MG/DL (9-23); CARBON DIOXIDE LEVEL 25 MMOL/L (20-31); CHLORIDE LEVEL 108 MMOL/L (98-107); CREATININE FOR GFR 0.71 MG/DL (0.55-1.30); GLOMERULAR FILTRATION RATE > 60.0 (>60); GLUCOSE, FASTING 90 MG/DL (60-100); MAGNESIUM LEVEL 2.2 MG/DL (1.8-2.4); PHOSPHORUS LEVEL 2.9 MG/DL (2.5-4.9); POTASSIUM SERUM 4.4 MMOL/L (3.5-5.1); SODIUM LEVEL 142 MMOL/L (136-145); TOTAL PROTEIN 7.3 G/DL (5.7-8.2)
== END ==
LOC: M LAB REF 15:01
PROVIDERS: ATTEND Nurse Practitioner Family
DX: R00.2 Palpitations (principal)

== ENCOUNTER → 2024-07-24 | Outpatient (CLI) | payer BC, MEDICAID | LOC: M RAD 09:03 | PROVIDERS: ATTEND Nurse Practitioner Family | DX: M79.672 Pain in left foot (principal) ==

== ENCOUNTER → 2024-07-30 | Outpatient (CLI) | payer BC | LOC: M EKG 16:49 | PROVIDERS: ATTEND Nurse Practitioner Family | DX: R07.9 Chest pain, unspecified (principal); Z53.9 Procedure and treatment not carried out, unspecified reason ==

== ENCOUNTER → 2025-04-07 | Outpatient (CLI) | payer BC | LOC: M WUC 09:54 | PROVIDERS: ATTEND Student in an Organized Health Care Education/Training Program | DX: M79.672 Pain in left foot (principal) ==